=== PATIENT | female | born 1945 | race Caucasian/White ===

== ENCOUNTER 2016-11-24 05:26 | Day surgery (SDC) | payer MEDICARE, BC ==
[2016-11-24] MEDS ORDERED: Midazolam 1 MG/ML 2 ML SDV IV ONE ×3 (05:27→06:35)
[2016-11-24] MEDS ORDERED: fentaNYL 100 MCG/2 ML SDV IV ONE ×2 (05:27→06:34)
[2016-11-24] MEDS ORDERED: Dextrose 5%-0.45% NaCl 1,000 ML IV SCH ×2 (06:00→07:15)
[2016-11-24] MEDS ORDERED: Sodium Chloride 0.9% 10 ML Syringe FLUSH PRN ×2 (06:00→07:08)
[2016-11-24] MEDS ORDERED: Midazolam 1 MG/ML 2 ML SDV ONE (06:17)
[2016-11-24] MEDS ORDERED: fentaNYL 100 MCG/2 ML SDV ONE (06:17)
[2016-11-24 07:40] VITALS: BP 103/49
--- NOTE | 2016-11-24 14:05 | OR ---
DATE: 11/24/2016 PROCEDURE: Esophagogastroduodenoscopy and multiple pinch biopsies. INSTRUMENT USED: GIF-Q180 Olympus video panendoscope. PREMEDICATIONS: No oral topical anesthesia used. Fentanyl 100 mcg intravenous, Versed 2 mg intravenous, nasal O2 cannula. 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 INDICATION: The patient with persistent abdominal pain, dyspepsia, as well as nausea, unexplained, and not responsive to medical measures, on PPI. Esophagogastroduodenoscopy is performed for detection of any active erosive lesions, Talavera's esophagus and/or malignancy also under consideration, H. pylori status to be determined, small bowel biopsies to be obtained for celiac disease if indicated, endoscopic hemostasis therapy if needed. DESCRIPTION OF PROCEDURE: The scope was passed with ease. Adequate visualization of the esophagus was made from proximal to distal areas. No upper esophageal lesions identified. No distal esophageal stricture. No uphill or downhill esophageal varices. No Glendy-Goodwin tear. No evidence of erosive esophagitis by [place] criteria. No esophageal polyp or tumor mass identified. Z-line was seen at 40 cm distal to the oral verge, configuration consistent with grade 1 by ZAP classification. No proximal gastric varices noted. Gastric fundus examination by retroflexion showed no malignant lesions, no gastric ulcer, malignant mass, or vascular ectasia identified. Patchy areas of erythema were noted in the antrum. Duodenal bulb showed no ulcer. Visualized second part of the duodenum, showed some prominent fold. Photographs were taken, multiple pinch biopsies were obtained. Ampulla of Vater was found to be normal. Multiple pinch biopsies 4 in number were taken from different areas of the 2nd part of the duodenum and tissues were also obtained from the duodenal bulb at 9 o'clock and 12 o'clock positions and sent for any histopathologic evidence of celiac disease. Multiple pinch biopsies were obtained from the gastric antrum and proximal body and sent for PyloriTek test for H. pylori and histopathology. No bleeding was noted from any of the visualized areas at the completion of examination. IMPRESSION: Patchy antral gastritis. The patient tolerated the procedure well. [facility] /[id number]
== END 2016-11-24 08:57 | disposition home or self-care (01) ==
LOC: DL.ENDO 05:26
PROVIDERS: ATTEND Internal Medicine Gastroenterology
DX: K29.50 Unspecified chronic gastritis without bleeding (principal); F41.1 Generalized anxiety disorder; M19.90 Unspecified osteoarthritis, unspecified site; E78.5 Hyperlipidemia, unspecified; K21.9 Gastro-esophageal reflux disease without esophagitis; E03.9 Hypothyroidism, unspecified; M81.0 Age-related osteoporosis without current pathological fracture; K57.30 Diverticulosis of large intestine without perforation or abscess without bleeding; K80.20 Calculus of gallbladder without cholecystitis without obstruction; Z87.891 Personal history of nicotine dependence; Z98.890 Other specified postprocedural states
CPT/HCPCS: 43239; 87077; J2250; J3010; J7042; 88305; 88342

== ENCOUNTER 2017-05-30 13:20 | Emergency (ER) | payer MEDICARE, BC ==
[2017-05-30 13:32] VITALS: BP 82/64
[2017-05-30] MEDS ORDERED: Sodium Chloride 0.9% 10 ML Syringe FLUSH PRN (13:56)
[2017-05-30] MEDS ORDERED: Sodium Chloride 0.9% 1,000 ML IV ONE (13:58)
[2017-05-30] MEDS ORDERED: Sodium Chloride 0.9% 1,000 ML IV SCH (16:00)
--- NOTE | 2017-05-30 17:11 | EDM.PDOC ---
Scribed by Marleny Vuong 05/30/17 [id number] for Mario Weiss MD ED HPI GENERAL MEDICAL PROBLEM - General Chief Complaint: General Stated Complaint: [id number] LOW BLOOD PRESSURE Time Seen by Provider: 05/30/17 13:30 Source of Information: Reports: Patient, RN, RN Notes Reviewed History Limitations: Reports: No Limitations - History of Present Illness INITIAL COMMENTS - FREE TEXT/NARRATIVE: Patient presents from home by POV with complaint of generalized abdominal pain, loss of appetite, generalized weakness, and profound orthostatic dizziness with a brief syncopal episode this morning. Patient had her first chemo treatment on May 26. She felt fine the day of chemo and began to have abdominal pain. She denies any fever, chills, nausea, vomiting or diarrhea. She does admit to some generalized body aches. Duration: Getting Worse Location: Reports: Generalized Quality: Reports: Ache Severity: Severe Improves with: Reports: None Worsens with: Reports: None Associated Symptoms: Reports: No Other Symptoms Right Upper Abdomen Pain Score (Numeric/FACES): 10 - Related Data Allergies Allergy/AdvReac Type Severity Reaction Status Date / Time adhesive tape Allergy Rash Verified 11/24/16 05:42 benzalkonium chloride Allergy Rash Verified 11/24/16 05:42 [From Neosporin Nickolas To Go] Iodinated Contrast- Oral and Allergy Hives Verified 11/24/16 05:42 IV Dye pramoxine HCl Allergy Rash Verified 11/24/16 05:42 [From Neosporin Nickolas To Go] Home Meds: Home Meds Gabapentin [Neurontin] 300 mg PO BID 04/15/15 [History] Metoprolol Succinate [Toprol XL] 25 mg PO WITHDINNER 04/15/15 [History] Multivitamin [Multiple Vitamins] 1 tab PO DAILY 04/15/15 [History] Timolol [Betimol 0.5% Ophth Soln] 1 drop EYERT BID 04/15/15 [History] atorvaSTATin [Lipitor] 10 mg PO BEDTIME 04/15/15 [History] Cholecalciferol (Vitamin D3) [Vitamin D3] 400 units PO WITHLUNCH 04/16/15 [ History] Calcium Carbonate/Vitamin D3 [Calcium 500-Vit D3 400 Tablet] 1 tab PO DAILY [History] Fluocinonide 1 applic PO BID PRN 10/24/15 [History] Levothyroxine [Synthroid] 100 mcg PO ACBREAKFAST 10/24/15 [History] Acetaminophen [Tylenol Arthritis] 650 mg PO Q4HR PRN 08/10/16 [History] Cyanocobalamin (Vitamin B-12) [Vitamin B-12] 5,000 mcg SL DAILY 08/10/16 [ History] Loteprednol Etabonate [Alrex] 1 drop EYEBOTH DAILY 08/11/16 [History] Albuterol [Ventolin HFA] 2 puff INH Q4H PRN 11/23/16 [History] Omeprazole [Omeprazole] 1 cap PO ACBREAKFAST 11/23/16 [History] Ondansetron [Zofran] 1 tab PO Q8H PRN 11/23/16 [History] Zoledronic Acid in Water [Reclast] 1 injection IM .YEARLY 11/23/16 [History] Past Medical History HEENT History: Reports: Cataract, Glaucoma, Other (See Below) Other HEENT History: dry eye disease, Lichen Planus Cardiovascular History: Reports: Arrhythmia, High Cholesterol Respiratory History: Reports: Asthma, Bronchitis, Recurrent, Other (See Below) Other Respiratory History: LUNG NODULES Gastrointestinal History: Reports: Cholelithiasis, Chronic Constipation, Colon Polyp, Diverticulosis, GERD Genitourinary History: Reports: None 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 HX OF RIGHT HIP FRACTURE Neurological History: Reports: Migraines, Other (See Below) Other Neuro History: restless legs Psychiatric History: Reports: Anxiety Endocrine/Metabolic History: Reports: Hypothyroidism, Osteoporosis Hematologic History: Reports: B12 Deficiency Immunologic History: Reports: None Oncologic (Cancer) History: Reports: Breast Dermatologic History: Reports: None - Infectious Disease History Infectious Disease History: Reports: Chicken Pox, Measles, Mumps, Pertussis ( Whooping Cough) - Past Surgical History Head Surgeries/Procedures: Reports: None HEENT Surgical History: Reports: Cataract Surgery, Laser Surgery Cardiovascular Surgical History: Reports: None Respiratory Surgical History: Reports: None GI Surgical History: Reports: Colonoscopy, EGD, Polypectomy Female Surgical History: Reports: Mastectomy Other Female Surgeries/Procedures: LEFT SIDED MASTECTOMY Endocrine Surgical History: Reports: None Neurological Surgical History: Reports: None Musculoskeletal Surgical History: Reports: Other (See Below) Other Musculoskeletal Surgeries/Procedures:: Right hip fracture with repair, nail placed. left great screws placed with fusion, pin in right foot above right great toe for bunyon. right hand two knuckles replaced. Oncologic Surgical History: Reports: Mastectomy, Other (See Below) Other Oncologic Surgeries/Procedures: Left breast mastectomy Dermatological Surgical History: Reports: Skin Biopsy Social & Family History - Family History Family Medical History: Noncontributory - Tobacco Use Smoking Status *Q: Former Smoker Years of Tobacco use: 25 Used Tobacco, but Quit: Yes Month Tobacco Last Used: 03/29/1988 Second Hand Smoke Exposure: No - Caffeine Use Caffeine Use: Reports: Coffee Other Caffeine Use: 1 CUP OF TEA OR COFFEE, OCCASIONALLY - Recreational Drug Use Recreational Drug Use: No Drug Use in Last 12 Months: No ED ROS GENERAL - Review of Systems Review Of Systems: ROS reveals no pertinent complaints other than HPI. ED EXAM, GENERAL - Physical Exam Exam: See Below Exam Limited By: No Limitations General Appearance: Other (chronically ill appearing. ) Eye Exam: Bilateral Eye: Normal Inspection Ears: Normal External Exam, Normal Canal, Hearing Grossly Normal, Normal TMs Nose: Normal Inspection, Normal Mucosa, No Blood Throat/Mouth: Other (dry oral membranes) Head: Atraumatic, Normocephalic Neck: Normal Inspection, Supple, Non-Tender, Full Range of Motion Respiratory/Chest: No Respiratory Distress, Lungs Clear, Normal Breath Sounds, No Accessory Muscle Use, Chest Non-Tender Cardiovascular: Normal Peripheral Pulses, Regular Rate, Rhythm, No Edema, No Gallop, No JVD, No Murmur, No Rub GI/Abdominal: Normal Bowel Sounds, Other (Non-distended abdomen with generalized upper abdominal tenderness, noperitoneal signs. ) (Female) Exam: Deferred Rectal (Female) Exam: Deferred Back Exam: Normal Inspection, Full Range of Motion, NT Extremities: Normal Inspection, Normal Range of Motion, Non-Tender, Normal Capillary Refill, No Pedal Edema Neurological: Alert, Oriented, CN II-XII Intact, Normal Cognition, Normal Gait, Normal Reflexes, No Motor/Sensory Deficits Psychiatric: Normal Affect, Normal Mood Skin Exam: Warm, Dry, Intact, No Rash, Pallor EKG INTERPRETATION EKG Date: 05/30/17 Time: 14:22 Rhythm: Other (Sinus rhythm) Rate (Beats/Min): 90 [place]: Normal P-Wave: Present QRS: Other (First degree AV block. LAD. LAFB. R-wave progression.) ST-T: Normal QT: Normal Course - Vital Signs Last Recorded V/S: Last Vital Signs Temp 36.3 C 05/30/17 13:28 Pulse 91 05/30/17 13:28 Resp 18 05/30/17 13:28 BP 82/64 L 05/30/17 13:28 Pulse Ox 97 05/30/17 13:28 Orthostatic Blood Pressure [ 78/59 Sitting] Orthostatic Blood Pressure [ 91/41 Supine] - Orders/Labs/Meds Orders: Active Orders 24 hr Category Date Time Status EKG 12 Lead [EKG Documentation Completion] [] STAT Care 05/30/17 13:57 Active Peripheral IV Care [RC] . DIRECTED Care 05/30/17 13:57 Active CULTURE BLOOD [BC] Stat Lab 05/30/17 13:56 Received CULTURE BLOOD [BC] Stat Lab 05/30/17 14:25 Results Blood Culture x2 Reflex Set [OM.PC] Stat Oth 05/30/17 13:57 Ordered Peripheral IV Insertion Adult [OM.PC] Stat Oth 05/30/17 13:57 Ordered Labs: Laboratory Tests 05/30/17 05/30/17 05/30/17 Range/Units 13:56 13:56 13:56 WBC 8.6 (5.0-10.0) 10^3/uL RBC 4.25 (4.2-5.4) 10^6/uL Hgb 12.7 (12.0-16.0) g/dL Hct 38.2 (37.0-47.0) % MCV 89.9 (80-100) fL MCH 29.9 (27.0-34.0) pg MCHC 33.2 (33.0-35.0) g/dL Plt Count 242 (150-450) 10^3/uL Neut % (Auto) 66.1 (42.2-75.2) % Lymph % (Auto) 19.6 L (20.5-50.1) % [place] % (Auto) 10.4 H (2-8) % Eos % (Auto) 3.4 H (1.0-3.0) % Baso % (Auto) 0.5 (0.0-1.0) % Sodium 133 L (135-145) mmol/L Potassium 4.4 (3.6-5.0) mmol/L Chloride 99 L (101-111) mmol/L Carbon Dioxide 28.0 (21.0-31.0) mmol/L Anion Gap 10.4 BUN 33 H (7-18) mg/dL Creatinine 1.6 H (0.6-1.3) mg/dL Est Cr Clr Drug Dosing 25.14 mL/min Estimated GFR (MDRD) 32 BUN/Creatinine Ratio 20.62 Glucose 148 H (74-105) mg/dL Lactic Acid 1.2 (0.5-2.2) mmol/L Calcium 8.5 (8.4-10.2) mg/dl Total Bilirubin 0.6 (0.2-1.0) mg/dL AST 30 (10-42) IU/L ALT 26 (10-60) IU/L Alkaline Phosphatase 54 (42-121) IU/L Total Protein 5.5 L (6.7-8.2) g/dl Albumin 2.9 L (3.2-5.5) g/dl Globulin 2.6 Albumin/Globulin Ratio 1.12 Amylase 30 (28-100) U/L Lipase 14 L (22-51) U/L Urine Color (YELLOW) Urine Appearance (CLEAR) Urine pH (5.0-9.0) Ur Specific [place] (1.005-1.030) Urine Protein (NEGATIVE) Urine Glucose (UA) (NEGATIVE) Urine Ketones (NEGATIVE) Urine Occult Blood (NEGATIVE) Urine Nitrite (NEGATIVE) Urine Bilirubin (NEGATIVE) Urine Urobilinogen (0.2-1.0) mg/dL Ur Leukocyte Esterase (NEGATIVE) Urine RBC /HPF Urine WBC (0-5/HPF) /HPF Ur Epithelial Cells /HPF Urine Bacteria (0-FEW/HPF) /HPF 05/30/17 Range/Units 14:44 WBC (5.0-10.0) 10^3/uL RBC (4.2-5.4) 10^6/uL Hgb (12.0-16.0) g/dL Hct (37.0-47.0) % MCV (80-100) fL MCH (27.0-34.0) pg MCHC (33.0-35.0) g/dL Plt Count (150-450) 10^3/uL Neut % (Auto) (42.2-75.2) % Lymph % (Auto) (20.5-50.1) % [place] % (Auto) (2-8) % Eos % (Auto) (1.0-3.0) % Baso % (Auto) (0.0-1.0) % Sodium (135-145) mmol/L Potassium (3.6-5.0) mmol/L Chloride (101-111) mmol/L Carbon Dioxide (21.0-31.0) mmol/L Anion Gap BUN (7-18) mg/dL Creatinine (0.6-1.3) mg/dL Est Cr Clr Drug Dosing mL/min Estimated GFR (MDRD) BUN/Creatinine Ratio Glucose (74-105) mg/dL Lactic Acid (0.5-2.2) mmol/L Calcium (8.4-10.2) mg/dl Total Bilirubin (0.2-1.0) mg/dL AST (10-42) IU/L ALT (10-60) IU/L Alkaline Phosphatase (42-121) IU/L Total Protein (6.7-8.2) g/dl Albumin (3.2-5.5) g/dl Globulin Albumin/Globulin Ratio Amylase (28-100) U/L Lipase (22-51) U/L Urine Color Yellow (YELLOW) Urine Appearance Clear (CLEAR) Urine pH 7.0 (5.0-9.0) Ur Specific [place] 1.015 (1.005-1.030) Urine Protein >=300 H (NEGATIVE) Urine Glucose (UA) Negative (NEGATIVE) Urine Ketones Negative (NEGATIVE) Urine Occult Blood Negative (NEGATIVE) Urine Nitrite Negative (NEGATIVE) Urine Bilirubin Negative (NEGATIVE) Urine Urobilinogen 0.2 (0.2-1.0) mg/dL Ur Leukocyte Esterase Negative (NEGATIVE) Urine RBC 0-5 /HPF Urine WBC 0-5 (0-5/HPF) /HPF Ur Epithelial Cells Few /HPF Urine Bacteria Rare (0-FEW/HPF) /HPF Meds: Medications Discontinued Medications Generic Name Dose Route Start Last Admin Trade Name Freq PRN Reason Stop Dose Admin Sodium Chloride 1,000 mls @ 999 mls/hr 05/30/17 13:58 05/30/17 14:00 Normal Saline IV 05/30/17 14:58 999 mls/hr .BOLUS ONE Administration Sodium Chloride 1,000 mls @ 150 mls/hr 05/30/17 16:00 05/30/17 16:10 Normal Saline IV 150 mls/hr ASDIRECTED OMID Administration Sodium Chloride 10 ml 05/30/17 13:56 05/30/17 14:00 Saline Flush FLUSH 10 ml ASDIRECTED PRN Administration Keep Vein Open Departure - Departure Time of Disposition: 16:15 Disposition: DC/Tfer to [facility] 02 Condition: Serious Clinical Impression: Dehydration, Orthostatic hypotension Chemotherapy adverse reaction Qualifiers: Encounter type: initial encounter Qualified Code(s): T45.1X5A - Adverse effect of antineoplastic and immunosuppressive drugs, initial encounter - Discharge Information Referrals: Virgen Rosales PA [Primary Care Provider] - Forms: ED Department Discharge, Interfacility Transfer EMTALA - My Orders Last 24 Hours: My Active Orders 05/30/17 13:56 CULTURE BLOOD [BC] Stat 05/30/17 13:57 EKG 12 Lead [EKG Documentation Completion] [RC] STAT Peripheral IV Care [RC] . DIRECTED Blood Culture x2 Reflex Set [OM.PC] Stat Peripheral IV Insertion Adult [OM.PC] Stat 05/30/17 14:25 CULTURE BLOOD [BC] Stat - Assessment/Plan Last 24 Hours: My Active Orders 05/30/17 13:56 CULTURE BLOOD [BC] Stat 05/30/17 13:57 EKG 12 Lead [EKG Documentation Completion] [RC] STAT Peripheral IV Care [RC] . DIRECTED Blood Culture x2 Reflex Set [OM.PC] Stat Peripheral IV Insertion Adult [OM.PC] Stat 05/30/17 14:25 CULTURE BLOOD [BC] Stat I have read and agree with the documentation that has been completed regarding this visit. By signing this record, I attest that the documentation was completed in my physical presence and is an accurate record of the encounter.
--- NOTE | 2017-06-01 11:57 | EKG ---
05/30/2017 - SAMEER ABEBA L - TIME: 1422 hours. EKG shows sinus rhythm with a heart rate of 90 beats per minute. QRS complexes have low voltage throughout. There is evidence of first-degree AV block with a CO interval 256 milliseconds. Normal axis. No T-wave changes. No ST segment changes. [facility] /[id number]
== END 2017-05-30 16:30 ==
LOC: DL.ED 13:20
DX: I95.1 Orthostatic hypotension (principal); E86.0 Dehydration; T45.1X5A Adverse effect of antineoplastic and immunosuppressive drugs, initial encounter; E78.00 Pure hypercholesterolemia, unspecified; J45.909 Unspecified asthma, uncomplicated; E03.9 Hypothyroidism, unspecified; Z87.891 Personal history of nicotine dependence; Z79.899 Other long term (current) drug therapy; Z88.8 Allergy status to other drugs, medicaments and biological substances; Z91.041 Radiographic dye allergy status; Z91.048 Other nonmedicinal substance allergy status
CPT/HCPCS: 36415; 80053; 81001; 82150; 83605; 83690; 85025; 87040; 93005; 93010; 96360; 99285; J7030; J7050

== ENCOUNTER 2017-06-08 11:04 | Observation (INO) | payer MEDICARE, BC ==
[2017-06-08] MEDS ORDERED: Sodium Chloride 0.9% 1,000 ML IV ONE (11:29)
--- NOTE | 2017-06-08 12:05 | EDM.PDOC ---
ED HPI GENERAL MEDICAL PROBLEM - General Chief Complaint: Cardiovascular Problem Stated Complaint: [id number] LOW BLOOD PRESSURE Time Seen by Provider: 06/08/17 11:20 Source of Information: Reports: Patient History Limitations: Reports: No Limitations - History of Present Illness INITIAL COMMENTS - FREE TEXT/NARRATIVE: Leisa presents to the ED today due to a low blood pressure reading at home. She reports that she checked her blood pressure this am and noted that it was 65/45 per her home monitor. She reports that she has been having dizziness off and on for last several weeks. She did have syncopal episode at home. Denies hitting her head. Denies chest pain, shortness of breath, nausea, blood in her stool or fevers at home. Reports that she has had abd pain for the last 2 weeks and was previously worked up for this with lab work and a MRI. Mild pain at this time. Onset: Gradual (Over the last two weeks ) Location: Reports: Abdomen Quality: Reports: Other (cramping pain) Severity: Mild Improves with: Reports: None Worsens with: Reports: Movement Associated Symptoms: Reports: Syncope, Other (Dizziness ) - Related Data Allergies Allergy/AdvReac Type Severity Reaction Status Date / Time adhesive tape Allergy Rash Verified 11/24/16 05:42 benzalkonium chloride Allergy Rash Verified 11/24/16 05:42 [From Neosporin Nickolas To Go] Iodinated Contrast- Oral and Allergy Hives Verified 11/24/16 05:42 IV Dye pramoxine HCl Allergy Rash Verified 11/24/16 05:42 [From Neosporin Nickolas To Go] Home Meds: Home Meds Gabapentin [Neurontin] 300 mg PO BID 04/15/15 [History] Metoprolol Succinate [Toprol XL] 25 mg PO WITHDINNER 04/15/15 [History] Multivitamin [Multiple Vitamins] 1 tab PO DAILY 04/15/15 [History] Timolol [Betimol 0.5% Ophth Soln] 1 drop EYERT BID 04/15/15 [History] atorvaSTATin [Lipitor] 10 mg PO BEDTIME 04/15/15 [History] Cholecalciferol (Vitamin D3) [Vitamin D3] 400 units PO WITHLUNCH 04/16/15 [ History] Calcium Carbonate/Vitamin D3 [Calcium 500-Vit D3 400 Tablet] 1 tab PO DAILY [History] Fluocinonide 1 applic PO BID PRN 10/24/15 [History] Levothyroxine [Synthroid] 100 mcg PO ACBREAKFAST 10/24/15 [History] Acetaminophen [Tylenol Arthritis] 650 mg PO Q4HR PRN 08/10/16 [History] Cyanocobalamin (Vitamin B-12) [Vitamin B-12] 5,000 mcg SL DAILY 08/10/16 [ History] Loteprednol Etabonate [Alrex] 1 drop EYEBOTH DAILY 08/11/16 [History] Albuterol [Ventolin HFA] 2 puff INH Q4H PRN 11/23/16 [History] Omeprazole [Omeprazole] 1 cap PO ACBREAKFAST 11/23/16 [History] Ondansetron [Zofran] 1 tab PO Q8H PRN 11/23/16 [History] Zoledronic Acid in Water [Reclast] 1 injection IM .YEARLY 11/23/16 [History] Past Medical History HEENT History: Reports: Cataract, Glaucoma, Other (See Below) Other HEENT History: dry eye disease, Lichen Planus Cardiovascular History: Reports: Arrhythmia, High Cholesterol Respiratory History: Reports: Asthma, Bronchitis, Recurrent, Other (See Below) Other Respiratory History: LUNG NODULES Gastrointestinal History: Reports: Cholelithiasis, Chronic Constipation, Colon Polyp, Diverticulosis, GERD Genitourinary History: Reports: Other (See Below) Other Genitourinary History: kidney disease-amyloidosis [employer] History: Reports: , Other (See Below) Other OB/BYN History: lichen sclerosus(vulva) Musculoskeletal History: Reports: Arthritis, Fracture, Osteoarthritis, Osteoporosis, Other (See Below) Other Musculoskeletal History: DJD. HX OF RIGHT HIP FRACTURE Neurological History: Reports: Migraines, Other (See Below) Other Neuro History: restless legs Psychiatric History: Reports: Anxiety Endocrine/Metabolic History: Reports: Hypothyroidism, Osteoporosis Hematologic History: Reports: B12 Deficiency Immunologic History: Reports: None Oncologic (Cancer) History: Reports: Breast Dermatologic History: Reports: None - Infectious Disease History Infectious Disease History: Reports: Chicken Pox, Measles, Mumps, Pertussis ( Whooping Cough) - Past Surgical History Head Surgeries/Procedures: Reports: None HEENT Surgical History: Reports: Cataract Surgery, Laser Surgery Cardiovascular Surgical History: Reports: None Respiratory Surgical History: Reports: None GI Surgical History: Reports: Colonoscopy, EGD, Polypectomy Female Surgical History: Reports: Mastectomy Other Female Surgeries/Procedures: LEFT SIDED MASTECTOMY Endocrine Surgical History: Reports: None Neurological Surgical History: Reports: None Musculoskeletal Surgical History: Reports: Other (See Below) Other Musculoskeletal Surgeries/Procedures:: Right hip fracture with repair, nail placed. left great screws placed with fusion, pin in right foot above right great toe for bunyon. right hand two knuckles replaced. Oncologic Surgical History: Reports: Mastectomy, Other (See Below) Other Oncologic Surgeries/Procedures: Left breast mastectomy Dermatological Surgical History: Reports: Skin Biopsy Social & Family History - Family History Family Medical History: Noncontributory - Tobacco Use Smoking Status *Q: Never Smoker Years of Tobacco use: 25 Used Tobacco, but Quit: Yes Month/Year Tobacco Last Used: 03/29/1988 Second Hand Smoke Exposure: No - Caffeine Use Caffeine Use: Reports: None Other Caffeine Use: 1 CUP OF TEA OR COFFEE, OCCASIONALLY - Recreational Drug Use Recreational Drug Use: No Drug Use in Last 12 Months: No ED ROS GENERAL - Review of Systems Review Of Systems: ROS reveals no pertinent complaints other than HPI. ED EXAM, GENERAL - Physical Exam Exam: See Below Exam Limited By: No Limitations General Appearance: Alert, WD/WN, No Apparent Distress Eye Exam: Right Eye: Other (Bruising present to eye. Patient denies injury. denies vision changes), Bilateral Eye: PERRL Ears: Normal External Exam, Normal Canal, Hearing Grossly Normal, Normal TMs Ear Exam: Bilateral Ear: Auricle Normal, Canal Normal, TM normal Nose: Normal Inspection, Normal Mucosa, No Blood Throat/Mouth: Normal Inspection, Normal Lips, Normal Teeth, Normal Gums, Normal Oropharynx, Normal Voice, No Airway Compromise Head: Atraumatic, Normocephalic Neck: Normal Inspection, Supple, Non-Tender, Full Range of Motion Respiratory/Chest: No Respiratory Distress, Lungs Clear, Normal Breath Sounds, No Accessory Muscle Use, Chest Non-Tender Cardiovascular: Normal Peripheral Pulses, Regular Rate, Rhythm, No Edema, No Gallop, No JVD, No Murmur, No Rub GI/Abdominal: Normal Bowel Sounds, Soft, Non-Tender, No Organomegaly, No Distention, No Abnormal Bruit, No Mass (Female) Exam: Deferred Rectal (Female) Exam: Normal Exam, Normal Rectal Tone Back Exam: Normal Inspection, Full Range of Motion, NT Extremities: Normal Inspection, Normal Range of Motion, Non-Tender, Normal Capillary Refill, No Pedal Edema Neurological: Alert, Oriented, CN II-XII Intact, Normal Cognition, Normal Gait, Normal Reflexes, No Motor/Sensory Deficits Psychiatric: Normal Affect, Normal Mood Skin Exam: Warm, Dry, Intact, Normal Color, No Rash Lymphatic: No Adenopathy EKG INTERPRETATION EKG Date: 06/08/17 Time: 11:36 Rhythm: Other (First degree AV block) Rate (Beats/Min): 92 Comparison: No Change Course - Vital Signs Last Recorded V/S: Last Vital Signs Temp 37.2 C 06/08/17 11:10 Pulse Resp 16 06/08/17 11:10 BP 75/40 L 06/08/17 11:10 Pulse Ox 95 06/08/17 11:10 Orthostatic Blood Pressure [] 103/51 Orthostatic Blood Pressure [] 100/61 Orthostatic Blood Pressure [] 101/65 - Orders/Labs/Meds Orders: Active Orders 24 hr Category Date Time Status EKG Documentation Completion [RC] URGENT Care 06/08/17 11:28 Active Labs: Laboratory Tests 06/08/17 06/08/17 06/08/17 Range/Units 11:33 11:33 11:45 WBC 8.4 (5.0-10.0) 10^3/uL RBC 3.47 L (4.2-5.4) 10^6/uL Hgb 10.4 L D (12.0-16.0) g/dL Hct 30.9 L (37.0-47.0) % MCV 89.0 (80-100) fL MCH 30.0 (27.0-34.0) pg MCHC 33.7 (33.0-35.0) g/dL Plt Count 201 (150-450) 10^3/uL Neut % (Auto) 67.0 (42.2-75.2) % Lymph % (Auto) 17.8 L (20.5-50.1) % [place] % (Auto) 11.5 H (2-8) % Eos % (Auto) 3.3 H (1.0-3.0) % Baso % (Auto) 0.4 (0.0-1.0) % Sodium 134 L (135-145) mmol/L Potassium 4.4 (3.6-5.0) mmol/L Chloride 103 (101-111) mmol/L Carbon Dioxide 26.0 (21.0-31.0) mmol/L Anion Gap 9.4 BUN 29 H (7-18) mg/dL Creatinine 1.7 H (0.6-1.3) mg/dL Est Cr Clr Drug Dosing 23.66 mL/min Estimated GFR (MDRD) 30 BUN/Creatinine Ratio 17.05 Glucose 90 (74-105) mg/dL Calcium 8.5 (8.4-10.2) mg/dl Total Bilirubin 0.6 (0.2-1.0) mg/dL AST 25 (10-42) IU/L ALT 21 (10-60) IU/L Alkaline Phosphatase 48 (42-121) IU/L Troponin I 0.04 H* (0.00-0.02) ng/ml Total Protein 4.7 L (6.7-8.2) g/dl Albumin 2.3 L (3.2-5.5) g/dl Globulin 2.4 Albumin/Globulin Ratio 0.96 Urine Color Yellow (YELLOW) Urine Appearance Clear (CLEAR) Urine pH 6.5 (5.0-9.0) Ur Specific [place] 1.020 (1.005-1.030) Urine Protein >=300 H (NEGATIVE) Urine Glucose (UA) Negative (NEGATIVE) Urine Ketones Negative (NEGATIVE) Urine Occult Blood Trace-lysed H (NEGATIVE) Urine Nitrite Negative (NEGATIVE) Urine Bilirubin Negative (NEGATIVE) Urine Urobilinogen 0.2 (0.2-1.0) mg/dL Ur Leukocyte Esterase Negative (NEGATIVE) Urine RBC 0-5 /HPF Urine WBC 0-5 (0-5/HPF) /HPF Ur Epithelial Cells Rare /HPF Urine Bacteria Rare (0-FEW/HPF) /HPF Meds: Medications Discontinued Medications Generic Name Dose Route Start Last Admin Trade Name Freq PRN Reason Stop Dose Admin Sodium Chloride 1,000 mls @ 999 mls/hr 06/08/17 11:29 06/08/17 11:48 Normal Saline IV 06/08/17 12:29 999 mls/hr .BOLUS ONE Administration - Re-Assessments/Exams Free Text/Narrative Re-Assessment/Exam: 06/13/17 1245: Attempted to call [place] and arrange for patient transfer. [facility] currently does not have telemetry beds available to take this patient. Departure - Departure Time of Disposition: 12:56 Disposition: Admitted As Inpatient 65 Condition: Fair Clinical Impression: Syncope Qualifiers: Syncope type: unspecified Qualified Code(s): R55 - Syncope and collapse Care Plan Goals: Discussed history with Dr Mills he has agreed to admit patient for observation. - My Orders Last 24 Hours: My Active Orders 06/08/17 11:28 EKG Documentation Completion [RC] URGENT - Assessment/Plan Last 24 Hours: My Active Orders 06/08/17 11:28 EKG Documentation Completion [RC] URGENT
[2017-06-08] MEDS ORDERED: Acetaminophen 325 MG Tab PO PRN (13:40)
[2017-06-08] MEDS ORDERED: Albuterol 6.7 GM Inhaler INH PRN (13:40)
[2017-06-08] MEDS ORDERED: Ondansetron 4 MG Tab.DIS PO PRN (13:40)
[2017-06-08] MEDS ORDERED: Sodium Chloride 0.9% 500 ML IV SCH (13:45)
[2017-06-08] MEDS ORDERED: Zolpidem 5 MG Tab PO PRN (14:05)
[2017-06-08] MEDS ORDERED: Sodium Chloride 0.9% 10 ML Syringe FLUSH PRN (14:05)
--- NOTE | 2017-06-08 14:24 | PCM.HP ---
H&P History of Present Illness - General Date of Service: 06/08/17 Admit Problem/Dx: Admission Diagnosis/Problem Admission Diagnosis/Problem Hypotension Source of Information: Patient - History of Present Illness Initial Comments - Free Text/Narative: The patient is a 71-year-old lady with a history of multiple myeloma. The patient has been on chemotherapy. She was recently admitted to [facility] with complaints of hypotension and abdomen pain. Extensive abdomen overt, no significant findings. Computed to the pain. She was treated with IV fluids and it was felt that the reason for the hypotension was dehydration following chemotherapy. The patient was discharged last Wednesday after a new round of chemotherapy with CyBorD, She has been measuring her blood pressure at home and noted that today it was in the 60s. Yesterday was low to at home around 80s but then followed up at the clinic and a blood pressure was better in the low 100s. She has been trying to drink a lot of fluids lately. She has had no syncopal episode this time but feeling weak. No severe abdominal pain but does have continued discomfort. No urinary burning or hematuria but she did develop a hematoma around the right eye. - Related Data Allergies/Adverse Reactions: Allergies Allergy/AdvReac Type Severity Reaction Status Date / Time adhesive tape Allergy Rash Verified 06/08/17 14:04 benzalkonium chloride Allergy Rash Verified 06/08/17 14:04 [From Neosporin Nickolas To Go] Iodinated Contrast- Oral and Allergy Hives Verified 06/08/17 14:04 IV Dye pramoxine HCl Allergy Rash Verified 06/08/17 14:04 [From Neosporin Nickolas To Go] Home Medications: Home Meds Gabapentin [Neurontin] 300 mg PO TID 04/15/15 [History] Metoprolol Succinate [Toprol XL] 12.5 mg PO WITHDINNER 04/15/15 [History] Multivitamin [Multiple Vitamins] 1 tab PO DAILY 04/15/15 [History] Timolol [Betimol 0.5% Ophth Soln] 1 drop EYERT BID 04/15/15 [History] atorvaSTATin [Lipitor] 10 mg PO BEDTIME 04/15/15 [History] Cholecalciferol (Vitamin D3) [Vitamin D3] 400 units PO DAILY 04/16/15 [History] Calcium Carbonate/Vitamin D3 [Calcium 500-Vit D3 400 Tablet] 1 tab PO ACLUNCH [History] Fluocinonide 1 applic PO BID PRN 10/24/15 [History] Levothyroxine [Synthroid] 100 mcg PO ACBREAKFAST 10/24/15 [History] Acetaminophen [Tylenol Arthritis] 650 mg PO Q4HR PRN 08/10/16 [History] Loteprednol Etabonate [Alrex] 1 drop EYEBOTH DAILY PRN 08/11/16 [History] Albuterol [Ventolin HFA] 2 puff INH Q4H PRN 11/23/16 [History] Ondansetron [Zofran] 1 tab PO Q8H PRN 11/23/16 [History] Zoledronic Acid in Water [Reclast] 1 injection IM .YEARLY 11/23/16 [History] Acyclovir [Zovirax] 400 mg PO BID 06/08/17 [History] Pantoprazole Sodium [Protonix] 40 mg PO DAILY 06/08/17 [History] Past Medical History HEENT History: Reports: Cataract, Glaucoma, Other (See Below) Other HEENT History: dry eye disease, Lichen Planus Cardiovascular History: Reports: Arrhythmia, High Cholesterol Respiratory History: Reports: Asthma, Bronchitis, Recurrent, Other (See Below) Other Respiratory History: LUNG NODULES Gastrointestinal History: Reports: Cholelithiasis, Chronic Constipation, Colon Polyp, Diverticulosis, GERD Genitourinary History: Reports: Other (See Below) Other Genitourinary History: kidney disease-amyloidosis 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 HX OF RIGHT HIP FRACTURE Neurological History: Reports: Migraines, Other (See Below) Other Neuro History: restless legs Psychiatric History: Reports: Anxiety Endocrine/Metabolic History: Reports: Hypothyroidism, Osteoporosis Hematologic History: Reports: B12 Deficiency Immunologic History: Reports: None Oncologic (Cancer) History: Reports: Breast Dermatologic History: Reports: None - Infectious Disease History Infectious Disease History: Reports: Chicken Pox, Measles, Mumps, Pertussis ( Whooping Cough) - Past Surgical History Head Surgeries/Procedures: Reports: None HEENT Surgical History: Reports: Cataract Surgery, Laser Surgery Cardiovascular Surgical History: Reports: None Respiratory Surgical History: Reports: None GI Surgical History: Reports: Colonoscopy, EGD, Polypectomy Female Surgical History: Reports: Mastectomy Other Female Surgeries/Procedures: LEFT SIDED MASTECTOMY Endocrine Surgical History: Reports: None Neurological Surgical History: Reports: None Musculoskeletal Surgical History: Reports: Other (See Below) Other Musculoskeletal Surgeries/Procedures:: Right hip fracture with repair, nail placed. left great screws placed with fusion, pin in right foot above right great toe for bunyon. right hand two knuckles replaced. Oncologic Surgical History: Reports: Mastectomy, Other (See Below) Other Oncologic Surgeries/Procedures: Left breast mastectomy Dermatological Surgical History: Reports: Skin Biopsy Social & Family History - Family History Family Medical History: Noncontributory - Tobacco Use Smoking Status *Q: Never Smoker Years of Tobacco use: 25 Used Tobacco, but Quit: Yes Month/Year Tobacco Last Used: 03/29/1988 Second Hand Smoke Exposure: No - Caffeine Use Caffeine Use: Reports: None Other Caffeine Use: 1 CUP OF TEA OR COFFEE, OCCASIONALLY - Recreational Drug Use Recreational Drug Use: No Drug Use in Last 12 Months: No H&P Review of Systems - Review of Systems: Review Of Systems: See Below General: Reports: Malaise, Weakness. Denies: Fever Pulmonary: Denies: Shortness of Breath Cardiovascular: Denies: Chest Pain Gastrointestinal: Reports: Abdominal Pain, Other ( last bowel movement on Wednesday). Denies: Diarrhea (Discomfort) Psychiatric: Denies: Confusion Hematologic/Lymphatic: Reports: Anemia, Other (Right periorbital hematoma) Exam - Exam Exam: See Below - Vital Signs Vital Signs: Last Vital Signs Temp 36.9 C 06/08/17 13:39 Pulse 72 06/08/17 13:39 Resp 20 06/08/17 13:39 BP 117/60 06/08/17 13:39 Pulse Ox 96 06/08/17 13:39 Weight: 54.703 kg - Exam General: Alert, Oriented Neck: Supple Lungs: Normal Respiratory Effort, Decreased Breath Sounds Cardiovascular: Regular Rate, Regular Rhythm GI/Abdominal Exam: Normal Bowel Sounds, Soft, Non-Tender Extremities: Pedal Edema (Trace bilateral) - Patient Data Result Diagrams: 06/08/17 11:33 06/08/17 11:33 *Q Meaningful Use (ADM) - VTE *Q VTE Criteria *Q: - Stroke *Q Stroke Criteria *Q: - AMI *Q AMI Criteria *Q: - Problem List (1) Hypotension SNOMED Code(s): 49614204 ICD Code: I95.9 - HYPOTENSION, UNSPECIFIED Status: Acute Current Visit: Yes (2) Acute renal failure SNOMED Code(s): 94064466 ICD Code: N17.9 - ACUTE KIDNEY FAILURE, UNSPECIFIED Status: Acute Current Visit: Yes (3) Dehydration SNOMED Code(s): 53057595 ICD Code: E86.0 - DEHYDRATION Status: Acute Current Visit: No Problem List Initiated/Reviewed/Updated: Yes Orders Last 24hrs: Active Orders 24 hr Category Date Time Status Patient Status [ADT] Routine ADT 06/08/17 14:05 Ordered Antiembolic Devices [RC] PER UNIT ROUTINE Care 06/08/17 14:08 Ordered Oxygen Therapy [RC] PRN Care 06/08/17 14:05 Ordered Peripheral IV Care [RC] . DIRECTED Care 06/08/17 14:08 Ordered Telemetry Monitoring [Cardiac Monitoring] [RC] . Care 06/08/17 14:17 Ordered DIRECTED Up With Assistance [RC] ASDIRECTED Care 06/08/17 14:05 Ordered Vital Signs [RC] Q4H Care 06/08/17 14:05 Ordered Regular Diet [DIET] Diet 06/08/17 Dinner Ordered BASIC METABOLIC PANEL,BMP [CHEM] AM Lab 06/09/17 05:11 Ordered CBC WITH AUTO DIFF [HEME] AM Lab 06/09/17 05:11 Ordered Acetaminophen [Tylenol Arthritis] Med 06/08/17 13:40 Ordered 650 mg PO Q4HR PRN Acyclovir [Zovirax] Med 06/08/17 21:00 Ordered 400 mg PO BID Albuterol [Proventil HFA] Med 06/08/17 13:40 Ordered 2 puff INH Q4H PRN Calcium Carbonate/Vitamin D3 [Calcium 500-Vit D3 400 Med 06/09/17 09:00 Ordered Tablet] 1 tab PO DAILY Cholecalciferol (Vitamin D3) [Vitamin D3] Med 06/09/17 12:00 Ordered 400 units PO WITHLUNCH Cyanocobalamin (Vitamin B-12) [Vitamin B-12] Med 06/09/17 09:00 Ordered 5,000 mcg SL DAILY Gabapentin [Neurontin] Med 06/08/17 21:00 Ordered 300 mg PO BID Heparin Sodium Med 06/08/17 22:00 Ordered 5,000 units SUBCUT Q8HR Levothyroxine [Synthroid] Med 06/09/17 06:00 Ordered 100 mcg PO ACBREAKFAST Loteprednol Etabonate [Alrex] Med 06/09/17 09:00 Ordered 1 drop EYEBOTH DAILY Multivitamin [Multiple Vitamins] Med 06/09/17 09:00 Ordered 1 tab PO DAILY Omeprazole Med 06/09/17 06:00 Ordered 1 cap PO ACBREAKFAST Ondansetron Med 06/08/17 13:40 Ordered 1 tab PO Q8H PRN Sodium Chloride 0.9% @ 100 MLS/HR(500ml) Med 06/08/17 13:45 Ordered Sodium Chloride 0.9% [Normal Saline] 500 ml IV ASDIRECTED Sodium Chloride 0.9% [Saline Flush] Med 06/08/17 14:05 Ordered 10 ml FLUSH ASDIRECTED PRN Timolol [Betimol 0.5% Ophth Soln] Med 06/08/17 21:00 Ordered 1 drop EYERT BID Zolpidem [Ambien] Med 06/08/17 14:05 Ordered 5 mg PO BEDTIME PRN atorvaSTATin [Lipitor] Med 06/08/17 21:00 Ordered 10 mg PO BEDTIME Antiembolic Hose [OM.PC] Per Unit Routine Oth 06/08/17 14:07 Ordered Peripheral IV Insertion Adult [OM.PC] Routine Oth 06/08/17 14:05 Ordered Resuscitation Status Routine Resus Stat 06/08/17 14:05 Ordered Medication Orders Acetaminophen (Tylenol) 650 mg PO Q4HR PRN PRN Reason: Pain Albuterol (Proventil Hfa) 0 gm INH Q4H PRN PRN Reason: ASTHMA Atorvastatin Calcium (Lipitor) 10 mg PO BEDTIME OMID Calcium Carbonate (Calcium Carbonate/Vitamin D 1250 Mg-200 Unit) 1 tab PO DAILY OMID Cholecalciferol (Vitamin D3) 400 units PO WITHLUNCH OMID Gabapentin (Neurontin) 300 mg PO BID OMID Heparin Sodium (Porcine) (Heparin Sodium) 5,000 units SUBCUT Q8HR OMID Sodium Chloride (Normal Saline) 500 mls @ 100 mls/hr IV ASDIRECTED OMID Levothyroxine Sodium (Synthroid) 100 mcg PO ACBREAKFAST OMID Multivitamins (Thera) 1 each PO DAILY OMID Non-Formulary Medication (Cyanocobalamin (Vitamin B-12) [Vitamin B-12]) 5,000 mcg SL DAILY OMID Non-Formulary Medication (Loteprednol Etabonate [Alrex]) 1 drop EYEBOTH DAILY OMID Non-Formulary Medication (Acyclovir [Zovirax]) 400 mg PO BID OMID Omeprazole (Omeprazole) 20 mg PO ACBREAKFAST OMID Ondansetron HCl (Zofran Odt) 4 mg PO Q8H PRN PRN Reason: Nausea Sodium Chloride (Saline Flush) 10 ml FLUSH ASDIRECTED PRN PRN Reason: Keep Vein Open Timolol Maleate (Timoptic 0.5% Ophth Soln) 0 ml EYERT BID OMID Zolpidem Tartrate (Ambien) 5 mg PO BEDTIME PRN PRN Reason: Sleep Assessment/Plan Comment:: The patient is a 71-year-old lady who presented with hypotension. She has been feeling weak but had no syncopal episode this time #1 hypotension Likely multifactorial due to medication, dehydration last echo 05/2017 Interpretation Summary The left ventricular ejection fraction is normal. Ejection Fraction = 65-70%. There is mild concentric left ventricular hypertrophy. There is mild tricuspid regurgitation. Trivial pericardial effusion. We'll stop the metoprolol Blood pressure improved with IV fluid and continue oral rehydration If no improvement consider aspiration for at adrenal insufficiency #2 acute renal failure Last creatinine at [facility] was around 1.2 Hydrate the patient, follow blood pressure Recheck electrolytes and creatinine in the morning #3 multiple myeloma Follow-up with oncology #4 DVT prophylaxis with subcutaneous heparin
[2017-06-08] MEDS ORDERED: atorvaSTATin 10 MG Tab PO SCH (21:00)
[2017-06-08] MEDS: Gabapentin 300 MG Cap PO SCH (22:35)
[2017-06-08] MEDS: Heparin Sodium 5,000 Units/ML Vial SUBCUT SCH (22:36)
[2017-06-08] MEDS: Acyclovir 200 MG Cap PO SCH (22:36)
[2017-06-08] MEDS: Timolol Maleate 0.5% Ophth Soln 5 ML Bottle EYERT SCH (22:36)
[2017-06-09] MEDS ORDERED: Omeprazole 20 MG Cap.CR PO SCH (06:00)
[2017-06-09] MEDS ORDERED: Levothyroxine 100 MCG Tab PO SCH (06:00)
[2017-06-09] MEDS: Heparin Sodium 5,000 Units/ML Vial SUBCUT SCH (06:55)
[2017-06-09 07:49] VITALS: BP 106/64
[2017-06-09] MEDS ORDERED: Calcium Carbonate/Vitamin D3 1250 MG-200 Unit Tab PO SCH (09:00)
[2017-06-09] MEDS ORDERED: [UNRECOGNIZED DRUG - OTHER] SL SCH (09:00)
[2017-06-09] MEDS ORDERED: CYANOCOBALAMIN 5000 MCG SL SCH (09:00)
[2017-06-09] MEDS ORDERED: LOTEPREDNOL ETABONATE EYEBOTH SCH (09:00)
[2017-06-09] MEDS ORDERED: Multivitamins,Therapeutic Tab PO SCH (09:00)
--- NOTE | 2017-06-09 09:30 | PCM.DCSUM1 ---
Discharge Summary - Hospital Course Free Text/Narrative:: The patient is a 71-year-old lady who presented with hypotension. She has been feeling weak but had no syncopal episode this time she has been CYBorD cheom for MM. #1 hypotension Likely multifactorial due to chemo, dehydration last echo 05/2017 Interpretation Summary The left ventricular ejection fraction is normal. Ejection Fraction = 65-70%. There is mild concentric left ventricular hypertrophy. There is mild tricuspid regurgitation. Trivial pericardial effusion. We'll stop the metoprolol Blood pressure improved with IV fluid and oral rehydration #2 acute renal failure with admission Cr 1.6 Last creatinine at [facility] was around 1.2 Hydrated the patient, blood pressure improved creatinine improved to 1.4 #3 multiple myeloma Follow-up with oncology on Wednesday - Discharge Data Discharge Date: 06/09/17 Discharge Disposition: Home, Self-Care 01 Condition: Good - Discharge Diagnosis/Problem(s) (1) Hypotension SNOMED Code(s): 42879023 ICD Code: I95.9 - HYPOTENSION, UNSPECIFIED Status: Acute Current Visit: Yes (2) Acute renal failure SNOMED Code(s): 03279593 ICD Code: N17.9 - ACUTE KIDNEY FAILURE, UNSPECIFIED Status: Acute Current Visit: Yes (3) Dehydration SNOMED Code(s): 92598316 ICD Code: E86.0 - DEHYDRATION Status: Acute Current Visit: No - Patient Instructions Diet: Usual Diet as Tolerated Diet, Other: encourage fluids Activity: As Tolerated Activity, Other: use ARA stocking - Discharge Plan Home Medications: Home Meds Gabapentin [Neurontin] 300 mg PO TID 04/15/15 [History] Multivitamin [Multiple Vitamins] 1 tab PO DAILY 04/15/15 [History] Timolol [Betimol 0.5% Ophth Soln] 1 drop EYERT BID 04/15/15 [History] atorvaSTATin [Lipitor] 10 mg PO BEDTIME 04/15/15 [History] Cholecalciferol (Vitamin D3) [Vitamin D3] 400 units PO DAILY 04/16/15 [History] Calcium Carbonate/Vitamin D3 [Calcium 500-Vit D3 400 Tablet] 1 tab PO ACLUNCH [History] Fluocinonide 1 applic PO BID PRN 10/24/15 [History] Levothyroxine [Synthroid] 100 mcg PO ACBREAKFAST 10/24/15 [History] Acetaminophen [Tylenol Arthritis] 650 mg PO Q4HR PRN 08/10/16 [History] Loteprednol Etabonate [Alrex] 1 drop EYEBOTH DAILY PRN 08/11/16 [History] Albuterol [Ventolin HFA] 2 puff INH Q4H PRN 11/23/16 [History] Ondansetron [Zofran] 1 tab PO Q8H PRN 11/23/16 [History] Zoledronic Acid in Water [Reclast] 1 injection IM .YEARLY 11/23/16 [History] Acyclovir [Zovirax] 400 mg PO BID 06/08/17 [History] Pantoprazole Sodium [Protonix] 40 mg PO DAILY 06/08/17 [History] - Discharge Summary/Plan Comment DC Time >30 min.: No - General Info Date of Service: 06/09/17 - Review of Systems General: Denies: Fever, Weakness Pulmonary: Denies: Shortness of Breath Cardiovascular: Reports: Edema (trace b/l Legs) Gastrointestinal: Denies: Abdominal Pain Psychiatric: Denies: Confusion - Patient Data Vitals - Most Recent: Last Vital Signs Temp 37.3 C 06/09/17 07:48 Pulse 92 06/09/17 07:48 Resp 20 06/09/17 07:48 BP 106/64 06/09/17 07:48 Pulse Ox 94 L 06/09/17 07:48 Weight - Most Recent: 54.703 kg I&O - Last 24 hours: Intake & Output 06/08/17 06/09/17 06/09/17 22:59 06:59 14:59 Intake Total 120 925 Output Total 1100 1150 600 Balance -980 -225 -600 Lab Results - Last 24 hrs: Laboratory Results - last 24 hr 06/09/17 06/09/17 Range/Units 07:02 07:02 WBC 6.8 (5.0-10.0) 10^3/uL RBC 3.47 L (4.2-5.4) 10^6/uL Hgb 10.3 L (12.0-16.0) g/dL Hct 31.2 L (37.0-47.0) % MCV 89.9 (80-100) fL MCH 29.7 (27.0-34.0) pg MCHC 33.0 (33.0-35.0) g/dL Plt Count 194 (150-450) 10^3/uL Neut % (Auto) 56.1 (42.2-75.2) % Lymph % (Auto) 27.7 (20.5-50.1) % [place] % (Auto) 11.8 H (2-8) % Eos % (Auto) 4.1 H (1.0-3.0) % Baso % (Auto) 0.3 (0.0-1.0) % Sodium 138 (135-145) mmol/L Potassium 4.1 (3.6-5.0) mmol/L Chloride 106 (101-111) mmol/L Carbon Dioxide 27.0 (21.0-31.0) mmol/L Anion Gap 9.1 BUN 22 H (7-18) mg/dL Creatinine 1.4 H (0.6-1.3) mg/dL Est Cr Clr Drug Dosing 28.73 mL/min Estimated GFR (MDRD) 37 Glucose 84 (74-105) mg/dL Calcium 8.0 L (8.4-10.2) mg/dl Med Orders - Current: Current Medications Acetaminophen (Tylenol) 650 mg PO Q4HR PRN PRN Reason: Pain Acyclovir (Zovirax) 400 mg PO BID [facility] Last Admin: 06/08/17 22:36 Dose: 400 mg Albuterol (Proventil Hfa) 0 gm INH Q4H PRN PRN Reason: ASTHMA Atorvastatin Calcium (Lipitor) 10 mg PO BEDTIME [facility] Last Admin: 06/08/17 22:35 Dose: 10 mg Calcium Carbonate (Calcium Carbonate/Vitamin D 1250 Mg-200 Unit) 1 tab PO DAILY [facility] Cholecalciferol (Vitamin D3) 400 units PO WITHLUNCH [facility] Gabapentin (Neurontin) 300 mg PO BID [facility] Last Admin: 06/08/17 22:35 Dose: 300 mg Heparin Sodium (Porcine) (Heparin Sodium) 5,000 units SUBCUT Q8HR [facility] Last Admin: 06/09/17 06:55 Dose: 5,000 units Sodium Chloride (Normal Saline) 500 mls @ 100 mls/hr IV ASDIRECTED [facility] Last Admin: 06/08/17 14:42 Dose: 100 mls/hr Levothyroxine Sodium (Synthroid) 100 mcg PO ACBREAKFAST [facility] Last Admin: 06/09/17 06:56 Dose: 100 mcg Multivitamins (Thera) 1 each PO DAILY [facility] Non-Formulary Medication (Loteprednol Etabonate [Alrex]) 1 drop EYEBOTH DAILY [facility] Omeprazole (Omeprazole) 20 mg PO ACBREAKFAST [facility] Last Admin: 06/09/17 06:56 Dose: 20 mg Ondansetron HCl (Zofran Odt) 4 mg PO Q8H PRN PRN Reason: Nausea Sodium Chloride (Saline Flush) 10 ml FLUSH ASDIRECTED PRN PRN Reason: Keep Vein Open Timolol Maleate (Timoptic 0.5% Ophth Soln) 0 ml EYERT BID [facility] Last Admin: 06/08/17 22:36 Dose: 1 drop Zolpidem Tartrate (Ambien) 5 mg PO BEDTIME PRN PRN Reason: Sleep Discontinued Medications Sodium Chloride (Normal Saline) 1,000 mls @ 999 mls/hr IV .BOLUS ONE Stop: 06/08/17 12:29 Last Admin: 06/08/17 11:48 Dose: 999 mls/hr Non-Formulary Medication (Cyanocobalamin (Vitamin B-12) [Vitamin B-12]) 5,000 mcg SL DAILY [facility] - Exam General: Reports: Alert, Oriented Neck: Reports: Supple Lungs: Reports: Normal Respiratory Effort, Rhonchi (basilar ) Cardiovascular: Reports: Regular Rate, Regular Rhythm GI/Abdominal Exam: Normal Bowel Sounds, Soft, Non-Tender Extremities: Pedal Edema (trace b/l) Skin: Reports: Warm, Dry Neurological: Reports: No New Focal Deficit Psy/Mental Status: Reports: Alert, Normal Affect, Normal Mood *Q Meaningful Use (DIS) - VTE *Q VTE Criteria *Q: - Stroke *Q Stroke Criteria *Q: - AMI *Q AMI Criteria *Q:
[2017-06-09] MEDS: Gabapentin 300 MG Cap PO SCH (09:33)
[2017-06-09] MEDS: Acyclovir 200 MG Cap PO SCH (09:33)
[2017-06-09] MEDS: Timolol Maleate 0.5% Ophth Soln 5 ML Bottle EYERT SCH (09:36)
[2017-06-09] MEDS ORDERED: Cholecalciferol (Vitamin D3) 400 Unit Tab PO SCH (12:00)
--- NOTE | 2017-06-09 16:24 | EKG ---
06/08/2017 - ABEBA ESTRELLA - FINDINGS: EKG, per my reading, shows sinus rhythm with SC interval of 252 and heart rate of 90s. [facility] /[id number]
== END 2017-06-09 10:55 | disposition home or self-care (01) ==
LOC: DL.ED 11:04 → UNDOADMOB 13:15 → DL.MS 13:15 → INTOOBSV 13:15 → DL.ED 13:20 → DL.MS 14:05
PROVIDERS: ADMIT Internal Medicine; ATTEND Internal Medicine
DX: I95.9 Hypotension, unspecified (principal); N17.9 Acute kidney failure, unspecified; C90.00 Multiple myeloma not having achieved remission; E86.0 Dehydration; E78.00 Pure hypercholesterolemia, unspecified; J45.909 Unspecified asthma, uncomplicated; R91.1 Solitary pulmonary nodule; K21.9 Gastro-esophageal reflux disease without esophagitis; K59.09 Other constipation; M19.90 Unspecified osteoarthritis, unspecified site; M81.0 Age-related osteoporosis without current pathological fracture; F41.9 Anxiety disorder, unspecified; E03.9 Hypothyroidism, unspecified; E53.8 Deficiency of other specified B group vitamins; Z79.899 Other long term (current) drug therapy; Z91.048 Other nonmedicinal substance allergy status; Z88.8 Allergy status to other drugs, medicaments and biological substances; Z91.041 Radiographic dye allergy status; Z86.010 Personal history of colon polyps
CPT/HCPCS: 36415; 80048; 80053; 81001; 82272; 84484; 85025; 93005; 93010; 96360; 96361; 99283; 99285; A9270; J1644; J7030; J7040; 96372; G0378

== ENCOUNTER 2017-06-23 13:07 | Emergency (ER) | payer MEDICARE, BC ==
[2017-06-23 13:28] VITALS: BP 96/47
--- NOTE | 2017-06-23 14:00 | EDM.PDOC ---
ED HPI GENERAL MEDICAL PROBLEM - General Chief Complaint: General Stated Complaint: BLOOD PRESSURE LOW PASSED OUT HURT LEG Time Seen by Provider: 06/23/17 13:45 Source of Information: Reports: Patient, Old Records, RN, RN Notes Reviewed History Limitations: Reports: No Limitations - History of Present Illness INITIAL COMMENTS - FREE TEXT/NARRATIVE: Leisa is a 71 yo female who presents with her after a syncopal episode this am around 1030 this am. She reports that she in the kitchen, became dizzy, falling to the floor. She denies hitting her head. Denies LOC or neck pain. She does relate pain to her left ankle after falling. Difficulty putting weight on her ankle since the injury. She was recently discharged from the hospital two weeks ago for a similar episode. She recently received chemo pills on Wednesday. She denies nausea, vomiting, diarrhea, constipation, or abd pain. She reports up until this am she was feeling well. Denies fevers/chills. Onset: Today Onset Time: 10:30 Location: Reports: Lower Extremity, Left Quality: Reports: Ache Severity: Mild Improves with: Reports: Rest Worsens with: Reports: Movement Associated Symptoms: Reports: Syncope Left Ankle Pain Score (Numeric/FACES): 4 - Related Data Allergies Allergy/AdvReac Type Severity Reaction Status Date / Time adhesive tape Allergy Rash Verified 06/08/17 14:04 benzalkonium chloride Allergy Rash Verified 06/08/17 14:04 [From Neosporin Nickolas To Go] Iodinated Contrast- Oral and Allergy Hives Verified 06/08/17 14:04 IV Dye pramoxine HCl Allergy Rash Verified 06/08/17 14:04 [From Neosporin Nickolas To Go] Home Meds: Home Meds Gabapentin [Neurontin] 300 mg PO TID 04/15/15 [History] Multivitamin [Multiple Vitamins] 1 tab PO DAILY 04/15/15 [History] Timolol [Betimol 0.5% Ophth Soln] 1 drop EYERT BID 04/15/15 [History] atorvaSTATin [Lipitor] 10 mg PO BEDTIME 04/15/15 [History] Cholecalciferol (Vitamin D3) [Vitamin D3] 400 units PO DAILY 04/16/15 [History] Calcium Carbonate/Vitamin D3 [Calcium 500-Vit D3 400 Tablet] 1 tab PO ACLUNCH 07 /28/16 [History] Fluocinonide 1 applic PO BID PRN 10/24/15 [History] Levothyroxine [Synthroid] 100 mcg PO ACBREAKFAST 10/24/15 [History] Acetaminophen [Tylenol Arthritis] 650 mg PO Q4HR PRN 08/10/16 [History] Loteprednol Etabonate [Alrex] 1 drop EYEBOTH DAILY PRN 08/11/16 [History] Albuterol [Ventolin HFA] 2 puff INH Q4H PRN 11/23/16 [History] Ondansetron [Zofran] 1 tab PO Q8H PRN 11/23/16 [History] Zoledronic Acid in Water [Reclast] 1 injection IM .YEARLY 11/23/16 [History] Acyclovir [Zovirax] 400 mg PO BID 06/08/17 [History] Pantoprazole Sodium [Protonix] 40 mg PO DAILY 06/08/17 [History] Past Medical History HEENT History: Reports: Cataract, Glaucoma, Other (See Below) Other HEENT History: dry eye disease, Lichen Planus Cardiovascular History: Reports: Arrhythmia, High Cholesterol Respiratory History: Reports: Asthma, Bronchitis, Recurrent, Other (See Below) Other Respiratory History: LUNG NODULES Gastrointestinal History: Reports: Cholelithiasis, Chronic Constipation, Colon Polyp, Diverticulosis, GERD Genitourinary History: Reports: Other (See Below) Other Genitourinary History: kidney disease-amyloidosis 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 HX OF RIGHT HIP FRACTURE Neurological History: Reports: Migraines, Other (See Below) Other Neuro History: restless legs Psychiatric History: Reports: Anxiety Endocrine/Metabolic History: Reports: Hypothyroidism, Osteoporosis Hematologic History: Reports: B12 Deficiency Immunologic History: Reports: None Oncologic (Cancer) History: Reports: Breast Dermatologic History: Reports: None - Infectious Disease History Infectious Disease History: Reports: Chicken Pox, Measles, Mumps, Pertussis ( Whooping Cough) - Past Surgical History Head Surgeries/Procedures: Reports: None HEENT Surgical History: Reports: Cataract Surgery, Laser Surgery Cardiovascular Surgical History: Reports: None Respiratory Surgical History: Reports: None GI Surgical History: Reports: Colonoscopy, EGD, Polypectomy Female Surgical History: Reports: Mastectomy Other Female Surgeries/Procedures: LEFT SIDED MASTECTOMY Endocrine Surgical History: Reports: None Neurological Surgical History: Reports: None Musculoskeletal Surgical History: Reports: Other (See Below) Other Musculoskeletal Surgeries/Procedures:: Right hip fracture with repair, nail placed. left great screws placed with fusion, pin in right foot above right great toe for bunyon. right hand two knuckles replaced. Oncologic Surgical History: Reports: Mastectomy, Other (See Below) Other Oncologic Surgeries/Procedures: Left breast mastectomy Dermatological Surgical History: Reports: Skin Biopsy Social & Family History - Family History Family Medical History: Noncontributory - Tobacco Use Smoking Status *Q: Never Smoker Years of Tobacco use: 25 Used Tobacco, but Quit: Yes Month/Year Tobacco Last Used: 03/29/1988 Second Hand Smoke Exposure: No - Caffeine Use Caffeine Use: Reports: None Other Caffeine Use: 1 CUP OF TEA OR COFFEE, OCCASIONALLY - Recreational Drug Use Recreational Drug Use: No Drug Use in Last 12 Months: No ED ROS GENERAL - Review of Systems Review Of Systems: ROS reveals no pertinent complaints other than HPI. ED EXAM, GENERAL - Physical Exam Exam: See Below Exam Limited By: No Limitations General Appearance: Alert, WD/WN, No Apparent Distress Eye Exam: Bilateral Eye: PERRL Ears: Normal External Exam, Normal Canal, Hearing Grossly Normal, Normal TMs Ear Exam: Bilateral Ear: Auricle Normal, Canal Normal, TM normal Nose: Normal Inspection, Normal Mucosa, No Blood Throat/Mouth: Normal Inspection, Normal Lips, Normal Teeth, Normal Gums, Normal Oropharynx, Normal Voice, No Airway Compromise Head: Atraumatic, Normocephalic Neck: Normal Inspection, Supple, Non-Tender, Full Range of Motion Respiratory/Chest: No Respiratory Distress, Lungs Clear, Normal Breath Sounds, No Accessory Muscle Use, Chest Non-Tender Cardiovascular: Normal Peripheral Pulses, Regular Rate, Rhythm, No Edema, No Gallop, No JVD, No Murmur, No Rub GI/Abdominal: Normal Bowel Sounds, Soft, Non-Tender, No Organomegaly, No Distention, No Abnormal Bruit, No Mass (Female) Exam: Deferred Rectal (Female) Exam: Deferred Back Exam: Normal Inspection, Full Range of Motion, NT Extremities: Normal Range of Motion, Normal Capillary Refill, Leg Pain (Pain to left ankle post fall. Ankle is swollen. No redness or ecchymosis noted. Pedal and posterior pulses strong. Capillary refill less than 2 seconds. Sensation intact. ) Neurological: Alert, Oriented, CN II-XII Intact, Normal Cognition, Normal Gait, Normal Reflexes, No Motor/Sensory Deficits Psychiatric: Normal Affect, Normal Mood Skin Exam: Warm, Dry, Intact, Normal Color, No Rash Lymphatic: No Adenopathy EKG INTERPRETATION EKG Date: 06/23/17 Time: 13:40 Rhythm: Other (Sinus rhythm first degree block) Comparison: No Change Course - Vital Signs Last Recorded V/S: Last Vital Signs Temp 98.8 F 06/23/17 13:27 Pulse 92 06/23/17 13:27 Resp 16 06/23/17 13:27 BP 96/47 L 06/23/17 13:27 Pulse Ox 99 06/23/17 13:27 Orthostatic Blood Pressure [ 72/43 Standing] Orthostatic Blood Pressure [ 95/61 Sitting] Orthostatic Blood Pressure [ 105/35 Supine] - Orders/Labs/Meds Orders: Active Orders 24 hr Category Date Time Status EKG Documentation Completion [RC] URGENT Care 06/23/17 13:20 Active UA W/MICROSCOPIC [URIN] Stat Lab 06/23/17 15:09 Ordered DME for Discharge [COMM] Urgent Oth 06/23/17 15:38 Ordered Labs: Laboratory Tests 06/23/17 06/23/17 06/23/17 Range/Units 13:28 13:28 15:09 WBC 5.0 (5.0-10.0) 10^3/uL RBC 3.66 L (4.2-5.4) 10^6/uL Hgb 11.2 L (12.0-16.0) g/dL Hct 33.4 L (37.0-47.0) % MCV 91.3 (80-100) fL MCH 30.6 (27.0-34.0) pg MCHC 33.5 (33.0-35.0) g/dL Plt Count 240 (150-450) 10^3/uL Neut % (Auto) 75.8 H (42.2-75.2) % Lymph % (Auto) 9.4 L (20.5-50.1) % [place] % (Auto) 11.0 H (2-8) % Eos % (Auto) 3.2 H (1.0-3.0) % Baso % (Auto) 0.6 (0.0-1.0) % Sodium 136 (135-145) mmol/L Potassium 4.9 (3.6-5.0) mmol/L Chloride 103 (101-111) mmol/L Carbon Dioxide 28.0 (21.0-31.0) mmol/L Anion Gap 9.9 BUN 26 H (7-18) mg/dL Creatinine 1.8 H (0.6-1.3) mg/dL Est Cr Clr Drug Dosing 22.34 mL/min Estimated GFR (MDRD) 28 BUN/Creatinine Ratio 14.44 Glucose 99 (74-105) mg/dL Calcium 8.2 L (8.4-10.2) mg/dl Total Bilirubin 1.0 (0.2-1.0) mg/dL AST 21 (10-42) IU/L ALT 21 (10-60) IU/L Alkaline Phosphatase 53 (42-121) IU/L Troponin I 0.04 H* (0.00-0.02) ng/ml Total Protein 5.2 L (6.7-8.2) g/dl Albumin 2.6 L (3.2-5.5) g/dl Globulin 2.6 Albumin/Globulin Ratio 1.00 Urine Color Yellow (YELLOW) Urine Appearance Slightly cloudy (CLEAR) Urine pH 7.0 (5.0-9.0) Ur Specific [place] 1.015 (1.005-1.030) Urine Protein >=300 H (NEGATIVE) Urine Glucose (UA) Negative (NEGATIVE) Urine Ketones Negative (NEGATIVE) Urine Occult Blood Trace-intact H (NEGATIVE) Urine Nitrite Negative (NEGATIVE) Urine Bilirubin Negative (NEGATIVE) Urine Urobilinogen 0.2 (0.2-1.0) mg/dL Ur Leukocyte Esterase Negative (NEGATIVE) Urine RBC 0-5 /HPF Urine WBC 0-5 (0-5/HPF) /HPF Ur Epithelial Cells Few /HPF Urine Bacteria Rare (0-FEW/HPF) /HPF Urine Mucus Rare /LPF Meds: Medications Discontinued Medications Generic Name Dose Route Start Last Admin Trade Name Freq PRN Reason Stop Dose Admin Sodium Chloride 1,000 mls @ 999 mls/hr 06/23/17 14:08 06/23/17 14:38 Normal Saline IV 06/23/17 15:08 999 mls/hr .BOLUS ONE Administration Departure - Departure Time of Disposition: 15:50 Disposition: Home, Self-Care 01 Condition: Good Clinical Impression: Dehydration Syncope Qualifiers: Syncope type: unspecified Qualified Code(s): R55 - Syncope and collapse - Discharge Information Referrals: Virgen Rosales PA [Primary Care Provider] - Forms: ED Department Discharge Care Plan Goals: Walking cast for support to manage the chip fracture in your ankle. Elevate, Ice, tylenol as needed for pain. Follow-up with your primary care provider early next week. Drink plenty of fluids. Return if you have worsening symptoms or other concerns
[2017-06-23] MEDS ORDERED: Sodium Chloride 0.9% 1,000 ML IV ONE (14:08)
--- NOTE | 2017-06-23 14:23 | CR ---
CLINICAL HISTORY: 71-year-old female injured left ankle in a fall. INTERPRETATION: Three views left ankle confirm asymmetric pronounced soft tissue swelling over the la teral malleolus and apparent subtle nondisplaced intraosseous bony avulsion fracture from the medial cortex of the distal left fibula. No fractures body of the fibula. No fracture or tibiotalar dislocation adjacent tibia. No arthritic degenerative changes mortise joint . Tiny bone spurs os calcis.
== END 2017-06-23 16:12 | disposition home or self-care (01) ==
LOC: DL.ED 13:07
DX: R55 Syncope and collapse (principal); E86.0 Dehydration; J45.909 Unspecified asthma, uncomplicated; E78.00 Pure hypercholesterolemia, unspecified; E03.9 Hypothyroidism, unspecified; F41.9 Anxiety disorder, unspecified; Z91.048 Other nonmedicinal substance allergy status; Z88.8 Allergy status to other drugs, medicaments and biological substances; Z79.899 Other long term (current) drug therapy; Z87.891 Personal history of nicotine dependence
CPT/HCPCS: 36415; 73610; 80053; 81001; 84484; 85025; 93005; 93010; 96360; 99284; J7030

== ENCOUNTER 2017-07-08 08:54 | Inpatient (IN) | payer MEDICARE, BC ==
[2017-07-08] MEDS ORDERED: Sodium Chloride 0.9% 10 ML Syringe FLUSH PRN (09:06)
--- NOTE | 2017-07-08 09:19 | EDM.PDOC ---
ED HPI GENERAL MEDICAL PROBLEM - General Source of Information: Reports: Patient, EMS, Family, Old Records, RN History Limitations: Reports: No Limitations - History of Present Illness Onset: Sudden, Other (Hx of AM syncope ) Onset Date: 07/08/17 Onset Time: 07:00 Duration: Minutes:, Getting Worse (Remained unconscious for 5 minutes ) Location: Reports: Head, Generalized Quality: Reports: Same as Previous Episode Improves with: Reports: Eating, Rest, Other (Fluid bolus ) Worsens with: Reports: Movement Context: Reports: Activity (Passing out after walking and bowel movements ) Associated Symptoms: Reports: Loss of Appetite, Nausea/Vomiting, Syncope, Weakness. Denies: Chest Pain, Cough, Fever/Chills, Headaches, Shortness of Breath Treatments LIEUTENANT/DEPUTY: Reports: IV/IO - General Chief Complaint: Syncope Stated Complaint: BY AMBULANCE Time Seen by Provider: 07/08/17 09:58 - History of Present Illness INITIAL COMMENTS - FREE TEXT/NARRATIVE: Patient presents to ED by EMS with report the patient had syncopal episode immediately after a bowel movement. Report per patient and that Leisa has passed out twice this morning, at 0500 and 0700. The second syncopal episode was after standing up from a bowel movement. Patient remained unconscious for 5 minutes, was not confused and did not lose control of bladder when she returned to consciousness. Patient was seen by PCP 4 days ago and given 1000 mL bolus in clinic for hypotension. She was to return to clinic today for BP check. Patient has presented to ED with syncope on 05/30/17, 06/09/17 and 06/23/17. ROS negative for blood in stool or urine, fever, abdominal pain, or chest pain. ROS positive for decreased appetite, light headedness, and nausea. PMH positive for Multiple Myeloma treated with CyBorD (Cyclophosphamide, bortezomib, dexamethasone), treatment ended 4 weeks ago. Amyloidosis affecting the kidneys, patient has appointment at [facility] next week. (Lisa Malcolm) - Related Data Allergies Allergy/AdvReac Type Severity Reaction Status Date / Time adhesive tape Allergy Rash Verified 07/08/17 09:06 benzalkonium chloride Allergy Rash Verified 07/08/17 09:06 [From Neosporin Nickolas To Go] Iodinated Contrast- Oral and Allergy Hives Verified 07/08/17 09:06 IV Dye pramoxine HCl Allergy Rash Verified 07/08/17 09:06 [From Neosporin Nickolas To Go] Home Meds: Home Meds Gabapentin [Neurontin] 600 mg PO TID 04/15/15 [History] Multivitamin [Multiple Vitamins] 1 tab PO DAILY 04/15/15 [History] Timolol [Betimol 0.5% Ophth Soln] 1 drop EYERT BID 04/15/15 [History] atorvaSTATin [Lipitor] 10 mg PO BEDTIME 04/15/15 [History] Cholecalciferol (Vitamin D3) [Vitamin D3] 400 units PO DAILY 04/16/15 [History] Calcium Carbonate/Vitamin D3 [Calcium 500-Vit D3 400 Tablet] 1 tab PO ACLUNCH [History] Fluocinonide 1 applic PO BID PRN 10/24/15 [History] Levothyroxine [Synthroid] 100 mcg PO ACBREAKFAST 10/24/15 [History] Acetaminophen [Tylenol Arthritis] 650 mg PO Q4HR PRN 08/10/16 [History] Loteprednol Etabonate [Alrex] 1 drop EYEBOTH DAILY PRN 08/11/16 [History] Albuterol [Ventolin HFA] 2 puff INH Q4H PRN 11/23/16 [History] Ondansetron [Zofran] 1 tab PO Q8H PRN 11/23/16 [History] Zoledronic Acid in Water [Reclast] 1 injection IM .YEARLY 11/23/16 [History] Pantoprazole Sodium [Protonix] 40 mg PO DAILY 06/08/17 [History] Midodrine 10 mg PO DAILY 07/08/17 [History] Prochlorperazine Maleate [Compazine] 10 mg PO Q6HR PRN 07/08/17 [History] Past Medical History HEENT History: Reports: Cataract, Glaucoma, Other (See Below) Other HEENT History: dry eye disease, Lichen Planus Cardiovascular History: Reports: Arrhythmia, High Cholesterol Respiratory History: Reports: Asthma, Bronchitis, Recurrent, Other (See Below) Other Respiratory History: LUNG NODULES Gastrointestinal History: Reports: Cholelithiasis, Chronic Constipation, Colon Polyp, Diverticulosis, GERD Genitourinary History: Reports: Other (See Below) Other Genitourinary History: kidney disease-amyloidosis [employer] 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 HX OF RIGHT HIP FRACTURE Neurological History: Reports: Migraines, Other (See Below) Other Neuro History: restless legs Psychiatric History: Reports: Anxiety Endocrine/Metabolic History: Reports: Hypothyroidism, Osteoporosis Hematologic History: Reports: B12 Deficiency Immunologic History: Reports: None Oncologic (Cancer) History: Reports: Breast Dermatologic History: Reports: None - Infectious Disease History Infectious Disease History: Reports: Chicken Pox, Measles, Mumps, Pertussis ( Whooping Cough) - Past Surgical History Head Surgeries/Procedures: Reports: None HEENT Surgical History: Reports: Cataract Surgery, Laser Surgery Cardiovascular Surgical History: Reports: None Respiratory Surgical History: Reports: None GI Surgical History: Reports: Colonoscopy, EGD, Polypectomy Female Surgical History: Reports: Mastectomy Other Female Surgeries/Procedures: LEFT SIDED MASTECTOMY Endocrine Surgical History: Reports: None Neurological Surgical History: Reports: None Musculoskeletal Surgical History: Reports: Other (See Below) Other Musculoskeletal Surgeries/Procedures:: Right hip fracture with repair, nail placed. left great screws placed with fusion, pin in right foot above right great toe for bunyon. right hand two knuckles replaced. Oncologic Surgical History: Reports: Mastectomy, Other (See Below) Other Oncologic Surgeries/Procedures: Left breast mastectomy Dermatological Surgical History: Reports: Skin Biopsy Social & Family History - Family History Family Medical History: Noncontributory - Tobacco Use Smoking Status *Q: Never Smoker Years of Tobacco use: 25 Used Tobacco, but Quit: Yes Month/Year Tobacco Last Used: 03/29/1988 Second Hand Smoke Exposure: No - Caffeine Use Caffeine Use: Reports: None Other Caffeine Use: 1 CUP OF TEA OR COFFEE, OCCASIONALLY - Recreational Drug Use Recreational Drug Use: No Drug Use in Last 12 Months: No ED ROS GENERAL - Review of Systems Review Of Systems: See Below Constitutional: Reports: Weakness, Fatigue, Decreased Appetite, Weight Loss. Denies: Fever, Chills HEENT: Reports: No Symptoms. Denies: Sinus Problem, Throat Pain, Vertigo Respiratory: Reports: No Symptoms. Denies: Shortness of Breath, Cough Cardiovascular: Reports: Blood Pressure Problem, Lightheadedness, Syncope. Denies: Chest Pain, Edema Endocrine: Reports: Fatigue. Denies: Polyuria GI/Abdominal: Reports: Decreased Appetite. Denies: Abdominal Pain, Bloody Stool : Denies: Hematuria Musculoskeletal: Reports: No Symptoms (Right foot in walking boot ) Skin: Reports: No Symptoms, Pallor Neurological: Reports: Dizziness (prior to syncopal episodes ), Syncope, Weakness. Denies: Confusion, Difficulty Walking Psychiatric: Reports: No Symptoms. Denies: Confusion - Physical Exam Exam: See Below Exam Limited By: No Limitations General Appearance: Alert, Cachetic Eye Exam: Bilateral Eye: Normal Fundi, PERRL Ears: Normal External Exam Nose: Normal Inspection, No Blood Throat/Mouth: Normal Inspection, Normal Teeth, Normal Oropharynx, Normal Voice, No Airway Compromise Head Exam: Atraumatic, Normocephalic. No: Scalp Swelling, Scalp Tenderness, Facial Abrasions, Facial Ecchymosis Neck: Normal Inspection, Supple, Non-Tender Respiratory/Chest: No Respiratory Distress, Lungs Clear, Normal Breath Sounds, No Accessory Muscle Use, Chest Non-Tender. No: Crackles, Rhonchi Cardiovascular: Normal Peripheral Pulses, Systolic Murmur (Grade 2/6 over Mitral valve ) GI/Abdominal: Normal Bowel Sounds, Non-Tender, No Distention Neuro Exam (Abbreviated): Alert, Oriented, Normal Cognition. No: Confused Extremities: Normal Capillary Refill Psychiatric: Normal Affect, Normal Mood Skin Exam: Dry, Cool EKG INTERPRETATION EKG Date: 07/08/17 Time: 09:22 Rhythm: Other (Sinus Tachycardia) Rate (Beats/Min): 100 [place]: Normal P-Wave: Present QRS: Normal ST-T: Normal QT: Normal ME/PQ Interval: Increased at 216 (nml < 200) Comparison: No Change EKG Interpretation Comments: Sinus tachycardia 1st degree AV block Incomplete RBBB Compared to 06/23/17: Old Q waves (Lisa Malcolm) Course - Vital Signs Last Recorded V/S: Last Vital Signs Temp 36.6 C 07/08/17 08:59 Pulse 102 H 07/08/17 08:59 Resp 16 07/08/17 08:59 BP 107/63 07/08/17 08:59 Pulse Ox 95 07/08/17 08:59 Orthostatic Blood Pressure [ 109/62 Supine] Orthostatic Blood Pressure [ 70/45 Standing] Orthostatic Blood Pressure [ 104/53 Sitting] - Orders/Labs/Meds Orders: Active Orders 24 hr Category Date Time Status EKG 12 Lead [EKG Documentation Completion] [RC] ROUTINE Care 07/08/17 09:03 Active Orthostatic Vital Signs [RC] ASDIRECTED Care 07/08/17 09:05 Active Peripheral IV Care [RC] . DIRECTED Care 07/08/17 09:07 Active UA W/MICROSCOPIC [URIN] Stat Lab 07/08/17 10:35 Ordered Sodium Chloride 0.9% [Normal Saline] 1,000 ml Med 07/08/17 10:00 Active IV ASDIRECTED Sodium Chloride 0.9% [Saline Flush] Med 07/08/17 09:06 Active 10 ml FLUSH ASDIRECTED PRN Peripheral IV Insertion Adult [OM.PC] Routine Oth 07/08/17 09:06 Ordered Medication Orders Sodium Chloride (Normal Saline) 1,000 mls @ 999 mls/hr IV ASDIRECTED OMID Sodium Chloride (Saline Flush) 10 ml FLUSH ASDIRECTED PRN PRN Reason: Keep Vein Open Labs: Laboratory Tests 07/08/17 07/08/17 07/08/17 Range/Units 09:45 09:45 10:35 WBC 7.0 (5.0-10.0) 10^3/uL RBC 4.15 L (4.2-5.4) 10^6/uL Hgb 12.6 (12.0-16.0) g/dL Hct 38.5 (37.0-47.0) % MCV 92.8 (80-100) fL MCH 30.4 (27.0-34.0) pg MCHC 32.7 L (33.0-35.0) g/dL Plt Count 316 D (150-450) 10^3/uL Neut % (Auto) 66.1 (42.2-75.2) % Lymph % (Auto) 20.1 L (20.5-50.1) % [place] % (Auto) 9.7 H (2-8) % Eos % (Auto) 3.4 H (1.0-3.0) % Baso % (Auto) 0.7 (0.0-1.0) % Sodium 138 (135-145) mmol/L Potassium 4.6 (3.6-5.0) mmol/L Chloride 105 (101-111) mmol/L Carbon Dioxide 27.0 (21.0-31.0) mmol/L Anion Gap 10.6 BUN 23 H (7-18) mg/dL Creatinine 1.3 (0.6-1.3) mg/dL Est Cr Clr Drug Dosing 30.94 mL/min Estimated GFR (MDRD) 40 BUN/Creatinine Ratio 17.69 Glucose 102 (74-105) mg/dL Calcium 8.3 L (8.4-10.2) mg/dl Total Bilirubin 0.8 (0.2-1.0) mg/dL AST 24 (10-42) IU/L ALT 16 (10-60) IU/L Alkaline Phosphatase 77 (42-121) IU/L Total Protein 5.2 L (6.7-8.2) g/dl Albumin 2.7 L (3.2-5.5) g/dl Globulin 2.5 Albumin/Globulin Ratio 1.08 Urine Color Yellow (YELLOW) Urine Appearance Clear (CLEAR) Urine pH 7.5 (5.0-9.0) Ur Specific [place] 1.025 (1.005-1.030) Urine Protein >=300 H (NEGATIVE) Urine Glucose (UA) Negative (NEGATIVE) Urine Ketones Negative (NEGATIVE) Urine Occult Blood Trace-intact H (NEGATIVE) Urine Nitrite Negative (NEGATIVE) Urine Bilirubin Negative (NEGATIVE) Urine Urobilinogen 0.2 (0.2-1.0) mg/dL Ur Leukocyte Esterase Negative (NEGATIVE) Urine RBC 0-5 /HPF Urine WBC 0-5 (0-5/HPF) /HPF Ur Epithelial Cells Few /HPF Urine Bacteria Not seen (0-FEW/HPF) /HPF Urine Mucus Few H /LPF Meds: Medications Generic Name Dose Route Start Last Admin Trade Name Freq PRN Reason Stop Dose Admin Sodium Chloride 1,000 mls @ 999 mls/hr 07/08/17 10:00 Normal Saline IV ASDIRECTED OMID Sodium Chloride 10 ml 07/08/17 09:06 Saline Flush FLUSH ASDIRECTED PRN Keep Vein Open - Re-Assessments/Exams Free Text/Narrative Re-Assessment/Exam: 07/08/17 11:22 Re-assessment after 1000mL NS bolus. Patient is sitting up at side of the bed and eating toast. She was able to provide a urine sample. Patient states she is feeling better. has concerns about Leisa being discharged today. On exam, her mood is more alert, less lethargic. Orthostatic blood pressure shows Orthostatic hypo-tension when she stands up. 104/53 (sitting) to 70/45 (standing) No other changes to prior physical exam findings 07/08/17 11:25 (Lisa Malcolm) Free Text/Narrative Re-Assessment/Exam: 07/08/17 11:28 Planning to admit to [facility] for dehydration and syncope. Paging Hospitalist. 07/08/17 11:[address] Davidson accepting admission for observation. (Lisa Malcolm) Departure - Departure Time of Disposition: 11:36 (Admitted to Dr. Davidson ) Condition: Fair - Departure Disposition: Admitted As Inpatient 65 Clinical Impression: Dehydration, Orthostatic hypotension Syncope Qualifiers: Syncope type: unspecified Qualified Code(s): R55 - Syncope and collapse - Discharge Information Referrals: Virgen Rosales PA [Primary Care Provider] - Forms: ED Department Discharge - Problem List & Annotations (1) Dehydration SNOMED Code(s): 70878021 Code(s): E86.0 - DEHYDRATION Status: Acute Current Visit: No (2) Orthostatic hypotension SNOMED Code(s): 82133674 Code(s): I95.1 - ORTHOSTATIC HYPOTENSION Status: Acute Current Visit: No (3) Syncope SNOMED Code(s): 748966539 Code(s): R55 - SYNCOPE AND COLLAPSE Status: Acute Current Visit: No Qualifiers: Syncope type: unspecified Qualified Code(s): R55 - Syncope and collapse (4) Hypotension SNOMED Code(s): 06794601 Code(s): I95.9 - HYPOTENSION, UNSPECIFIED Status: Acute Current Visit: No - Problem List Review Problem List Initiated/Reviewed/Updated: Yes
[2017-07-08] MEDS ORDERED: Sodium Chloride 0.9% 1,000 ML IV SCH (10:00)
[2017-07-08] MEDS ORDERED: Ondansetron 4 MG/2 ML SDV IVPUSH PRN (11:50)
[2017-07-08] MEDS ORDERED: Acetaminophen 325 MG Tab PO PRN (11:50)
[2017-07-08] MEDS ORDERED: Prochlorperazine 5 MG Tab PO PRN (12:41)
[2017-07-08] MEDS ORDERED: Ondansetron 4 MG Tab.DIS PO PRN (12:41)
[2017-07-08] MEDS ORDERED: LOTEPREDNOL ETABONATE EYEBOTH PRN (12:41)
[2017-07-08] MEDS ORDERED: Albuterol 6.7 GM Inhaler INH PRN (12:41)
[2017-07-08] MEDS ORDERED: Non-Formulary Medication 1 Each (Acetaminophen [Tylenol Arthritis] 650 MG) PO PRN (12:41)
--- NOTE | 2017-07-08 12:52 | PCM.HP ---
H&P History of Present Illness - General Date of Service: 07/08/17 Admit Problem/Dx: Admission Diagnosis/Problem Admission Diagnosis/Problem Syncope and collapse Source of Information: Patient, Family, Significant Other History Limitations: Reports: No Limitations - History of Present Illness Initial Comments - Free Text/Narative: 71 y.o.with PMH oflight chain (AL) amyloidosis. The amyloidosis is associated with nephrotic syndrome and peripheral neuropathy. Was on chemo in the past, however, this was stopped because of peripheral neuropathy. Her other comobidities include HTN, HLD, GERD, restless leg syndrome, CKD and Hypothyroidism. She presented to the ED with feeling light headed and having two episodes of syncope today. Patient ambulates with assistance from her and with a walker. She woke up this morning and went to the bathroom, after she attempted to leave the loo, she had an episode of syncope at 5am. Syncope was witnessed by , it was preceded by lightheadedness and lasted for a few minutes. There was no tonic- clonic contractions, no incontinence of urine or feces, no foaming at the mouth , no chest pain, no SOB, no palpitations, no nausea, no vomiting. No fever or chills. No head trauma. She usually has lightheadedness in the morning, but feels better after eating breakfast Has had several episodes of syncope in the past and has had work up for syncope. 2D echo was done three months ago which was normal. In the ED, she was orthostatic, IV fluids were continued and an admission for observation was recommended. Onset of Symptoms: Reports: Today, Sudden Symptom Onset Date: 07/08/17 Duration of Symptoms: Reports: Hour(s): Associated Symptoms: Reports: Syncope - Related Data Allergies/Adverse Reactions: Allergies Allergy/AdvReac Type Severity Reaction Status Date / Time Iodinated Contrast- Oral and Allergy Intermediate Hives Verified 07/08/17 12:34 IV Dye adhesive tape Allergy Mild Rash Verified 07/08/17 12:34 benzalkonium chloride Allergy Mild Rash Verified 07/08/17 12:34 [From Neosporin Nickolas To Go] pramoxine HCl Allergy Mild Rash Verified 07/08/17 12:34 [From Neosporin Nickolas To Go] Home Medications: Home Meds Gabapentin [Neurontin] 600 mg PO TID 04/15/15 [History] Multivitamin [Multiple Vitamins] 1 tab PO DAILY 04/15/15 [History] Timolol [Betimol 0.5% Ophth Soln] 1 drop EYERT BID 04/15/15 [History] atorvaSTATin [Lipitor] 10 mg PO BEDTIME 04/15/15 [History] Cholecalciferol (Vitamin D3) [Vitamin D3] 400 units PO DAILY 04/16/15 [History] Calcium Carbonate/Vitamin D3 [Calcium 500-Vit D3 400 Tablet] 1 tab PO ACLUNCH [History] Levothyroxine [Synthroid] 100 mcg PO ACBREAKFAST 10/24/15 [History] Acetaminophen [Tylenol Arthritis] 650 mg PO Q4HR PRN 08/10/16 [History] Loteprednol Etabonate [Alrex] 1 drop EYEBOTH DAILY PRN 08/11/16 [History] Albuterol [Ventolin HFA] 2 puff INH Q4H PRN 11/23/16 [History] Ondansetron [Zofran] 1 tab PO Q8H PRN 11/23/16 [History] Zoledronic Acid in Water [Reclast] 1 injection IM .YEARLY 11/23/16 [History] Pantoprazole Sodium [Protonix] 40 mg PO DAILY 06/08/17 [History] Midodrine 10 mg PO BID 07/08/17 [History] Prochlorperazine Maleate [Compazine] 10 mg PO Q6HR PRN 07/08/17 [History] Past Medical History HEENT History: Reports: Cataract, Glaucoma, Other (See Below) Other HEENT History: dry eye disease, Lichen Planus Cardiovascular History: Reports: Arrhythmia, High Cholesterol Respiratory History: Reports: Asthma, Bronchitis, Recurrent, Other (See Below) Other Respiratory History: LUNG NODULES Gastrointestinal History: Reports: Cholelithiasis, Chronic Constipation, Colon Polyp, Diverticulosis, GERD Genitourinary History: Reports: Other (See Below) Other Genitourinary History: kidney disease-amyloidosis 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 HX OF RIGHT HIP FRACTURE Neurological History: Reports: Migraines, Other (See Below) Other Neuro History: restless legs Psychiatric History: Reports: Anxiety Endocrine/Metabolic History: Reports: Hypothyroidism, Osteoporosis Hematologic History: Reports: B12 Deficiency Immunologic History: Reports: None Oncologic (Cancer) History: Reports: Breast Dermatologic History: Reports: None - Infectious Disease History Infectious Disease History: Reports: Chicken Pox, Measles, Mumps, Pertussis ( Whooping Cough) - Past Surgical History Head Surgeries/Procedures: Reports: None HEENT Surgical History: Reports: Cataract Surgery, Laser Surgery Cardiovascular Surgical History: Reports: None Respiratory Surgical History: Reports: None GI Surgical History: Reports: Colonoscopy, EGD, Polypectomy Female Surgical History: Reports: Mastectomy Other Female Surgeries/Procedures: LEFT SIDED MASTECTOMY Endocrine Surgical History: Reports: None Neurological Surgical History: Reports: None Musculoskeletal Surgical History: Reports: Other (See Below) Other Musculoskeletal Surgeries/Procedures:: Right hip fracture with repair, nail placed. left great screws placed with fusion, pin in right foot above right great toe for bunyon. right hand two knuckles replaced. Oncologic Surgical History: Reports: Mastectomy, Other (See Below) Other Oncologic Surgeries/Procedures: Left breast mastectomy Dermatological Surgical History: Reports: Skin Biopsy Social & Family History - Family History Family Medical History: Noncontributory - Tobacco Use Smoking Status *Q: Never Smoker Years of Tobacco use: 25 Used Tobacco, but Quit: Yes Month/Year Tobacco Last Used: 03/29/1988 Second Hand Smoke Exposure: No - Caffeine Use Caffeine Use: Reports: None Other Caffeine Use: 1 CUP OF TEA OR COFFEE, OCCASIONALLY - Recreational Drug Use Recreational Drug Use: No Drug Use in Last 12 Months: No H&P Review of Systems - Review of Systems: Review Of Systems: See Below HEENT: Reports: No Symptoms Pulmonary: Reports: No Symptoms Cardiovascular: Reports: No Symptoms Gastrointestinal: Reports: No Symptoms Genitourinary: Reports: No Symptoms Musculoskeletal: Reports: No Symptoms Exam - Exam Exam: See Below - Vital Signs Vital Signs: Last Vital Signs Temp 36.9 C 07/08/17 11:50 Pulse 101 H 07/08/17 11:50 Resp 20 07/08/17 11:50 BP 62/36 L 07/08/17 11:50 Pulse Ox 95 07/08/17 11:50 Orthostatic Blood Pressure [ 109/62 Supine] Orthostatic Blood Pressure [ 70/45 Standing] Orthostatic Blood Pressure [ 104/53 Sitting] Weight: 50.349 kg - Exam General: Alert, Oriented HEENT: Conjunctiva Clear Neck: Supple Lungs: Clear to Auscultation Cardiovascular: Regular Rate, Regular Rhythm GI/Abdominal Exam: Normal Bowel Sounds - Patient Data Lab Results Last 24 hrs: Laboratory Results - last 24 hr 07/08/17 07/08/17 07/08/17 Range/Units 09:45 09:45 10:35 WBC 7.0 (5.0-10.0) 10^3/uL RBC 4.15 L (4.2-5.4) 10^6/uL Hgb 12.6 (12.0-16.0) g/dL Hct 38.5 (37.0-47.0) % MCV 92.8 (80-100) fL MCH 30.4 (27.0-34.0) pg MCHC 32.7 L (33.0-35.0) g/dL Plt Count 316 D (150-450) 10^3/uL Neut % (Auto) 66.1 (42.2-75.2) % Lymph % (Auto) 20.1 L (20.5-50.1) % Power % (Auto) 9.7 H (2-8) % Eos % (Auto) 3.4 H (1.0-3.0) % Baso % (Auto) 0.7 (0.0-1.0) % Sodium 138 (135-145) mmol/L Potassium 4.6 (3.6-5.0) mmol/L Chloride 105 (101-111) mmol/L Carbon Dioxide 27.0 (21.0-31.0) mmol/L Anion Gap 10.6 BUN 23 H (7-18) mg/dL Creatinine 1.3 (0.6-1.3) mg/dL Est Cr Clr Drug Dosing 30.94 mL/min Estimated GFR (MDRD) 40 BUN/Creatinine Ratio 17.69 Glucose 102 (74-105) mg/dL Calcium 8.3 L (8.4-10.2) mg/dl Total Bilirubin 0.8 (0.2-1.0) mg/dL AST 24 (10-42) IU/L ALT 16 (10-60) IU/L Alkaline Phosphatase 77 (42-121) IU/L Total Protein 5.2 L (6.7-8.2) g/dl Albumin 2.7 L (3.2-5.5) g/dl Globulin 2.5 Albumin/Globulin Ratio 1.08 Urine Color Yellow (YELLOW) Urine Appearance Clear (CLEAR) Urine pH 7.5 (5.0-9.0) Ur Specific [place] 1.025 (1.005-1.030) Urine Protein >=300 H (NEGATIVE) Urine Glucose (UA) Negative (NEGATIVE) Urine Ketones Negative (NEGATIVE) Urine Occult Blood Trace-intact H (NEGATIVE) Urine Nitrite Negative (NEGATIVE) Urine Bilirubin Negative (NEGATIVE) Urine Urobilinogen 0.2 (0.2-1.0) mg/dL Ur Leukocyte Esterase Negative (NEGATIVE) Urine RBC 0-5 /HPF Urine WBC 0-5 (0-5/HPF) /HPF Ur Epithelial Cells Few /HPF Urine Bacteria Not seen (0-FEW/HPF) /HPF Urine Mucus Few H /LPF Result Diagrams: 07/08/17 09:45 07/08/17 09:45 EKG INTERPRETATION Rhythm: NSR Problem List Initiated/Reviewed/Updated: Yes Orders Last 24hrs: Active Orders 24 hr Category Date Time Status Patient Status [ADT] Routine ADT 07/08/17 11:50 Ordered Ambulate [RC] ASDIRECTED Care 07/08/17 11:50 Ordered Cardiac Monitoring [RC] CONTINUOUS Care 07/08/17 12:12 Ordered Intake and Output [RC] QSHIFT Care 07/08/17 12:12 Ordered Orthostatic Vital Signs [RC] ASDIRECTED Care 07/08/17 09:05 Active Oxygen Therapy [RC] PRN Care 07/08/17 11:50 Ordered Up ad Zahraa [RC] ASDIRECTED Care 07/08/17 11:50 Ordered Up to Chair [RC] ASDIRECTED Care 07/08/17 11:50 Ordered VTE/DVT Education [RC] PER UNIT ROUTINE Care 07/08/17 11:50 Ordered Vital Signs [RC] Q4H Care 07/08/17 11:50 Ordered OT Evaluation and Treatment [CONS] Routine Cons 07/08/17 11:50 Ordered PT Evaluation and Treatment [CONS] Routine Cons 07/08/17 11:50 Ordered BASIC METABOLIC PANEL,BMP [CHEM] AM Lab 07/09/17 05:11 Ordered CBC WITH AUTO DIFF [HEME] AM Lab 07/09/17 05:11 Ordered UA W/MICROSCOPIC [URIN] Stat Lab 07/08/17 10:35 Ordered Acetaminophen [Tylenol Arthritis] Med 07/08/17 12:41 Ordered 650 mg PO Q4HR PRN Acetaminophen [Tylenol] Med 07/08/17 11:50 Ordered 650 mg PO Q4H PRN Albuterol [Proventil HFA] Med 07/08/17 12:41 Ordered 2 puff INH Q4H PRN Calcium Carbonate/Vitamin D3 [Calcium 500-Vit D3 400 Med 07/09/17 11:00 Ordered Tablet] 1 tab PO ACLUNCH Cholecalciferol (Vitamin D3) [Vitamin D3] Med 07/09/17 09:00 Ordered 400 units PO DAILY Gabapentin [Neurontin] Med 07/08/17 14:00 Ordered 600 mg PO TID Levothyroxine [Synthroid] Med 07/08/17 12:41 Ordered 100 mcg PO ACBREAKFAST Loteprednol Etabonate [Alrex] Med 07/08/17 12:41 Ordered 1 drop EYEBOTH DAILY PRN Midodrine [Midodrine] Med 07/08/17 14:00 Ordered 10 mg PO TID Multivitamin [Multiple Vitamins] Med 07/08/17 12:45 Ordered 1 tab PO DAILY Ondansetron Med 07/08/17 12:41 Ordered 1 tab PO Q8H PRN Ondansetron [Zofran] Med 07/08/17 11:50 Ordered 4 mg IVPUSH Q4H PRN Pantoprazole [ProTONIX] Med 07/08/17 12:45 Ordered 40 mg PO DAILY Prochlorperazine Maleate [Compazine] Med 07/08/17 12:41 Ordered 10 mg PO Q6HR PRN Sodium Chloride 0.9% @ 125 MLS/HR (1000ml) Med 07/08/17 12:00 Ordered Sodium Chloride 0.9% [Normal Saline] 1,000 ml IV ASDIRECTED Sodium Chloride 0.9% [Normal Saline] 1,000 ml Med 07/08/17 10:00 Active IV ASDIRECTED Sodium Chloride 0.9% [Saline Flush] Med 07/08/17 09:06 Active 10 ml FLUSH ASDIRECTED PRN Timolol [Betimol 0.5% Ophth Soln] Med 07/08/17 21:00 Ordered 1 drop EYERT BID atorvaSTATin [Lipitor] Med 07/08/17 21:00 Ordered 10 mg PO BEDTIME Peripheral IV Insertion Adult [OM.PC] Routine Oth 07/08/17 09:06 Ordered Resuscitation Status Routine Resus Stat 07/08/17 12:40 Ordered Medication Orders Acetaminophen (Tylenol) 650 mg PO Q4H PRN PRN Reason: Pain (Mild 1-3)/fever Sodium Chloride (Normal Saline) 1,000 mls @ 999 mls/hr IV ASDIRECTED OMID Sodium Chloride (Normal Saline) 1,000 mls @ 125 mls/hr IV ASDIRECTED OMID Ondansetron HCl (Zofran) 4 mg IVPUSH Q4H PRN PRN Reason: Nausea/Vomiting Sodium Chloride (Saline Flush) 10 ml FLUSH ASDIRECTED PRN PRN Reason: Keep Vein Open Assessment/Plan Comment:: 71 yo F with PMH of L chain AL amyloidosis with complications of peripheral neuropathy and nephrotic syndrome p/w syncope 1. Syncope likely 2/2 orthostatic hypotension from autonomic neuropathy and nephrotic syndrome admit to observation IVF NSS @ 125cc/hr for 24 hours Increase midodrine to 10 mg tid monitor on Tele has had recent 2D echo, unlikely cardiac etiology follow up with nephrology clinic 2. hx of glaucoma continue home meds 3. Hx of GERD continue protonix 4. Diet Regular diet 5. Code status Full code 6. DVT ppx SC heparin
[2017-07-08] MEDS: Sodium Chloride 0.9% 1,000 ML IV SCH ×2 (13:08→20:49)
[2017-07-08] MEDS: Levothyroxine 100 MCG Tab PO SCH (13:34)
[2017-07-08] MEDS: Pantoprazole 40 MG Tab.CR PO SCH (13:34)
[2017-07-08] MEDS: Gabapentin 300 MG Cap PO SCH ×2 (14:45→20:53)
[2017-07-08] MEDS: Multivitamins,Therapeutic Tab PO SCH (14:45)
[2017-07-08] MEDS: Midodrine 2.5 MG Tab PO SCH ×2 (14:45→20:51)
[2017-07-08] MEDS: Enoxaparin 30 MG/0.3 ML Syringe SUBCUT SCH (14:46)
[2017-07-08] MEDS: atorvaSTATin 10 MG Tab PO SCH (20:53)
[2017-07-08] MEDS: Timolol Maleate 0.5% Ophth Soln 5 ML Bottle EYERT SCH (20:53)
[2017-07-09] MEDS: Sodium Chloride 0.9% 1,000 ML IV SCH ×2 (04:39→12:49)
[2017-07-09] MEDS: Levothyroxine 100 MCG Tab PO SCH (05:28)
[2017-07-09] MEDS: Pantoprazole 40 MG Tab.CR PO SCH (05:28)
[2017-07-09] MEDS: Cholecalciferol (Vitamin D3) 400 Unit Tab PO SCH (08:34)
[2017-07-09] MEDS: Multivitamins,Therapeutic Tab PO SCH (08:34)
[2017-07-09] MEDS: Midodrine 2.5 MG Tab PO SCH ×3 (08:34→20:40)
[2017-07-09] MEDS: Enoxaparin 30 MG/0.3 ML Syringe SUBCUT SCH (08:34)
[2017-07-09] MEDS: Gabapentin 300 MG Cap PO SCH ×3 (08:34→20:39)
[2017-07-09] MEDS: Timolol Maleate 0.5% Ophth Soln 5 ML Bottle EYERT SCH ×2 (08:36→20:38)
[2017-07-09] MEDS: Calcium Carbonate/Vitamin D3 1250 MG-200 Unit Tab PO SCH (11:32)
--- NOTE | 2017-07-09 11:39 | PN ---
DATE: 07/09/2017 SUBJECTIVE: The patient this morning is doing fairly well. She denies any significant ongoing complaints. Denies any syncope, lightheadedness, chest pain, shortness of breath, abdominal pain, or any other significant complaints. LABORATORY DATA: Lab workup this morning, WBC 6.4, hemoglobin is 11.2, hematocrit is 34.5, platelet is 321. Basic metabolic panel, BUN is 20, the rest of the panel is unremarkable. OBJECTIVE: Vital Signs: Blood pressure is 106/47, pulse of 88, respiration is 16. Heart: Regular rate and rhythm. Normal S1 and S2. No gallops. No rubs. Lungs: Equal bilaterally. No crackles. No wheezing. Abdomen: Soft and nontender. Extremities: Remarkable for the immobilizer in the left foot. MEDICATIONS: Reviewed. PLAN: We will continue with her midodrine and the rest of her management, and we will continue with PT and OT, and if she continues to do well, we will discharge the patient in a.m. We will also increase her activity today. [facility] /[id number]
[2017-07-09] MEDS: atorvaSTATin 10 MG Tab PO SCH (20:39)
[2017-07-10] MEDS: Levothyroxine 100 MCG Tab PO SCH (05:39)
[2017-07-10] MEDS: Pantoprazole 40 MG Tab.CR PO SCH (05:39)
[2017-07-10] MEDS ORDERED: Sodium Chloride 0.9% 1,000 ML IV SCH (08:15)
--- NOTE | 2017-07-10 08:42 | PN ---
DATE: 07/10/2017 SUBJECTIVE: The patient did very well yesterday, and she has been ambulating, and also last night did well, but this morning had an episode again of syncope and was noted to have orthostatic vital sign changes. Telemetry though remained in sinus rhythm with no significant arrhythmias noted. The patient denies any injury from the recent syncope. Denies any headache or chest pain associated with the syncope. Otherwise, no other complaints. PHYSICAL EXAMINATION: Vital Signs: Blood pressure supine is 107/61, pulse of 76, and standing blood pressure 76/52 with a pulse of 104. SHEENT: Normocephalic. No facial droop. Neck is supple. Heart: Regular rate and rhythm. Normal S1 and S2. No gallops. No rubs. Lungs: Equal bilaterally. No crackles. No wheezing. Abdomen: Soft and nontender. Bowel sounds positive. Extremities: Negative for any pedal edema. No calf tenderness and there is still the immobilizer on the left lower leg. PLAN: We will admit the patient to acute care. I am going to start her on fludrocortisone to see if it is going to help with the orthostatic vital signs, and I am going to put her again on some fluid, and we will see how she does. [facility] /[id number]
[2017-07-10] MEDS: Midodrine 2.5 MG Tab PO SCH ×3 (08:56→21:06)
[2017-07-10] MEDS: Cholecalciferol (Vitamin D3) 400 Unit Tab PO SCH (08:56)
[2017-07-10] MEDS: Multivitamins,Therapeutic Tab PO SCH (08:56)
[2017-07-10] MEDS: Gabapentin 300 MG Cap PO SCH ×3 (08:56→21:06)
[2017-07-10] MEDS: Enoxaparin 30 MG/0.3 ML Syringe SUBCUT SCH (08:56)
[2017-07-10] MEDS: Timolol Maleate 0.5% Ophth Soln 5 ML Bottle EYERT SCH ×2 (08:57→21:08)
[2017-07-10] MEDS: Fludrocortisone 0.1 MG Tab PO SCH ×2 (09:38→17:08)
[2017-07-10] MEDS: Calcium Carbonate/Vitamin D3 1250 MG-200 Unit Tab PO SCH (11:56)
[2017-07-10] MEDS: atorvaSTATin 10 MG Tab PO SCH (21:06)
[2017-07-11] MEDS: Midodrine 2.5 MG Tab PO SCH ×2 (06:24→12:37)
[2017-07-11] MEDS: Pantoprazole 40 MG Tab.CR PO SCH (06:25)
[2017-07-11] MEDS: Levothyroxine 100 MCG Tab PO SCH (06:25)
[2017-07-11] MEDS: Fludrocortisone 0.1 MG Tab PO SCH (08:24)
[2017-07-11] MEDS: Gabapentin 300 MG Cap PO SCH (08:24)
[2017-07-11] MEDS: Multivitamins,Therapeutic Tab PO SCH (08:25)
[2017-07-11] MEDS: Cholecalciferol (Vitamin D3) 400 Unit Tab PO SCH (08:25)
[2017-07-11] MEDS: Enoxaparin 30 MG/0.3 ML Syringe SUBCUT SCH (08:25)
[2017-07-11] MEDS: Timolol Maleate 0.5% Ophth Soln 5 ML Bottle EYERT SCH (08:27)
[2017-07-11] MEDS: Calcium Carbonate/Vitamin D3 1250 MG-200 Unit Tab PO SCH (11:03)
[2017-07-11 11:40] VITALS: BP 104/65
--- NOTE | 2017-07-11 11:47 | PN ---
DATE: 07/11/2017 SUBJECTIVE: The patient had a good night and so far has not had any problems with syncope, but the patient still showing some manifestation of orthostasis. Telemetry remains in sinus rhythm with no significant arrhythmia. This morning, the patient denies any chest pain, shortness of breath, headache, nor any other complaints; and she is insisting that she be discharged today as she is going to [facility] tomorrow for appointment. OBJECTIVE: Vital Signs: Blood pressure is 140/74, pulse of 77. Orthostatic Vital Signs: Standing blood pressure is 104/63, supine is 140/74. Heart: Regular rate and rhythm. Normal S1 and S2. No gallops. No rubs. Lungs: Equal bilaterally. No crackles. No wheezing. Abdomen: Soft and nontender. Bowel sounds positive. Extremities: Remarkable for the boot on the left foot. MEDICATIONS: Reviewed. PLAN: We will continue with her present management, and we will discharge the patient home today, and she will be going to [facility] tomorrow; and I am going to have her follow up with Virgen Rosales NP, in 7 to 10 days. [facility] /[id number]
--- NOTE | 2017-07-12 07:21 | DISCH ---
DATE OF SERVICE: 07/11/2017 FINAL DIAGNOSES: 1. Recurrent syncope, secondary to orthostatic hypotension from autonomic neuropathy and nephrotic syndrome. 2. Primary amyloidosis. 3. Hypothyroidism. 4. Gastroesophageal reflux. 5. Restless legs syndrome. BRIEF HISTORY OF PRESENT ILLNESS: Please see H and P. PERTINENT LABORATORY DATA, X-RAY, AND OTHER TESTS: Please see H and P. HOSPITAL COURSE: The patient was initially admitted to observation, and the patient's midodrine was increased to 10 mg three times a day. She was placed on telemetry, and telemetry remained in sinus rhythm with no significant arrhythmia. The patient continued to have symptoms of orthostasis, and while in observation, the patient developed again an episode of syncope; and because of this, the patient was started on fludrocortisone in addition to the midodrine, and the patient's IV fluids was continued. She was still closely observed, and during this time after 24 hours of observation with the midodrine and fludrocortisone on board, the patient did not have any more episodes of syncope but continued to have signs of orthostasis. Because the patient has an appointment in [facility] on Wednesday, she insisted to be discharged. CONDITION ON DISCHARGE: Improved. PLAN: The patient was advised to keep her appointment in [facility], and she will also follow up with Virgen Rosales NP, who is her primary care provider in [address] [facility] /[id number]
== END 2017-07-11 13:30 | disposition home or self-care (01) | DRG 312 ==
LOC: DL.ED 08:54 → DL.MS 11:45 → UNDOADMOB 11:45 → DL.MS 11:50 → OBSVTOIN 07-10 08:13 → INTOOBSV 07-10 08:13 → DL.MS 07-10 11:50 → OBSVTOIN 07-10 11:50
PROVIDERS: ADMIT Hospitalist; ATTEND Hospitalist
DX: R55 Syncope and collapse (principal); I95.1 Orthostatic hypotension; C90.00 Multiple myeloma not having achieved remission; E85.81 Light chain (AL) amyloidosis; E85.4 Organ-limited amyloidosis; E85.1 Neuropathic heredofamilial amyloidosis; E86.0 Dehydration; G25.81 Restless legs syndrome; I44.0 Atrioventricular block, first degree; I45.10 Unspecified right bundle-branch block; N08 Glomerular disorders in diseases classified elsewhere; G63 Polyneuropathy in diseases classified elsewhere; E78.5 Hyperlipidemia, unspecified; E85.9 Amyloidosis, unspecified; I12.9 Hypertensive chronic kidney disease with stage 1 through stage 4 chronic kidney disease, or unspecified chronic kidney disease; N18.9 Chronic kidney disease, unspecified; F41.9 Anxiety disorder, unspecified; E03.9 Hypothyroidism, unspecified; E53.8 Deficiency of other specified B group vitamins; E78.00 Pure hypercholesterolemia, unspecified; J45.909 Unspecified asthma, uncomplicated; K21.9 Gastro-esophageal reflux disease without esophagitis; M19.90 Unspecified osteoarthritis, unspecified site; M81.0 Age-related osteoporosis without current pathological fracture; H40.9 Unspecified glaucoma; R53.83 Other fatigue; R53.1 Weakness; R06.02 Shortness of breath; L43.9 Lichen planus, unspecified; H04.129 Dry eye syndrome of unspecified lacrimal gland; R91.8 Other nonspecific abnormal finding of lung field; K59.09 Other constipation; K57.90 Diverticulosis of intestine, part unspecified, without perforation or abscess without bleeding; L90.0 Lichen sclerosus et atrophicus; R11.2 Nausea with vomiting, unspecified; G43.909 Migraine, unspecified, not intractable, without status migrainosus; Z88.8 Allergy status to other drugs, medicaments and biological substances; Z91.041 Radiographic dye allergy status; Z85.3 Personal history of malignant neoplasm of breast; Z86.010 Personal history of colon polyps; Z90.12 Acquired absence of left breast and nipple; Z87.891 Personal history of nicotine dependence; Z79.899 Other long term (current) drug therapy
CPT/HCPCS: 36415 ×2; 80048; 80053; 81001; 85025 ×2; 93005; 93010; 97165; 99285; A9270 ×26; J1650 ×3; J7030 ×5; 96361; 96372; 97162-GP; G0378

== ENCOUNTER 2017-09-07 09:01 | Emergency (ER) | payer MEDICARE, BC ==
--- NOTE | 2017-09-07 09:06 | EDM.PDOC ---
ED HPI GENERAL MEDICAL PROBLEM - General Chief Complaint: Neurological Problem Stated Complaint: CONFUSSION, ? TIA, FROM [facility] Time Seen by Provider: 09/07/17 09:05 Source of Information: Reports: Patient, Family, Old Records, RN, RN Notes Reviewed History Limitations: Reports: No Limitations - History of Present Illness INITIAL COMMENTS - FREE TEXT/NARRATIVE: Pt sent from [facility] by her tele-medicine oncologist (Dr. Buchanan) due to possible stroke/TIA. Pt states that she was having a normal morning other than having diarrhea x3 days. Pt states that she had 3 "back to back" diarrhea BMs at 0745HRS after which she she felt confused, and could figure out how to zip her pants, or use a light switch. During the period of confusion pt states that she could not make her right hand/arm do what she wanted it to do. Pt's granddaughter was present and noticed the pt's speech was very slurred. Pt alerted the granddaughter that she thought she was having a stroke. The granddaughter called 911 for an ambulance. In less than 10 minutes from the onset the symptoms completely resolved, so they called off the ambulance. The pt then got ready and went to her oncology appointment. Pt denies current or recent headache, chest pain, palpitations, visual changes, difficulty swallowing, loss of bowel or bladder control, or lower extremity weakness. While in the ER the pt experienced a second episode of the same symptoms which lasted less than a minute. Onset: Today, Sudden Duration: Resolved Prior to Arrival Location: Reports: Upper Extremity, Right, Other (speech) Quality: Reports: Other (denies pain) Improves with: Reports: None Worsens with: Reports: None Associated Symptoms: Reports: No Other Symptoms - Related Data Allergies Allergy/AdvReac Type Severity Reaction Status Date / Time Iodinated Contrast- Oral and Allergy Intermediate Hives Verified 09/07/17 09:13 IV Dye adhesive tape Allergy Mild Rash Verified 09/07/17 09:13 benzalkonium chloride Allergy Mild Rash Verified 09/07/17 09:13 [From Neosporin Nickolas To Go] pramoxine HCl Allergy Mild Rash Verified 09/07/17 09:13 [From Neosporin Nickolas To Go] Home Meds: Home Meds Gabapentin [Neurontin] 600 mg PO TID 04/15/15 [History] Multivitamin [Multiple Vitamins] 1 tab PO DAILY 04/15/15 [History] Timolol [Betimol 0.5% Ophth Soln] 1 drop EYERT BID 04/15/15 [History] atorvaSTATin [Lipitor] 10 mg PO BEDTIME 04/15/15 [History] Cholecalciferol (Vitamin D3) [Vitamin D3] 400 units PO DAILY 04/16/15 [History] Calcium Carbonate/Vitamin D3 [Calcium 500-Vit D3 400 Tablet] 1 tab PO ACLUNCH [History] Levothyroxine [Synthroid] 100 mcg PO ACBREAKFAST 10/24/15 [History] Acetaminophen [Tylenol Arthritis] 650 mg PO Q4HR PRN 08/10/16 [History] Albuterol [Ventolin HFA] 2 puff INH Q4H PRN 11/23/16 [History] Ondansetron [Zofran] 1 tab PO Q8H PRN 11/23/16 [History] Zoledronic Acid in Water [Reclast] 1 injection IM .YEARLY 11/23/16 [History] Pantoprazole Sodium [Protonix] 40 mg PO DAILY 06/08/17 [History] Prochlorperazine Maleate [Compazine] 10 mg PO Q6HR PRN 07/08/17 [History] Fludrocortisone [Florinef] 0.1 mg PO BIDMEALS 15 Days #30 tablet 07/11/17 [Rx] Loteprednol Etabonate [Alrex] 1 drop EYEBOTH DAILY PRN 30 Days #1 drops.susp [Rx] Midodrine 10 mg PO 0600,1200,1800 30 Days #90 tablet 07/11/17 [Rx] Past Medical History HEENT History: Reports: Cataract, Glaucoma, Other (See Below) Other HEENT History: dry eye disease, Lichen Planus Cardiovascular History: Reports: Arrhythmia, High Cholesterol Respiratory History: Reports: Asthma, Bronchitis, Recurrent, Other (See Below) Other Respiratory History: LUNG NODULES Gastrointestinal History: Reports: Cholelithiasis, Chronic Constipation, Colon Polyp, Diverticulosis, GERD Genitourinary History: Reports: Other (See Below) Other Genitourinary History: kidney disease-amyloidosis 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 HX OF RIGHT HIP FRACTURE Neurological History: Reports: Migraines, Other (See Below) Other Neuro History: restless legs Psychiatric History: Reports: Anxiety Endocrine/Metabolic History: Reports: Hypothyroidism, Osteoporosis Hematologic History: Reports: B12 Deficiency Immunologic History: Reports: None Oncologic (Cancer) History: Reports: Breast Dermatologic History: Reports: None - Infectious Disease History Infectious Disease History: Reports: Chicken Pox, Measles, Mumps, Pertussis ( Whooping Cough) - Past Surgical History Head Surgeries/Procedures: Reports: None HEENT Surgical History: Reports: Cataract Surgery, Laser Surgery Cardiovascular Surgical History: Reports: None Respiratory Surgical History: Reports: None GI Surgical History: Reports: Colonoscopy, EGD, Polypectomy Female Surgical History: Reports: Mastectomy Other Female Surgeries/Procedures: LEFT SIDED MASTECTOMY Endocrine Surgical History: Reports: None Neurological Surgical History: Reports: None Musculoskeletal Surgical History: Reports: Other (See Below) Other Musculoskeletal Surgeries/Procedures:: Right hip fracture with repair, nail placed. left great screws placed with fusion, pin in right foot above right great toe for bunyon. right hand two knuckles replaced. Oncologic Surgical History: Reports: Mastectomy, Other (See Below) Other Oncologic Surgeries/Procedures: Left breast mastectomy Dermatological Surgical History: Reports: Skin Biopsy Social & Family History - Family History Family Medical History: Noncontributory - Caffeine Use Caffeine Use: Reports: None Other Caffeine Use: 1 CUP OF TEA OR COFFEE, OCCASIONALLY - Living Situation & Occupation Living situation: Reports: , with Spouse Occupation: Retired ED ROS GENERAL - Review of Systems Review Of Systems: ROS reveals no pertinent complaints other than HPI. - Physical Exam Exam: See Below Exam Limited By: No Limitations General Appearance: Alert, WD/WN, No Apparent Distress Eye Exam: Bilateral Eye: EOMI, Normal Inspection, PERRL Ears: Normal External Exam, Hearing Grossly Normal Nose: Normal Inspection, Normal Mucosa, No Blood Throat/Mouth: Normal Inspection, Normal Lips, Normal Teeth, Normal Gums, Normal Oropharynx, Normal Voice, No Airway Compromise Head Exam: Atraumatic, Normocephalic Neck: Normal Inspection, Supple, Non-Tender, Full Range of Motion Respiratory/Chest: No Respiratory Distress, Lungs Clear, Normal Breath Sounds, No Accessory Muscle Use, Chest Non-Tender Cardiovascular: Regular Rate, Rhythm, No Gallop, No JVD, No Rub GI/Abdominal: Normal Bowel Sounds, Soft, Non-Tender, No Distention, No Abnormal Bruit. No: Guarding, Rigid, Rebound (Female) Exam: Deferred Rectal (Female) Exam: Deferred Neuro Exam (Abbreviated): Alert, Oriented, CN II-XII Intact, Normal Cognition, Normal Gait, No Motor/Sensory Deficits Back Exam: Normal Inspection Extremities: Normal Range of Motion, Non-Tender, Pedal Edema (chronic/stable) Psychiatric: Normal Affect, Normal Mood Skin Exam: Warm, Dry, Intact, Normal Color, No Rash EKG INTERPRETATION EKG Date: 09/07/17 Time: 09:34 Rhythm: Other (SR) Rate (Beats/Min): 85 P-Wave: Present (with 1st degree AVB) QRS: RBBB (atypical RBBB/IVCD) ST-T: Normal QT: Normal Comparison: NA - No Prior EKG Course - Vital Signs Last Recorded V/S: Last Vital Signs Temp 36.6 C 09/07/17 09:12 Pulse 85 09/07/17 09:12 Resp 16 09/07/17 09:12 BP 115/65 09/07/17 09:12 Pulse Ox 100 09/07/17 09:12 - Orders/Labs/Meds Orders: Active Orders 24 hr Category Date Time Status EKG 12 Lead [EKG Documentation Completion] [RC] STAT Care 09/07/17 09:21 Active UA W/MICROSCOPIC [URIN] Stat Lab 09/07/17 09:59 Ordered Labs: Laboratory Tests 09/07/17 09/07/17 09/07/17 Range/Units 09:38 09:38 09:59 WBC 5.3 (5.0-10.0) 10^3/uL RBC 3.21 L (4.2-5.4) 10^6/uL Hgb 10.3 L (12.0-16.0) g/dL Hct 30.8 L (37.0-47.0) % MCV 96.0 (80-100) fL MCH 32.1 (27.0-34.0) pg MCHC 33.4 (33.0-35.0) g/dL Plt Count 170 D (150-450) 10^3/uL Neut % (Auto) 64.5 (42.2-75.2) % Lymph % (Auto) 14.4 L (20.5-50.1) % [place] % (Auto) 15.6 H (2-8) % Eos % (Auto) 4.9 H (1.0-3.0) % Baso % (Auto) 0.6 (0.0-1.0) % Sodium 138 (135-145) mmol/L Potassium 3.0 L (3.6-5.0) mmol/L Chloride 101 (101-111) mmol/L Carbon Dioxide 30.0 (21.0-31.0) mmol/L Anion Gap 10.0 BUN 17 (7-18) mg/dL Creatinine 1.0 (0.6-1.3) mg/dL Est Cr Clr Drug Dosing TNP Estimated GFR (MDRD) 54 BUN/Creatinine Ratio 17.00 Glucose 100 (74-105) mg/dL Calcium 8.6 (8.4-10.2) mg/dl Magnesium 2.1 (1.8-2.5) mg/dL Total Bilirubin 0.8 (0.2-1.0) mg/dL AST 28 (10-42) IU/L ALT 25 (10-60) IU/L Alkaline Phosphatase 62 (42-121) IU/L Total Protein 4.9 L (6.7-8.2) g/dl Albumin 2.8 L (3.2-5.5) g/dl Globulin 2.1 Albumin/Globulin Ratio 1.33 Urine Color Yellow (YELLOW) Urine Appearance Clear (CLEAR) Urine pH 7.0 (5.0-9.0) Ur Specific [place] 1.015 (1.005-1.030) Urine Protein >=300 H (NEGATIVE) Urine Glucose (UA) Negative (NEGATIVE) Urine Ketones Negative (NEGATIVE) Urine Occult Blood Trace-lysed H (NEGATIVE) Urine Nitrite Negative (NEGATIVE) Urine Bilirubin Negative (NEGATIVE) Urine Urobilinogen 0.2 (0.2-1.0) mg/dL Ur Leukocyte Esterase Trace H (NEGATIVE) Urine RBC 0-5 /HPF Urine WBC 0-5 (0-5/HPF) /HPF Ur Epithelial Cells Few /HPF Urine Bacteria Few (0-FEW/HPF) /HPF Urine Mucus Not seen /LPF - Radiology Interpretation Free Text/Narrative:: CT Head: tiny calcium deposit vs blood at Rt deep basal ganglia (present on prior study per Dr. Jaquez, [facility] neurologist); see Rad. report. - Re-Assessments/Exams Free Text/Narrative Re-Assessment/Exam: 09/07/17 Dr. Jaquez (neuro.) was consulted via [facility]. He advises to have the pt transferred to [facility] ER without any treatment/thrombolytic tx at this time. Departure - Departure Time of Disposition: 10:33 Disposition: DC/Tfer to Acute Hospital 02 Condition: Serious Clinical Impression: TIA (transient ischemic attack) Qualifiers: Transient cerebral ischemia type: unspecified Qualified Code(s): G45.9 - Transient cerebral ischemic attack, unspecified - Discharge Information Forms: ED Department Discharge, Interfacility Transfer EMTALA - My Orders Last 24 Hours: My Active Orders 09/07/17 09:21 EKG 12 Lead [EKG Documentation Completion] [RC] STAT 09/07/17 09:59 UA W/MICROSCOPIC [URIN] Stat - Assessment/Plan Last 24 Hours: My Active Orders 09/07/17 09:21 EKG 12 Lead [EKG Documentation Completion] [RC] STAT 09/07/17 09:59 UA W/MICROSCOPIC [URIN] Stat
[2017-09-07 09:13] VITALS: BP 115/65
[2017-09-07 10:03] LABS: CHLORIDE,CL 101 mmol/L (101-111); SODIUM,NA 138 mmol/L (135-145)
--- NOTE | 2017-09-07 10:07 | CT ---
Clinical history: 72-year-old female with ataxia and transient confusion (TIA). No known fall/head tr auma. No previous studies head. Scan technique: Volume acquisition of data emergency unenhanced CT scan of the head and brain obtaine d with patient lying supine on the Siemens multi slice scanner [facility]. All data archived in the PACS system for storage and study (bone/brain windows). Interpretation: 1. *Asymmetric tiny bright lesion (blood? Calcium?) at the genu internal capsule, deep basal ganglia, right cerebral hemisphere. No surrounding edema or mass effect on the ipsilateral ventricle. Suggest probably benign calcification but no comparison films. 2. No other evidence of acute intracerebral or intraventricular/subarachnoid bleed. 3. Symmetric age-appropriate atrophy with underlying mirror-image normal ventricular system. 4. Dense midline pineal and symmetric choroid plexus calcifications. No supratentorial or posterior f arlene mass lesion. 5. Uniformly thick bony calvarium without sign of skull fracture, underlying brain contusion or epidu ral/subdural hematoma. 6. Cerebellum and brainstem unremarkable. 7. Symmetric clear pneumatization of the mastoid and paranasal sinuses with the exception of a solita ry large retention cyst lateral wall right maxillary antrum. Nasal septum is straight in the midline. No foreign bodies or facial bone fractures. CONCLUSION: See comments regarding basal ganglia above (#1). Retention cyst maxillary sinus, on the r ight.
--- NOTE | 2017-09-08 12:37 | EKG ---
09/07/2017 - ABEBA ESTRELLA TIME: 9:34 a.m. FINDINGS: Sinus rhythm at 85. As per reading, felt to be AV block. [facility] /[id number]
== END 2017-09-07 11:39 ==
LOC: DL.ED 09:01
DX: G45.9 Transient cerebral ischemic attack, unspecified (principal); E78.00 Pure hypercholesterolemia, unspecified; K21.9 Gastro-esophageal reflux disease without esophagitis; J45.909 Unspecified asthma, uncomplicated; E03.9 Hypothyroidism, unspecified; Z91.041 Radiographic dye allergy status; Z88.8 Allergy status to other drugs, medicaments and biological substances; Z79.899 Other long term (current) drug therapy
CPT/HCPCS: 36415; 70450; 80053; 81001; 83735; 85025; 93005; 93010; 99285

== ENCOUNTER 2017-12-12 07:52 | Observation (INO) | payer MEDICARE, BC, MEDICAID ==
--- NOTE | 2017-12-12 08:02 | EDM.PDOC ---
ED HPI GENERAL MEDICAL PROBLEM - General Chief Complaint: Syncope Stated Complaint: IN [facility] Time Seen by Provider: 12/12/17 08:01 Source of Information: Reports: Patient, EMS, EMS Notes Reviewed, RN, RN Notes Reviewed History Limitations: Reports: No Limitations - History of Present Illness INITIAL COMMENTS - FREE TEXT/NARRATIVE: Pt to ER per [facility] with c/o fainting x4 this morning. Patient states she has amloidosis and had chemotherapy injection on Wednesday. Patient states she has had some cramping in the stomach, but this is normal after the chemo injections. Patient denies feeling ill otherwise, denies fever, chills, cough, CP, SOB. Patient states this has happened in the past and she has been drinking ample amounts of water to try to stay hydrated. Onset: Today, Sudden - Related Data Allergies Allergy/AdvReac Type Severity Reaction Status Date / Time Iodinated Contrast- Oral and Allergy Intermediate Hives Verified 09/07/17 09:13 IV Dye adhesive tape Allergy Mild Rash Verified 09/07/17 09:13 benzalkonium chloride Allergy Mild Rash Verified 09/07/17 09:13 [From Neosporin Nickolas To Go] pramoxine HCl Allergy Mild Rash Verified 09/07/17 09:13 [From Neosporin Nickolas To Go] Home Meds: Home Meds Gabapentin [Neurontin] 600 mg PO TID 04/15/15 [History] Multivitamin [Multiple Vitamins] 1 tab PO DAILY 04/15/15 [History] Timolol [Betimol 0.5% Ophth Soln] 1 drop EYERT BID 04/15/15 [History] atorvaSTATin [Lipitor] 40 mg PO BEDTIME 04/15/15 [History] Cholecalciferol (Vitamin D3) [Vitamin D3] 400 units PO DAILY 04/16/15 [History] Calcium Carbonate/Vitamin D3 [Calcium 500-Vit D3 400 Tablet] 1 tab PO ACLUNCH [History] Levothyroxine [Synthroid] 100 mcg PO ACBREAKFAST 10/24/15 [History] Acetaminophen [Tylenol Arthritis] 650 mg PO Q4HR PRN 08/10/16 [History] Albuterol [Ventolin HFA] 2 puff INH Q4H PRN 11/23/16 [History] Ondansetron [Zofran] 1 tab PO Q8H PRN 11/23/16 [History] Zoledronic Acid in Water [Reclast] 1 injection IM .YEARLY 11/23/16 [History] Prochlorperazine Maleate [Compazine] 10 mg PO Q6HR PRN 07/08/17 [History] Fludrocortisone [Florinef] 0.1 mg PO BIDMEALS 15 Days #30 tablet 07/11/17 [Rx] Midodrine 10 mg PO 0600,1200,1800 30 Days #90 tablet 07/11/17 [Rx] Acyclovir [Zovirax] 400 mg PO BID 12/12/17 [History] Aspirin [Halfprin] 81 mg PO DAILY 12/12/17 [History] Cyclophosphamide 400 mg PO WEEKLY 12/12/17 [History] Dexamethasone 20 mg PO WEEKLY 12/12/17 [History] Sulfamethoxazole/Trimethoprim [Sulfamethoxazole-Tmp Ds Tablet] 800 mg PO ASDIRECTED 12/12/17 [History] Past Medical History HEENT History: Reports: Cataract, Glaucoma, Other (See Below) Other HEENT History: dry eye disease, Lichen Planus Cardiovascular History: Reports: Arrhythmia, High Cholesterol Respiratory History: Reports: Asthma, Bronchitis, Recurrent, Other (See Below) Other Respiratory History: LUNG NODULES Gastrointestinal History: Reports: Cholelithiasis, Chronic Constipation, Colon Polyp, Diverticulosis, GERD Genitourinary History: Reports: Other (See Below) Other Genitourinary History: kidney disease-amyloidosis 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 HX OF RIGHT HIP FRACTURE Neurological History: Reports: Migraines, Other (See Below) Other Neuro History: restless legs Psychiatric History: Reports: Anxiety Endocrine/Metabolic History: Reports: Hypothyroidism, Osteoporosis Hematologic History: Reports: B12 Deficiency Immunologic History: Reports: None Oncologic (Cancer) History: Reports: Breast Dermatologic History: Reports: None - Infectious Disease History Infectious Disease History: Reports: Chicken Pox, Measles, Mumps, Pertussis ( Whooping Cough) - Past Surgical History Head Surgeries/Procedures: Reports: None HEENT Surgical History: Reports: Cataract Surgery, Laser Surgery Cardiovascular Surgical History: Reports: None Respiratory Surgical History: Reports: None GI Surgical History: Reports: Colonoscopy, EGD, Polypectomy Female Surgical History: Reports: Mastectomy Other Female Surgeries/Procedures: LEFT SIDED MASTECTOMY Endocrine Surgical History: Reports: None Neurological Surgical History: Reports: None Musculoskeletal Surgical History: Reports: Other (See Below) Other Musculoskeletal Surgeries/Procedures:: Right hip fracture with repair, nail placed. left great screws placed with fusion, pin in right foot above right great toe for bunyon. right hand two knuckles replaced. Oncologic Surgical History: Reports: Mastectomy, Other (See Below) Other Oncologic Surgeries/Procedures: Left breast mastectomy Dermatological Surgical History: Reports: Skin Biopsy Social & Family History - Family History Family Medical History: Noncontributory - Caffeine Use Caffeine Use: Reports: None Other Caffeine Use: 1 CUP OF TEA OR COFFEE, OCCASIONALLY - Living Situation & Occupation Living situation: Reports: , with Spouse Occupation: Retired ED ROS GENERAL - Review of Systems Review Of Systems: ROS reveals no pertinent complaints other than HPI. - Physical Exam Exam: See Below Exam Limited By: No Limitations General Appearance: Alert, WD/WN, Thin, Other (weary, appears weak and exhausted ) Eye Exam: Bilateral Eye: EOMI, Normal Inspection Ears: Normal External Exam, Hearing Grossly Normal Nose: Normal Inspection Throat/Mouth: Normal Inspection, Normal Voice, No Airway Compromise Head Exam: Atraumatic, Normocephalic Neck: Normal Inspection, Supple, Non-Tender, Full Range of Motion (Female) Exam: Deferred Rectal (Female) Exam: Deferred Neuro Exam (Abbreviated): Alert, Oriented, CN II-XII Intact, Normal Cognition, Normal Reflexes, No Motor/Sensory Deficits Back Exam: Normal Inspection, Full Range of Motion Extremities: Normal Inspection, Normal Range of Motion, Non-Tender, No Pedal Edema, Normal Capillary Refill Psychiatric: Normal Mood, Flat Affect Skin Exam: Warm, Dry, Intact, Normal Color, No Rash EKG INTERPRETATION EKG Date: 12/12/17 Time: 08:10 Rhythm: Other (sinus rhythm with first degree block) Rate (Beats/Min): 76 [place]: Normal P-Wave: Present QRS: Wide ST-T: Normal QT: Normal Comparison: No Change Course - Vital Signs Last Recorded V/S: Last Vital Signs Temp 97.9 F 12/12/17 07:57 Pulse 82 12/12/17 07:57 Resp 16 12/12/17 07:57 BP 105/46 L 12/12/17 07:57 Pulse Ox 99 12/12/17 07:57 Orthostatic Blood Pressure [ 83/42 Standing] Orthostatic Blood Pressure [ 88/55 Sitting] Orthostatic Blood Pressure [ 133/63 Supine] - Orders/Labs/Meds Orders: Active Orders 24 hr Category Date Time Status EKG Documentation Completion [RC] STAT Care 12/12/17 08:02 Active Implanted Port Access [RC] QSHIFT Care 12/12/17 08:03 Active Ribs 2V w Chest Lt [CR] Urgent Exams 12/12/17 08:53 Taken Labs: Laboratory Tests 12/12/17 12/12/17 12/12/17 Range/Units 08:05 08:05 09:15 WBC 6.1 (5.0-10.0) 10^3/uL RBC 3.11 L (4.2-5.4) 10^6/uL Hgb 10.4 L (12.0-16.0) g/dL Hct 31.4 L (37.0-47.0) % MCV 101.0 H D (80-100) fL MCH 33.4 (27.0-34.0) pg MCHC 33.1 (33.0-35.0) g/dL Plt Count 194 (150-450) 10^3/uL Neut % (Auto) 73.2 (42.2-75.2) % Lymph % (Auto) 7.5 L (20.5-50.1) % [place] % (Auto) 11.0 H (2-8) % Eos % (Auto) 7.5 H (1.0-3.0) % Baso % (Auto) 0.8 (0.0-1.0) % Sodium 139 (135-145) mmol/L Potassium 3.7 (3.6-5.0) mmol/L Chloride 109 (101-111) mmol/L Carbon Dioxide 23.0 (21.0-31.0) mmol/L Anion Gap 10.7 BUN 21 H (7-18) mg/dL Creatinine 1.6 H (0.6-1.3) mg/dL Est Cr Clr Drug Dosing 24.77 mL/min Estimated GFR (MDRD) 32 BUN/Creatinine Ratio 13.12 Glucose 91 (74-105) mg/dL Calcium 8.0 L (8.4-10.2) mg/dl Total Bilirubin 0.9 (0.2-1.0) mg/dL AST 31 (10-42) IU/L ALT 24 (10-60) IU/L Alkaline Phosphatase 53 (42-121) IU/L Troponin I 0.04 H* (0.00-0.02) ng/ml Total Protein 5.0 L (6.7-8.2) g/dl Albumin 2.8 L (3.2-5.5) g/dl Globulin 2.2 Albumin/Globulin Ratio 1.27 Urine Color Yellow (YELLOW) Urine Appearance Slightly cloudy (CLEAR) Urine pH 7.0 (5.0-9.0) Ur Specific [place] 1.025 (1.005-1.030) Urine Protein >=300 H (NEGATIVE) Urine Glucose (UA) Negative (NEGATIVE) Urine Ketones Trace H (NEGATIVE) Urine Occult Blood Moderate H (NEGATIVE) Urine Nitrite Negative (NEGATIVE) Urine Bilirubin Negative (NEGATIVE) Urine Urobilinogen 1.0 (0.2-1.0) mg/dL Ur Leukocyte Esterase Negative (NEGATIVE) Urine RBC 30-40 H /HPF Urine WBC 5-10 H (0-5/HPF) /HPF Ur Epithelial Cells Moderate H /HPF Amorphous Sediment Moderate H (0/HPF) /HPF Urine Bacteria Few (0-FEW/HPF) /HPF Urine Mucus Rare /LPF Meds: Medications Discontinued Medications Generic Name Dose Route Start Last Admin Trade Name Freq PRN Reason Stop Dose Admin Sodium Chloride 1,000 mls @ 999 mls/hr 12/12/17 08:03 12/12/17 08:10 Normal Saline IV 12/12/17 09:03 999 mls/hr .BOLUS ONE Administration Departure - Departure Time of Disposition: 09:54 Disposition: Refer to Observation Condition: Fair Clinical Impression: Lichen amyloidosus, Dehydration Chemotherapy adverse reaction Qualifiers: Encounter type: initial encounter Qualified Code(s): T45.1X5A - Adverse effect of antineoplastic and immunosuppressive drugs, initial encounter - Discharge Information *PRESCRIPTION DRUG MONITORING PROGRAM REVIEWED*: No *COPY OF PRESCRIPTION DRUG MONITORING REPORT IN PATIENT NERISSA: No Forms: ED Department Discharge - My Orders Last 24 Hours: My Active Orders 12/12/17 08:02 EKG Documentation Completion [RC] STAT 12/12/17 08:03 Implanted Port Access [RC] QSHIFT 12/12/17 08:53 Ribs 2V w Chest Lt [CR] Urgent - Assessment/Plan Last 24 Hours: My Active Orders 12/12/17 08:02 EKG Documentation Completion [RC] STAT 12/12/17 08:03 Implanted Port Access [RC] QSHIFT 12/12/17 08:53 Ribs 2V w Chest Lt [CR] Urgent
[2017-12-12] MEDS ORDERED: Sodium Chloride 0.9% 1,000 ML IV ONE (08:03)
[2017-12-12 08:31] LABS: ANION GAP 10.7
[2017-12-12] MEDS ORDERED: Ondansetron 4 MG/2 ML SDV IVPUSH PRN (11:05)
[2017-12-12] MEDS ORDERED: Non-Formulary Medication 1 Each (Acetaminophen [Tylenol Arthritis] 650 MG) PO PRN (11:12)
[2017-12-12] MEDS ORDERED: Albuterol 6.7 GM Inhaler INH PRN (11:12)
[2017-12-12] MEDS ORDERED: ZOLEDRONIC ACID IM SCH (11:15)
[2017-12-12] MEDS ORDERED: Sodium Chloride 0.9% 1,000 ML IV SCH (11:15)
[2017-12-12] MEDS ORDERED: CYCLOPHOSPHAMIDE PO SCH (11:15)
[2017-12-12] MEDS ORDERED: [UNRECOGNIZED DRUG - OTHER] IM SCH (11:15)
[2017-12-12] MEDS ORDERED: Ondansetron 4 MG Tab.DIS PO PRN (11:30)
[2017-12-12] MEDS ORDERED: Prochlorperazine 5 MG Tab PO PRN (11:45)
[2017-12-12] MEDS ORDERED: Midodrine 2.5 MG Tab PO ONE (11:45)
--- NOTE | 2017-12-12 11:53 | PCM.HP ---
H&P History of Present Illness - General Date of Service: 12/12/17 Admit Problem/Dx: Admission Diagnosis/Problem Admission Diagnosis/Problem Orthostatic hypotension Source of Information: Patient History Limitations: Reports: No Limitations - History of Present Illness Initial Comments - Free Text/Narative: Patient is 72 y/o F with PMH of amyloidosis and had chemotherapy injection on Wednesday, h/o orthostasis hypotension on midodrine. She presented to the ER following multiple syncope this morning x 4. Said she was well till above started this morning. She was ambulating in her house when she fell to the ground. She denies hitting her head. Loss of consciousness was very brief. She denied any prodrome. No chest pain, dizziness, palpation. SHe had 3 more episode following this and the was around to help him to the floor. Each episode lasting about 30 seconds. She denied jerky movement of the limbs, tongue biting or loss of syncope. She has not had any fever or chills. No N/V. She notes loose stool but no diarrhea. No melena. hematochezia, hematemesis. In the ER she received IVF but with improvement in BP. However patient dropped again when patient was made to stand. Onset of Symptoms: Reports: Sudden Duration of Symptoms: Reports: Improving Location: Reports: Other (syncope) Severity: Moderate Improves with: Reports: Rest Worsens with: Reports: Movement Associated Symptoms: Reports: Syncope - Related Data Allergies/Adverse Reactions: Allergies Allergy/AdvReac Type Severity Reaction Status Date / Time Iodinated Contrast- Oral and Allergy Intermediate Hives Verified 12/12/17 10:30 IV Dye adhesive tape Allergy Mild Rash Verified 12/12/17 10:30 benzalkonium chloride Allergy Mild Rash Verified 12/12/17 10:30 [From Neosporin Nickolas To Go] pramoxine HCl Allergy Mild Rash Verified 12/12/17 10:30 [From Neosporin Nickolas To Go] Home Medications: Home Meds Gabapentin [Neurontin] 600 mg PO TID 04/15/15 [History] Multivitamin [Multiple Vitamins] 1 tab PO DAILY 04/15/15 [History] Timolol [Betimol 0.5% Ophth Soln] 1 drop EYERT BID 04/15/15 [History] atorvaSTATin [Lipitor] 40 mg PO BEDTIME 04/15/15 [History] Cholecalciferol (Vitamin D3) [Vitamin D3] 400 units PO DAILY 04/16/15 [History] Calcium Carbonate/Vitamin D3 [Calcium 500-Vit D3 400 Tablet] 1 tab PO ACLUNCH [History] Levothyroxine [Synthroid] 100 mcg PO ACBREAKFAST 10/24/15 [History] Acetaminophen [Tylenol Arthritis] 650 mg PO Q4HR PRN 08/10/16 [History] Albuterol [Ventolin HFA] 2 puff INH Q4H PRN 11/23/16 [History] Ondansetron [Zofran] 1 tab PO Q8H PRN 11/23/16 [History] Zoledronic Acid in Water [Reclast] 1 injection IM .YEARLY 11/23/16 [History] Prochlorperazine Maleate [Compazine] 10 mg PO Q6HR PRN 07/08/17 [History] Fludrocortisone [Florinef] 0.1 mg PO BIDMEALS 15 Days #30 tablet 07/11/17 [Rx] Midodrine 10 mg PO 0600,1200,1800 30 Days #90 tablet 07/11/17 [Rx] Acyclovir [Zovirax] 400 mg PO BID 12/12/17 [History] Aspirin [Halfprin] 81 mg PO DAILY 12/12/17 [History] Cyclophosphamide 400 mg PO WEEKLY 12/12/17 [History] Dexamethasone 20 mg PO WEEKLY 12/12/17 [History] Sulfamethoxazole/Trimethoprim [Sulfamethoxazole-Tmp Ds Tablet] 800 mg PO ASDIRECTED 12/12/17 [History] Past Medical History HEENT History: Reports: Cataract, Glaucoma, Other (See Below) Other HEENT History: dry eye disease, Lichen Planus Cardiovascular History: Reports: Arrhythmia, High Cholesterol Respiratory History: Reports: Asthma, Bronchitis, Recurrent, Other (See Below) Other Respiratory History: LUNG NODULES Gastrointestinal History: Reports: Cholelithiasis, Chronic Constipation, Colon Polyp, Diverticulosis, GERD Genitourinary History: Reports: Other (See Below) Other Genitourinary History: kidney disease-amyloidosis 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 HX OF RIGHT HIP FRACTURE Neurological History: Reports: Migraines, Other (See Below) Other Neuro History: restless legs Psychiatric History: Reports: Anxiety Endocrine/Metabolic History: Reports: Hypothyroidism, Osteoporosis Hematologic History: Reports: B12 Deficiency Immunologic History: Reports: None Oncologic (Cancer) History: Reports: Breast Dermatologic History: Reports: None - Infectious Disease History Infectious Disease History: Reports: Chicken Pox, Measles, Mumps, Pertussis ( Whooping Cough) - Past Surgical History Head Surgeries/Procedures: Reports: None HEENT Surgical History: Reports: Cataract Surgery, Laser Surgery Cardiovascular Surgical History: Reports: None Respiratory Surgical History: Reports: None GI Surgical History: Reports: Colonoscopy, EGD, Polypectomy Female Surgical History: Reports: Mastectomy Other Female Surgeries/Procedures: LEFT SIDED MASTECTOMY Endocrine Surgical History: Reports: None Neurological Surgical History: Reports: None Musculoskeletal Surgical History: Reports: Other (See Below) Other Musculoskeletal Surgeries/Procedures:: Right hip fracture with repair, nail placed. left great screws placed with fusion, pin in right foot above right great toe for bunyon. right hand two knuckles replaced. Oncologic Surgical History: Reports: Mastectomy, Other (See Below) Other Oncologic Surgeries/Procedures: Left breast mastectomy Dermatological Surgical History: Reports: Skin Biopsy Social & Family History - Family History Family Medical History: Noncontributory - Tobacco Use Smoking Status *Q: Never Smoker Second Hand Smoke Exposure: No - Caffeine Use Caffeine Use: Reports: None Other Caffeine Use: 1 CUP OF TEA OR COFFEE, OCCASIONALLY - Recreational Drug Use Recreational Drug Use: No - Living Situation & Occupation Living situation: Reports: , with Spouse Occupation: Retired H&P Review of Systems - Review of Systems: Review Of Systems: See Below General: Reports: No Symptoms HEENT: Reports: No Symptoms Pulmonary: Reports: No Symptoms Cardiovascular: Reports: No Symptoms Gastrointestinal: Reports: No Symptoms Genitourinary: Reports: No Symptoms Musculoskeletal: Reports: No Symptoms Skin: Reports: No Symptoms Psychiatric: Reports: No Symptoms Neurological: Reports: No Symptoms Hematologic/Lymphatic: Reports: No Symptoms Immunologic: Reports: No Symptoms Exam - Exam Exam: See Below - Vital Signs Vital Signs: Last Vital Signs Temp 96.0 F 12/12/17 10:30 Pulse 101 H 12/12/17 10:30 Resp 20 12/12/17 10:30 BP 104/81 12/12/17 10:30 Pulse Ox 100 12/12/17 10:30 Orthostatic Blood Pressure [ 83/42 Standing] Orthostatic Blood Pressure [ 88/55 Sitting] Orthostatic Blood Pressure [ 133/63 Supine] Weight: 104 lb 12.8 oz - Exam Quality Assessment: DVT Prophylaxis General: Alert, Oriented, 4 HEENT: PERRLA, Hearing Intact, Mucosa Moist & [place], Nares Patent, Normal Nasal Septum, Posterior Pharynx Clear, Conjunctiva Clear, EOMI, EACs Clear, TMs Clear Neck: Supple, Trachea Midline, 2 Lungs: Clear to Auscultation, Normal Respiratory Effort Cardiovascular: Regular Rate, Regular Rhythm GI/Abdominal Exam: Normal Bowel Sounds, Soft, Non-Tender, No Organomegaly, No Distention, No Abnormal Bruit, No Mass, Pelvis Stable (Female) Exam: Normal External Exam, Normal Speculum Exam, Normal Bimanual Exam Rectal (Female) Exam: Normal Exam, Normal Rectal Tone Back Exam: Normal Inspection, Full Range of Motion, NT Extremities: Normal Inspection, Normal Range of Motion, Non-Tender, No Pedal Edema, Normal Capillary Refill Skin: Warm, Dry, Intact Neurological: Cranial Nerves Intact, Reflexes Equal Bilateral Neuro Extensive - Mental Status: Alert, Oriented x3, Normal Mood/Affect, Normal Cognition Neuro Extensive - Motor, Sensory, Reflexes: CN II-XII Intact, Normal Gait, Normal Reflexes Psychiatric: Alert, Normal Affect, Normal Mood - Patient Data Lab Results Last 24 hrs: Laboratory Results - last 24 hr 12/12/17 12/12/17 12/12/17 Range/Units 08:05 08:05 09:15 WBC 6.1 (5.0-10.0) 10^3/uL RBC 3.11 L (4.2-5.4) 10^6/uL Hgb 10.4 L (12.0-16.0) g/dL Hct 31.4 L (37.0-47.0) % MCV 101.0 H D (80-100) fL MCH 33.4 (27.0-34.0) pg MCHC 33.1 (33.0-35.0) g/dL Plt Count 194 (150-450) 10^3/uL Neut % (Auto) 73.2 (42.2-75.2) % Lymph % (Auto) 7.5 L (20.5-50.1) % [place] % (Auto) 11.0 H (2-8) % Eos % (Auto) 7.5 H (1.0-3.0) % Baso % (Auto) 0.8 (0.0-1.0) % Sodium 139 (135-145) mmol/L Potassium 3.7 (3.6-5.0) mmol/L Chloride 109 (101-111) mmol/L Carbon Dioxide 23.0 (21.0-31.0) mmol/L Anion Gap 10.7 BUN 21 H (7-18) mg/dL Creatinine 1.6 H (0.6-1.3) mg/dL Est Cr Clr Drug Dosing 24.77 mL/min Estimated GFR (MDRD) 32 BUN/Creatinine Ratio 13.12 Glucose 91 (74-105) mg/dL Calcium 8.0 L (8.4-10.2) mg/dl Total Bilirubin 0.9 (0.2-1.0) mg/dL AST 31 (10-42) IU/L ALT 24 (10-60) IU/L Alkaline Phosphatase 53 (42-121) IU/L Troponin I 0.04 H* (0.00-0.02) ng/ml Total Protein 5.0 L (6.7-8.2) g/dl Albumin 2.8 L (3.2-5.5) g/dl Globulin 2.2 Albumin/Globulin Ratio 1.27 Urine Color Yellow (YELLOW) Urine Appearance Slightly cloudy (CLEAR) Urine pH 7.0 (5.0-9.0) Ur Specific [place] 1.025 (1.005-1.030) Urine Protein >=300 H (NEGATIVE) Urine Glucose (UA) Negative (NEGATIVE) Urine Ketones Trace H (NEGATIVE) Urine Occult Blood Moderate H (NEGATIVE) Urine Nitrite Negative (NEGATIVE) Urine Bilirubin Negative (NEGATIVE) Urine Urobilinogen 1.0 (0.2-1.0) mg/dL Ur Leukocyte Esterase Negative (NEGATIVE) Urine RBC 30-40 H /HPF Urine WBC 5-10 H (0-5/HPF) /HPF Ur Epithelial Cells Moderate H /HPF Amorphous Sediment Moderate H (0/HPF) /HPF Urine Bacteria Few (0-FEW/HPF) /HPF Urine Mucus Rare /LPF Result Diagrams: 12/12/17 08:05 12/12/17 08:05 - Problem List (1) Acute renal failure SNOMED Code(s): 94538263 ICD Code: N17.9 - ACUTE KIDNEY FAILURE, UNSPECIFIED Status: Acute Current Visit: No (2) Chemotherapy adverse reaction SNOMED Code(s): 983372941 ICD Code: T45.1X5A - ADVERSE EFFECT OF ANTINEOPLASTIC AND IMMUNOSUP DRUGS, INIT Status: Acute Current Visit: No Qualifiers: Encounter type: initial encounter Qualified Code(s): T45.1X5A - Adverse effect of antineoplastic and immunosuppressive drugs, initial encounter (3) Dehydration SNOMED Code(s): 53809239 ICD Code: E86.0 - DEHYDRATION Status: Acute Current Visit: No (4) Hypotension SNOMED Code(s): 47668942 ICD Code: I95.9 - HYPOTENSION, UNSPECIFIED Status: Acute Current Visit: No (5) Orthostatic hypotension SNOMED Code(s): 71677179 ICD Code: I95.1 - ORTHOSTATIC HYPOTENSION Status: Acute Current Visit: No (6) Syncope SNOMED Code(s): 374769001 ICD Code: R55 - SYNCOPE AND COLLAPSE Status: Acute Current Visit: No Qualifiers: Syncope type: unspecified Qualified Code(s): R55 - Syncope and collapse Problem List Initiated/Reviewed/Updated: Yes Orders Last 24hrs: Active Orders 24 hr Category Date Time Status Patient Status [ADT] Routine ADT 12/12/17 11:05 Active EKG Documentation Completion [RC] STAT Care 12/12/17 08:02 Active Implanted Port Access [RC] QSHIFT Care 12/12/17 08:03 Active Oxygen Therapy [RC] PRN Care 12/12/17 11:05 Active Up With Assistance [RC] ASDIRECTED Care 12/12/17 11:05 Active VTE/DVT Education [RC] PER UNIT ROUTINE Care 12/12/17 11:05 Active Vital Signs [RC] Q4H Care 12/12/17 11:05 Active OT Evaluation and Treatment [CONS] Routine Cons 12/12/17 11:05 Active PT Evaluation and Treatment [CONS] Routine Cons 12/12/17 11:05 Active Regular Diet [DIET] Diet 12/12/17 Lunch Active Acetaminophen [Tylenol Arthritis] Med 12/12/17 11:12 Ordered 650 mg PO Q4HR PRN Acyclovir [Zovirax] Med 12/12/17 21:00 Active 400 mg PO BID Albuterol [Proventil HFA] Med 12/12/17 11:12 Active 0 gm INH Q4H PRN Aspirin [Halfprin] Med 12/13/17 09:00 Active 81 mg PO DAILY Calcium Carbonate/Vitamin D3 [Calcium 500-Vit D3 400 Med 12/13/17 11:00 Ordered Tablet] 1 tab PO ACLUNCH Cholecalciferol (Vitamin D3) [Vitamin D3] Med 12/13/17 09:00 Active 400 units PO DAILY Cyclophosphamide [Cyclophosphamide] Med 12/12/17 11:15 Pending 400 mg PO WEEKLY Dexamethasone Med 12/15/17 12:00 Active 20 mg PO We@1200 Fludrocortisone [Florinef] Med 12/12/17 18:00 Active 0.1 mg PO BIDMEALS Gabapentin [Neurontin] Med 12/12/17 12:00 Active 600 mg PO TID@0800,1200,2100 Heparin Sodium Med 12/12/17 11:30 Active 5,000 units SUBCUT Q12H Levothyroxine [Synthroid] Med 12/13/17 06:00 Active 100 mcg PO ACBREAKFAST Midodrine Med 12/12/17 17:00 Active 10 mg PO DAILY@0600,1100,1700 Midodrine Med 12/12/17 11:45 Once 10 mg PO ONETIME ONE Multivitamins,Therapeutic [Thera] Med 12/13/17 09:00 Active 1 each PO DAILY Ondansetron [Zofran ODT] Med 12/12/17 11:30 Active 4 mg PO Q8H PRN Ondansetron [Zofran] Med 12/12/17 11:05 Active 4 mg IVPUSH Q6H PRN Prochlorperazine [Compazine] Med 12/12/17 11:45 Active 10 mg PO Q6H PRN Sodium Chloride 0.9% [Normal Saline] 1,000 ml Med 12/12/17 11:15 Active IV ASDIRECTED Timolol [Betimol 0.5% Ophth Soln] Med 12/12/17 21:00 Ordered 1 drop EYERT BID Zoledronic Acid in Water [Reclast] Med 12/12/17 11:15 Pending 1 injection IM .YEARLY atorvaSTATin [Lipitor] Med 12/12/17 21:00 Active 40 mg PO BEDTIME Resuscitation Status Routine Resus Stat 12/12/17 11:05 Ordered Medication Orders Acyclovir (Zovirax) 400 mg PO BID [facility] Albuterol (Proventil Hfa) 0 gm INH Q4H PRN PRN Reason: ASTHMA Aspirin (Halfprin) 81 mg PO DAILY [facility] Atorvastatin Calcium (Lipitor) 40 mg PO BEDTIME [facility] Cholecalciferol (Vitamin D3) 400 units PO DAILY [facility] Dexamethasone (Dexamethasone) 20 mg PO We@1200 [facility] Fludrocortisone Acetate (Florinef) 0.1 mg PO BIDMEALS [facility] Gabapentin (Neurontin) 600 mg PO TID@0800,1200,2100 [facility] Heparin Sodium (Porcine) (Heparin Sodium) 5,000 units SUBCUT Q12H [facility] Sodium Chloride (Normal Saline) 1,000 mls @ 125 mls/hr IV ASDIRECTED [facility] Levothyroxine Sodium (Synthroid) 100 mcg PO ACBREAKFAST [facility] Midodrine (Midodrine) 10 mg PO DAILY@0600,1100,1700 [facility] Midodrine (Midodrine) 10 mg PO ONETIME ONE Stop: 12/12/17 11:46 Multivitamins (Thera) 1 each PO DAILY [facility] Non-Formulary Medication (Acetaminophen [Tylenol Arthritis]) 650 mg PO Q4HR PRN PRN Reason: Pain Non-Formulary Medication (Calcium Carbonate/Vitamin D3 [Calcium 500-Vit D3 400 Tablet]) 1 tab PO ACLUNCH [facility] Non-Formulary Medication (Cyclophosphamide [Cyclophosphamide]) 400 mg PO WEEKLY [facility] Non-Formulary Medication (Timolol [Betimol 0.5% Ophth Soln]) 1 drop EYERT BID [facility] Non-Formulary Medication (Zoledronic Acid In Water [Reclast]) 1 injection IM .YEARLY [facility] Ondansetron HCl (Zofran) 4 mg IVPUSH Q6H PRN PRN Reason: Nausea/Vomiting Ondansetron HCl (Zofran Odt) 4 mg PO Q8H PRN PRN Reason: NAUSEA Prochlorperazine Maleate (Compazine) 10 mg PO Q6H PRN PRN Reason: NAUSEA Assessment/Plan Comment:: Recurrent syncope due to orthostatic hypotension vs dehydration Admit to observation status IVF Continue midodrine Fall precautions Dehydration IVF JEREMY likely pre-renal azotemia IVF BMP q12h Avoid all nephrotoxic Amylodosis on chemotherapy. Last dose on 12/08 Chronic anemia stable h&h monitor closely Regular diet Full code
[2017-12-12] MEDS ORDERED: Gabapentin 300 MG Cap PO SCH (12:00)
[2017-12-12] MEDS ORDERED: Midodrine 2.5 MG Tab PO SCH ×2 (12:00)
[2017-12-12] MEDS: MIDODRINE 10 MG PO SCH ×2 (13:16→17:01)
[2017-12-12] MEDS: FLUDROCORTISONE 0.1 MG PO SCH ×2 (13:17→17:32)
[2017-12-12] MEDS: ACYCLOVIR 400 MG PO SCH ×2 (13:20→21:44)
[2017-12-12] MEDS: Heparin Sodium 5,000 Units/ML Vial SUBCUT SCH ×2 (13:31→23:04)
[2017-12-12] MEDS: Gabapentin 300 MG Cap PO SCH (17:32)
[2017-12-12] MEDS ORDERED: Non-Formulary Medication 1 Each (Timolol [Betimol 0.5% Ophth Soln] 1 DROP) EYERT SCH (21:00)
[2017-12-12] MEDS: ATORVASTATIN 40 MG TAB *PT OWN MED PO SCH (21:44)
[2017-12-13] MEDS: MIDODRINE 10 MG PO SCH ×3 (05:33→16:47)
[2017-12-13] MEDS: LEVOTHYROXINE 100 MCG PO SCH (05:33)
[2017-12-13] MEDS: FLUDROCORTISONE 0.1 MG PO SCH ×2 (08:39→18:08)
[2017-12-13] MEDS: ACYCLOVIR 400 MG PO SCH ×2 (08:41→21:06)
[2017-12-13] MEDS: Cholecalciferol (Vitamin D3) 400 Unit Tab PO SCH (08:43)
[2017-12-13] MEDS: Multivitamins,Therapeutic Tab PO SCH (08:43)
[2017-12-13] MEDS: Gabapentin 300 MG Cap PO SCH ×3 (08:46→18:07)
[2017-12-13] MEDS: Sodium Chloride 0.9% 10 ML Syringe FLUSH PRN (08:47)
[2017-12-13] MEDS ORDERED: CALCIUM CARBONATE PO SCH (11:00)
[2017-12-13] MEDS ORDERED: VITAMIN D3 PO SCH (11:00)
[2017-12-13] MEDS ORDERED: [UNRECOGNIZED DRUG - OTHER] PO SCH (11:00)
--- NOTE | 2017-12-13 11:36 | PCM.PN ---
- General Info Date of Service: 12/13/17 Admission Dx/Problem (Free Text): Admission Diagnosis/Problem Admission Diagnosis/Problem Orthostatic hypotension Subjective Update: Patient is 72 y/o F with PMH of amyloidosis and had chemotherapy injection on Wednesday, h/o orthostasis hypotension on midodrine. She presented to the ER following multiple syncope this morning x 4. She was orthostatic and was subsequently admitted. She was seen today and examined. No acute event overnight. Patient supine BP 166 /90. She is still how ever orthostatic. Functional Status: Reports: Pain Controlled - Review of Systems General: Reports: No Symptoms HEENT: Reports: No Symptoms Pulmonary: Reports: No Symptoms Cardiovascular: Reports: No Symptoms Gastrointestinal: Reports: No Symptoms Genitourinary: Reports: No Symptoms Musculoskeletal: Reports: No Symptoms Skin: Reports: No Symptoms Neurological: Reports: No Symptoms Psychiatric: Reports: No Symptoms - Patient Data Vitals - Most Recent: Last Vital Signs Temp 98.7 F 12/13/17 10:15 Pulse 94 12/13/17 10:15 Resp 20 12/13/17 10:15 BP 145/75 H 12/13/17 10:15 Pulse Ox 98 12/13/17 10:15 Orthostatic Blood Pressure [ 87/45 Standing] Orthostatic Blood Pressure [ 131/67 Sitting] Orthostatic Blood Pressure [ 145/75 Supine] Weight - Most Recent: 104 lb 12.8 oz I&O - Last 24 Hours: Intake & Output 12/12/17 12/13/17 12/13/17 22:59 06:59 14:59 Intake Total 400 500 Output Total 1100 500 Balance -700 0 Med Orders - Current: Current Medications Albuterol (Proventil Hfa) 0 gm INH Q4H PRN PRN Reason: ASTHMA Aspirin (Halfprin) 81 mg PO DAILY [facility] Last Admin: 12/13/17 08:40 Dose: 81 mg Cholecalciferol (Vitamin D3) 400 units PO DAILY [facility] Last Admin: 12/13/17 08:43 Dose: Not Given Dexamethasone (Dexamethasone) 20 mg PO We@1200 [facility] Fludrocortisone Acetate (Florinef) 0.1 mg PO BIDMEALS [facility] Last Admin: 12/13/17 08:39 Dose: 0.1 mg Gabapentin (Neurontin) 600 mg PO TID@0800,1200,1800 [facility] Last Admin: 12/13/17 08:46 Dose: 600 mg Heparin Sodium (Porcine) (Heparin Sodium) 5,000 units SUBCUT Q12H [facility] Last Admin: 12/12/17 23:04 Dose: Not Given Levothyroxine Sodium (Synthroid) 100 mcg PO ACBREAKFAST [facility] Last Admin: 12/13/17 05:33 Dose: 100 mcg Multivitamins (Thera) 1 each PO DAILY [facility] Last Admin: 12/13/17 08:43 Dose: Not Given Non-Formulary Medication (Acetaminophen [Tylenol Arthritis]) 650 mg PO Q4HR PRN PRN Reason: Pain Non-Formulary Medication (Calcium Carbonate/Vitamin D3 [Calcium 500-Vit D3 400 Tablet]) 1 tab PO ACLUNCH [facility] Non-Formulary Medication (Cyclophosphamide [Cyclophosphamide]) 400 mg PO WEEKLY [facility] Non-Formulary Medication (Timolol [Betimol 0.5% Ophth Soln]) 1 drop EYERT BID [facility] Midodrine 10 Mg (Own Med) 0 each PO DAILY@0600,1100,1700 [facility] Last Admin: 12/13/17 05:33 Dose: 1 each Ondansetron HCl (Zofran) 4 mg IVPUSH Q6H PRN PRN Reason: Nausea/Vomiting Ondansetron HCl (Zofran Odt) 4 mg PO Q8H PRN PRN Reason: NAUSEA Acyclovir 400 Mg Tab (*Pt Own Med*) 0 each PO BID [facility] Last Admin: 12/13/17 08:41 Dose: 1 each Atorvastatin 40 Mg (Tab *Pt Own Med*) 0 each PO BEDTIME [facility] Last Admin: 12/12/17 21:44 Dose: 1 each Prochlorperazine Maleate (Compazine) 10 mg PO Q6H PRN PRN Reason: NAUSEA Sodium Chloride (Saline Flush) 10 ml FLUSH ASDIRECTED PRN PRN Reason: Keep Vein Open Last Admin: 12/13/17 08:47 Dose: 10 ml Discontinued Medications Gabapentin (Neurontin) 600 mg PO TID@0800,1200,2100 [facility] Last Admin: 12/12/17 13:30 Dose: 600 mg Sodium Chloride (Normal Saline) 1,000 mls @ 999 mls/hr IV .BOLUS ONE Stop: 12/12/17 09:03 Last Admin: 12/12/17 08:10 Dose: 999 mls/hr Sodium Chloride (Normal Saline) 1,000 mls @ 125 mls/hr IV ASDIRECTED [facility] Stop: 12/13/17 00:00 Last Infusion: 12/12/17 21:45 Dose: Infused Midodrine (Midodrine) 10 mg PO 0600,1200,1800 [facility] Midodrine (Midodrine) 10 mg PO DAILY@0600,1200,1700 [facility] Midodrine (Midodrine) 10 mg PO DAILY@0600,1100,1700 [facility] Last Admin: 12/12/17 17:01 Dose: 10 mg Midodrine (Midodrine) 10 mg PO ONETIME ONE Stop: 12/12/17 11:46 Last Admin: 12/12/17 13:15 Dose: 10 mg Non-Formulary Medication (Zoledronic Acid In Water [Reclast]) 1 injection IM .YEARLY [facility] - Exam Quality Assessment: DVT Prophylaxis General: Alert, Oriented HEENT: Pupils Equal, Pupils Reactive, EOMI, Mucous Membr. Moist/[place] Neck: Supple Lungs: Clear to Auscultation, Normal Respiratory Effort Cardiovascular: Regular Rate, Regular Rhythm GI/Abdominal Exam: Normal Bowel Sounds, Soft, Non-Tender, No Organomegaly, No Distention, No Abnormal Bruit, No Mass, Pelvis Stable (Female) Exam: Normal External Exam, Normal Speculum Exam, Normal Bimanual Exam Back Exam: Normal Inspection, Full Range of Motion Extremities: Normal Inspection, Normal Range of Motion, Non-Tender, No Pedal Edema, Normal Capillary Refill Skin: Warm, Dry, Intact Wound/Incisions: Healing Well Neurological: No New Focal Deficit Psy/Mental Status: Alert, Normal Affect, Normal Mood - Problem List & Annotations (1) Acute renal failure SNOMED Code(s): 56883453 Code(s): N17.9 - ACUTE KIDNEY FAILURE, UNSPECIFIED Status: Acute Current Visit: No (2) Chemotherapy adverse reaction SNOMED Code(s): 348007688 Code(s): T45.1X5A - ADVERSE EFFECT OF ANTINEOPLASTIC AND IMMUNOSUP DRUGS, INIT Status: Acute Current Visit: No Qualifiers: Encounter type: initial encounter Qualified Code(s): T45.1X5A - Adverse effect of antineoplastic and immunosuppressive drugs, initial encounter (3) Dehydration SNOMED Code(s): 02964832 Code(s): E86.0 - DEHYDRATION Status: Acute Current Visit: No (4) Hypotension SNOMED Code(s): 65928626 Code(s): I95.9 - HYPOTENSION, UNSPECIFIED Status: Acute Current Visit: No (5) Orthostatic hypotension SNOMED Code(s): 93910734 Code(s): I95.1 - ORTHOSTATIC HYPOTENSION Status: Acute Current Visit: No (6) Syncope SNOMED Code(s): 193806733 Code(s): R55 - SYNCOPE AND COLLAPSE Status: Acute Current Visit: No Qualifiers: Syncope type: unspecified Qualified Code(s): R55 - Syncope and collapse - Problem List Review Problem List Initiated/Reviewed/Updated: Yes - My Orders Last 24 Hours: My Active Orders 12/12/17 11:05 Patient Status [ADT] Routine Oxygen Therapy [RC] PRN Up With Assistance [RC] ASDIRECTED VTE/DVT Education [RC] PER UNIT ROUTINE Vital Signs [RC] Q4H OT Evaluation and Treatment [CONS] Routine PT Evaluation and Treatment [CONS] Routine Ondansetron [Zofran] 4 mg IVPUSH Q6H PRN Resuscitation Status Routine 12/12/17 11:12 Acetaminophen [Tylenol Arthritis] 650 mg PO Q4HR PRN Albuterol [Proventil HFA] 0 gm INH Q4H PRN 12/12/17 11:15 Cyclophosphamide [Cyclophosphamide] 400 mg PO WEEKLY 12/12/17 11:30 Heparin Sodium 5,000 units SUBCUT Q12H Ondansetron [Zofran ODT] 4 mg PO Q8H PRN 12/12/17 11:45 Prochlorperazine [Compazine] 10 mg PO Q6H PRN 12/12/17 11:59 Sodium Chloride 0.9% [Saline Flush] 10 ml FLUSH ASDIRECTED PRN 12/12/17 13:00 Aspirin [Halfprin] 81 mg PO DAILY Fludrocortisone [Florinef] 0.1 mg PO BIDMEALS Patient's Own Medication [Ptom] 0 each PO BID 12/12/17 18:00 Gabapentin [Neurontin] 600 mg PO TID@0800,1200,1800 12/12/17 21:00 Patient's Own Medication [Ptom] 0 each PO BEDTIME Timolol [Betimol 0.5% Ophth Soln] 1 drop EYERT BID 12/12/17 Lunch Regular Diet [DIET] 12/13/17 06:00 Levothyroxine [Synthroid] 100 mcg PO ACBREAKFAST Non-Formulary Medication [NF Drug] 0 each PO DAILY@0600,1100,1700 12/13/17 09:00 Cholecalciferol (Vitamin D3) [Vitamin D3] 400 units PO DAILY Multivitamins,Therapeutic [Thera] 1 each PO DAILY 12/13/17 11:00 Calcium Carbonate/Vitamin D3 [Calcium 500-Vit D3 400 Tablet] 1 tab PO ACLUNCH 12/15/17 12:00 Dexamethasone 20 mg PO We@1200 - Plan Plan:: Recurrent syncope due to orthostatic hypotension vs dehydration d/c IVF Continue midodrine to 10 mg tid support stocking Fall precautions Dehydration Resolved JEREMY likely pre-renal azotemia IVF BMP q12h Avoid all nephrotoxic Amylodosis on chemotherapy. Last dose on 12/08 Chronic anemia stable h&h monitor closely Regular diet Full code
[2017-12-13] MEDS: Heparin Sodium 5,000 Units/ML Vial SUBCUT SCH ×2 (12:34→23:40)
[2017-12-13 13:00] LABS: ANION GAP 9.4
[2017-12-13] MEDS: ATORVASTATIN 40 MG TAB *PT OWN MED PO SCH (21:07)
--- NOTE | 2017-12-14 00:27 | EKG ---
12/12/2017 - ABEBA ESTRELLA TIME: 8:10 a.m. FINDINGS: As per my reading, sinus rhythm at 77, first-degree AV block. [facility] /[id number]
[2017-12-14] MEDS: LEVOTHYROXINE 100 MCG PO SCH (06:22)
[2017-12-14] MEDS: MIDODRINE 10 MG PO SCH ×2 (06:22→11:29)
[2017-12-14] MEDS: FLUDROCORTISONE 0.1 MG PO SCH (08:18)
[2017-12-14] MEDS: Gabapentin 300 MG Cap PO SCH ×2 (08:18→11:29)
[2017-12-14] MEDS: Cholecalciferol (Vitamin D3) 400 Unit Tab PO SCH (08:20)
[2017-12-14] MEDS: Multivitamins,Therapeutic Tab PO SCH (08:20)
[2017-12-14] MEDS: ACYCLOVIR 400 MG PO SCH (08:20)
[2017-12-14] MEDS: Sodium Chloride 0.9% 10 ML Syringe FLUSH PRN (10:54)
[2017-12-14 11:12] VITALS: BP 131/65
--- NOTE | 2017-12-14 11:27 | PCM.DCSUM1 ---
Discharge Summary - Hospital Course HPI Initial Comments: Patient is 72 y/o F with PMH of amyloidosis and had chemotherapy injection on Wednesday, h/o orthostasis hypotension on midodrine. She presented to the ER following multiple syncope this x 4. She was positive for orthostatic and was subsequently admitted. She received IVF and continued on her midodrine. Her symptoms improved. She did well with PT/OT. Patient did not experience anymore syncope since admission. She is being discharge home to follow with PCP on Wednesday. She is advised to use a compressor stockings and also ensure adequate oral intake. She was also advised on getting up slowly from the lying and sitting position. Diagnosis: Stroke: No - Discharge Data Discharge Date: 12/14/17 Discharge Disposition: Home, Self-Care 01 Condition: Good - Discharge Diagnosis/Problem(s) (1) Acute renal failure SNOMED Code(s): 49229918 ICD Code: N17.9 - ACUTE KIDNEY FAILURE, UNSPECIFIED Status: Acute Current Visit: No (2) Chemotherapy adverse reaction SNOMED Code(s): 108755663 ICD Code: T45.1X5A - ADVERSE EFFECT OF ANTINEOPLASTIC AND IMMUNOSUP DRUGS, INIT Status: Acute Current Visit: No Qualifiers: Encounter type: initial encounter Qualified Code(s): T45.1X5A - Adverse effect of antineoplastic and immunosuppressive drugs, initial encounter (3) Dehydration SNOMED Code(s): 15737447 ICD Code: E86.0 - DEHYDRATION Status: Acute Current Visit: No (4) Hypotension SNOMED Code(s): 94580430 ICD Code: I95.9 - HYPOTENSION, UNSPECIFIED Status: Acute Current Visit: No (5) Orthostatic hypotension SNOMED Code(s): 73104322 ICD Code: I95.1 - ORTHOSTATIC HYPOTENSION Status: Acute Current Visit: No (6) Syncope SNOMED Code(s): 770564467 ICD Code: R55 - SYNCOPE AND COLLAPSE Status: Acute Current Visit: No Qualifiers: Syncope type: unspecified Qualified Code(s): R55 - Syncope and collapse - Patient Summary/Data Consults: Consultations 12/12/17 11:05 OT Evaluation and Treatment [CONS] Routine PT Evaluation and Treatment [CONS] Routine Recommended Follow-up Testing/Procedures: Follow with PCP 3 days - Patient Instructions Diet: Heart Healthy Diet Activity: As Tolerated Notify Provider of: Fever, Increased Pain, Swelling and Redness, Nausea and/or Vomiting - Discharge Plan *PRESCRIPTION DRUG MONITORING PROGRAM REVIEWED*: No *COPY OF PRESCRIPTION DRUG MONITORING REPORT IN PATIENT NERISSA: No Prescriptions/Med Rec: Potassium Chloride [Klor-Con 10] 20 meq PO DAILY 14 Days #14 tab.er Home Medications: Home Meds Gabapentin [Neurontin] 600 mg PO TID 04/15/15 [History] Multivitamin [Multiple Vitamins] 1 tab PO DAILY 04/15/15 [History] Timolol [Betimol 0.5% Ophth Soln] 1 drop EYERT BID 04/15/15 [History] atorvaSTATin [Lipitor] 40 mg PO BEDTIME 04/15/15 [History] Cholecalciferol (Vitamin D3) [Vitamin D3] 400 units PO DAILY 04/16/15 [History] Calcium Carbonate/Vitamin D3 [Calcium 500-Vit D3 400 Tablet] 1 tab PO ACLUNCH [History] Levothyroxine [Synthroid] 100 mcg PO ACBREAKFAST 10/24/15 [History] Acetaminophen [Tylenol Arthritis] 650 mg PO Q4HR PRN 08/10/16 [History] Albuterol [Ventolin HFA] 2 puff INH Q4H PRN 11/23/16 [History] Ondansetron [Zofran] 1 tab PO Q8H PRN 11/23/16 [History] Zoledronic Acid in Water [Reclast] 1 injection IM .YEARLY 11/23/16 [History] Prochlorperazine Maleate [Compazine] 10 mg PO Q6HR PRN 07/08/17 [History] Fludrocortisone [Florinef] 0.1 mg PO BIDMEALS 15 Days #30 tablet 07/11/17 [Rx] Midodrine 10 mg PO 0600,1200,1800 30 Days #90 tablet 07/11/17 [Rx] Acyclovir [Zovirax] 400 mg PO BID 12/12/17 [History] Aspirin [Halfprin] 81 mg PO DAILY 12/12/17 [History] Cyclophosphamide 400 mg PO WEEKLY 12/12/17 [History] Dexamethasone 20 mg PO WEEKLY 12/12/17 [History] Sulfamethoxazole/Trimethoprim [Sulfamethoxazole-Tmp Ds Tablet] 800 mg PO ASDIRECTED 12/12/17 [History] Potassium Chloride [Klor-Con 10] 20 meq PO DAILY 14 Days #14 tab.er 12/14/17 [Rx ] Patient Handouts: Orthostatic Hypotension, Syncope, [id number] Forms: ED Department Discharge - Discharge Summary/Plan Comment DC Time >30 min.: Yes - General Info Admission Dx/Problem (Free Text: Admission Diagnosis/Problem Admission Diagnosis/Problem Orthostatic hypotension Subjective Update: Patient is 72 y/o F with PMH of amyloidosis and had chemotherapy injection on Wednesday, h/o orthostasis hypotension on midodrine. She presented to the ER following multiple syncope this x 4. She was positive for orthostatic and was subsequently admitted. She received IVF and continued on her midodrine. Her symptoms improved. She did well with PT/OT. Patient did not experience anymore syncope since admission. She is being discharge home to follow with PCP on Wednesday. She is advised to use a compressor stockings and also ensure adequate oral intake. She was also advised on getting up slowly from the lying and sitting position. Functional Status: Reports: Pain Controlled - Review of Systems General: Reports: No Symptoms HEENT: Reports: No Symptoms Pulmonary: Reports: No Symptoms Cardiovascular: Reports: No Symptoms Gastrointestinal: Reports: No Symptoms Genitourinary: Reports: No Symptoms Musculoskeletal: Reports: No Symptoms Skin: Reports: No Symptoms Neurological: Reports: No Symptoms Psychiatric: Reports: No Symptoms - Patient Data Vitals - Most Recent: Last Vital Signs Temp 99.2 F 12/14/17 11:11 Pulse 91 12/14/17 11:11 Resp 20 12/14/17 11:11 BP 131/65 12/14/17 11:11 Pulse Ox 100 12/14/17 11:11 Orthostatic Blood Pressure [ 124/68 Standing] Orthostatic Blood Pressure [ 154/74 Sitting] Orthostatic Blood Pressure [ 155/84 Supine] Weight - Most Recent: 104 lb 12.8 oz I&O - Last 24 hours: Intake & Output 12/13/17 12/14/17 12/14/17 22:59 06:59 14:59 Intake Total 1540 250 200 Output Total 1950 1300 700 Balance -410 -9652 -044 Lab Results - Last 24 hrs: Laboratory Results - last 24 hr 12/13/17 Range/Units 12:34 Sodium 139 (135-145) mmol/L Potassium 3.4 L (3.6-5.0) mmol/L Chloride 112 H (101-111) mmol/L Carbon Dioxide 21.0 (21.0-31.0) mmol/L Anion Gap 9.4 BUN 19 H (7-18) mg/dL Creatinine 1.8 H (0.6-1.3) mg/dL Est Cr Clr Drug Dosing 20.89 mL/min Estimated GFR (MDRD) 28 Glucose 109 H (74-105) mg/dL Calcium 7.9 L (8.4-10.2) mg/dl Med Orders - Current: Current Medications Albuterol (Proventil Hfa) 0 gm INH Q4H PRN PRN Reason: ASTHMA Aspirin (Halfprin) 81 mg PO DAILY [facility] Last Admin: 12/14/17 08:18 Dose: 81 mg Cholecalciferol (Vitamin D3) 400 units PO DAILY [facility] Last Admin: 12/14/17 08:20 Dose: Not Given Dexamethasone (Dexamethasone) 20 mg PO We@1200 [facility] Fludrocortisone Acetate (Florinef) 0.1 mg PO BIDMEALS [facility] Last Admin: 12/14/17 08:18 Dose: 0.1 mg Gabapentin (Neurontin) 600 mg PO TID@0800,1200,1800 [facility] Last Admin: 12/14/17 08:18 Dose: 600 mg Heparin Sodium (Porcine) (Heparin Sodium) 5,000 units SUBCUT Q12H [facility] Last Admin: 12/13/17 23:40 Dose: Not Given Heparin Sodium (Porcine) (Heparin Lock Flush 100 Units/Ml) 500 units FLUSH ASDIRECTED PRN PRN Reason: PORT FLUSH Levothyroxine Sodium (Synthroid) 100 mcg PO ACBREAKFAST [facility] Last Admin: 12/14/17 06:22 Dose: 100 mcg Multivitamins (Thera) 1 each PO DAILY [facility] Last Admin: 12/14/17 08:20 Dose: Not Given Non-Formulary Medication (Acetaminophen [Tylenol Arthritis]) 650 mg PO Q4HR PRN PRN Reason: Pain Non-Formulary Medication (Calcium Carbonate/Vitamin D3 [Calcium 500-Vit D3 400 Tablet]) 1 tab PO ACLUNCH [facility] Non-Formulary Medication (Cyclophosphamide [Cyclophosphamide]) 400 mg PO WEEKLY [facility] Non-Formulary Medication (Timolol [Betimol 0.5% Ophth Soln]) 1 drop EYERT BID [facility] Midodrine 10 Mg (Own Med) 0 each PO DAILY@0600,1100,1700 [facility] Last Admin: 12/14/17 06:22 Dose: 1 each Ondansetron HCl (Zofran) 4 mg IVPUSH Q6H PRN PRN Reason: Nausea/Vomiting Ondansetron HCl (Zofran Odt) 4 mg PO Q8H PRN PRN Reason: NAUSEA Acyclovir 400 Mg Tab (*Pt Own Med*) 0 each PO BID [facility] Last Admin: 12/14/17 08:20 Dose: 1 each Atorvastatin 40 Mg (Tab *Pt Own Med*) 0 each PO BEDTIME [facility] Last Admin: 12/13/17 21:07 Dose: 1 each Potassium Chloride (Klor-Con 10) 20 meq PO BIDMEALS [facility] Prochlorperazine Maleate (Compazine) 10 mg PO Q6H PRN PRN Reason: NAUSEA Sodium Chloride (Saline Flush) 10 ml FLUSH ASDIRECTED PRN PRN Reason: Keep Vein Open Last Admin: 12/13/17 08:47 Dose: 10 ml Discontinued Medications Gabapentin (Neurontin) 600 mg PO TID@0800,1200,2100 [facility] Last Admin: 12/12/17 13:30 Dose: 600 mg Sodium Chloride (Normal Saline) 1,000 mls @ 999 mls/hr IV .BOLUS ONE Stop: 12/12/17 09:03 Last Admin: 12/12/17 08:10 Dose: 999 mls/hr Sodium Chloride (Normal Saline) 1,000 mls @ 125 mls/hr IV ASDIRECTED [facility] Stop: 12/13/17 00:00 Last Infusion: 12/12/17 21:45 Dose: Infused Midodrine (Midodrine) 10 mg PO 0600,1200,1800 [facility] Midodrine (Midodrine) 10 mg PO DAILY@0600,1200,1700 [facility] Midodrine (Midodrine) 10 mg PO DAILY@0600,1100,1700 [facility] Last Admin: 12/12/17 17:01 Dose: 10 mg Midodrine (Midodrine) 10 mg PO ONETIME ONE Stop: 12/12/17 11:46 Last Admin: 12/12/17 13:15 Dose: 10 mg Non-Formulary Medication (Zoledronic Acid In Water [Reclast]) 1 injection IM .YEARLY [facility] - Exam Quality Assessment: Reports: DVT Prophylaxis General: Reports: Alert, Oriented HEENT: Reports: Pupils Equal, Pupils Reactive, EOMI, Mucous Membr. Moist/Walls Neck: Reports: Supple Lungs: Reports: Clear to Auscultation, Normal Respiratory Effort Cardiovascular: Reports: Regular Rate, Regular Rhythm GI/Abdominal Exam: Normal Bowel Sounds, Soft, Non-Tender, No Organomegaly, No Distention, No Abnormal Bruit, No Mass, Pelvis Stable (Female) Exam: Normal External Exam, Normal Speculum Exam, Normal Bimanual Exam Rectal (Female) Exam: Normal Exam, Normal Rectal Tone Back Exam: Reports: Normal Inspection, Full Range of Motion Extremities: Normal Inspection, Normal Range of Motion, Non-Tender, No Pedal Edema, Normal Capillary Refill Skin: Reports: Warm, Dry, Intact Wound/Incisions: Reports: Healing Well Neurological: Reports: No New Focal Deficit Psy/Mental Status: Reports: Alert, Normal Affect, Normal Mood
[2017-12-14] MEDS: Heparin Sodium 5,000 Units/ML Vial SUBCUT SCH (11:30)
[2017-12-14] MEDS ORDERED: Potassium Chloride 10 MEQ Tab.ER PO SCH (12:45)
[2017-12-15] MEDS ORDERED: Dexamethasone 4 MG Tab PO SCH (12:00)
== END 2017-12-14 13:35 | disposition home or self-care (01) ==
LOC: DL.ED 07:52 → DL.MS 10:06 → UNDOADMOB 10:06 → DL.MS 11:05
PROVIDERS: ADMIT Student in an Organized Health Care Education/Training Program; ATTEND Student in an Organized Health Care Education/Training Program
DX: I95.1 Orthostatic hypotension (principal); E86.0 Dehydration; N17.9 Acute kidney failure, unspecified; D64.9 Anemia, unspecified; E85.9 Amyloidosis, unspecified; Z79.899 Other long term (current) drug therapy; Z92.21 Personal history of antineoplastic chemotherapy
CPT/HCPCS: 36415; 71101; 80048; 80053; 81001; 84484; 85025; 93005; 93010; 96360; 96361; 96372; 97161; 97165; 99285; A9270; G0378; J1642; J1644; J7030; J7050; 99284

== ENCOUNTER 2019-09-06 13:52 | Emergency (ER) | payer MEDICARE, BC ==
[2019-09-06 14:06] VITALS: BP 178/74; PULSE 85
--- NOTE | 2019-09-06 14:08 | EDM.PDOC ---
ED HPI GENERAL MEDICAL PROBLEM - General Chief Complaint: Lower Extremity Injury/Pain Stated Complaint: HURT LEFT ANKLE Time Seen by Provider: 09/06/19 14:07 Source of Information: Reports: Patient, Old Records, RN, RN Notes Reviewed History Limitations: Reports: No Limitations - History of Present Illness INITIAL COMMENTS - FREE TEXT/NARRATIVE: Pt presents to ER from home by POV with c/o left ankle pain sustained this morning at 0930HRS when she was outside and rolled her left ankle, states that she went inside and put ice on it but it is still painful, pt has partial wt bearing to ankle. Denies any other injury. Onset: Today, Sudden Duration: Constant Location: Reports: Lower Extremity, Left Quality: Reports: Ache Severity: Severe Improves with: Reports: Immobilization Worsens with: Reports: Movement Associated Symptoms: Reports: No Other Symptoms Left Ankle Pain Score (Numeric/FACES): 8 - Related Data Allergies Allergy/AdvReac Type Severity Reaction Status Date / Time Iodinated Contrast Media Allergy Intermediate Hives Verified 08/08/18 09:29 [Iodinated Contrast- Oral and IV Dye] adhesive tape Allergy Mild Rash Verified 08/08/18 09:29 benzalkonium chloride Allergy Mild Rash Verified 08/08/18 09:29 [From Neosporin Nickolas To Go] pramoxine HCl Allergy Mild Rash Verified 08/08/18 09:29 [From Neosporin Nickolas To Go] Home Meds: Home Meds Gabapentin [Neurontin] 600 mg PO BID 04/15/15 [History] Multivitamin [Multiple Vitamins] 1 tab PO DAILY 04/15/15 [History] Timolol [Betimol 0.5% Ophth Soln] 1 drop EYERT BID 04/15/15 [History] atorvaSTATin [Lipitor] 40 mg PO BEDTIME 04/15/15 [History] Calcium Carbonate/Vitamin D3 [Calcium 500-Vit D3 400 Tablet] 1 tab PO ACLUNCH [History] Levothyroxine [Synthroid] 112 mcg PO ACBREAKFAST 10/24/15 [History] Albuterol [Ventolin HFA] 2 puff INH Q4H PRN 11/23/16 [History] Fludrocortisone [Florinef] 0.1 mg PO BIDMEALS 15 Days #30 tablet 07/11/17 [Rx] Aspirin [Halfprin] 81 mg PO DAILY 12/12/17 [History] Potassium Chloride [Klor-Con 10] 20 meq PO DAILY 14 Days #14 tab.er 12/14/17 [Rx ] Furosemide [Lasix] 20 mg PO DAILY 08/01/18 [History] Metoprolol Succinate [Toprol XL] 25 mg PO DAILY 08/01/18 [History] Fluticasone Propionate [Flonase Allergy Relief] 1 spray INH DAILY 08/08/18 [ History] Midodrine 10 mg PO BID 08/08/18 [History] Past Medical History HEENT History: Reports: Cataract, Glaucoma, Other (See Below) Other HEENT History: dry eye disease, Lichen Planus Cardiovascular History: Reports: Afib, Arrhythmia, High Cholesterol Respiratory History: Reports: Asthma, Bronchitis, Recurrent, Other (See Below) Other Respiratory History: LUNG NODULES Gastrointestinal History: Reports: Cholelithiasis, Chronic Constipation, Colon Polyp, Diverticulosis, GERD Genitourinary History: Reports: Other (See Below) Other Genitourinary History: kidney disease-amyloidosis REGULATED PROGRAM MANAGER History: Reports: , Other (See Below) Other REGULATED PROGRAM MANAGER History: lichen sclerosus(vulva) Musculoskeletal History: Reports: Arthritis, Fracture, Osteoarthritis, Osteoporosis, Other (See Below) Other Musculoskeletal History: DJD. HX OF RIGHT HIP FRACTURE Neurological History: Reports: CVA, Migraines, TIA, Other (See Below) Other Neuro History: restless legs Psychiatric History: Reports: Anxiety Endocrine/Metabolic History: Reports: Hypothyroidism, Osteoporosis Hematologic History: Reports: Anemia, B12 Deficiency, Other (See Below) Other Hematologic History: LIGHT CHAIN AMYLOIDOSIS Immunologic History: Reports: None Oncologic (Cancer) History: Reports: Breast Dermatologic History: Reports: None - Infectious Disease History Infectious Disease History: Reports: Chicken Pox, Measles, Mumps, Pertussis ( Whooping Cough) - Past Surgical History Head Surgeries/Procedures: Reports: None HEENT Surgical History: Reports: Cataract Surgery, Laser Surgery Cardiovascular Surgical History: Reports: None Respiratory Surgical History: Reports: None GI Surgical History: Reports: Colonoscopy, EGD, Polypectomy Female Surgical History: Reports: Mastectomy Other Female Surgeries/Procedures: LEFT SIDED MASTECTOMY Endocrine Surgical History: Reports: None Neurological Surgical History: Reports: None Musculoskeletal Surgical History: Reports: Other (See Below) Other Musculoskeletal Surgeries/Procedures:: Right hip fracture with repair, nail placed. left great screws placed with fusion, pin in right foot above right great toe for bunyon. right hand two knuckles replaced. Oncologic Surgical History: Reports: Mastectomy, Other (See Below) Other Oncologic Surgeries/Procedures: Left breast mastectomy Dermatological Surgical History: Reports: Skin Biopsy Social & Family History - Family History Family Medical History: Noncontributory - Caffeine Use Caffeine Use: Reports: None Other Caffeine Use: 1 CUP OF TEA OR COFFEE, OCCASIONALLY - Living Situation & Occupation Living situation: Reports: , with Spouse Occupation: Retired Review of Systems - Review of Systems Review Of Systems: Comprehensive ROS is negative, except as noted in HPI. ED EXAM, GENERAL - Physical Exam Exam: See Below Exam Limited By: No Limitations General Appearance: Alert, No Apparent Distress Respiratory/Chest: No Respiratory Distress Cardiovascular: Normal Peripheral Pulses Back Exam: Normal Inspection Extremities: No Pedal Edema, Normal Capillary Refill, Joint Swelling (Mild, left ankle and lateral foot, tender overlying proximal 5th MT region, skin is intact.) Neurological: Alert, Oriented, No Motor/Sensory Deficits Psychiatric: Normal Mood Skin Exam: Warm, Dry, Intact ED TRAUMA EXTREMITY PROCEDURES - Splinting Left Lower Extremity Splint Site: Left lower leg/foot Pre-Procedure NV Status: Normal Post-Procedure NV Status: Normal Splint Material: Fiberglass Splint Design: Posterior Applied & Form Fitted By: Nurse Provider Post-Splint Application NV Check: NV Status Normal, Good Position Complications: No Course - Vital Signs Last Recorded V/S: Last Vital Signs Temp 99.5 F 09/06/19 13:58 Pulse 85 09/06/19 13:58 Resp 18 09/06/19 13:58 BP 178/74 H 09/06/19 13:58 Pulse Ox 94 L 09/06/19 13:58 - Radiology Interpretation Free Text/Narrative:: XR Left ankle: Acute nondisplaced fracture 5th MT per Rad. report. - Re-Assessments/Exams Free Text/Narrative Re-Assessment/Exam: 09/06/19 14:38 Pt declines pain medication. She has crutches at home already. Departure - Departure Time of Disposition: 14:39 Disposition: Home, Self-Care 01 Condition: Good Clinical Impression: Nondisplaced fracture of fifth left metatarsal bone Qualifiers: Encounter type: initial encounter Fracture type: closed Qualified Code(s): S92.355A - Nondisplaced fracture of fifth metatarsal bone, left foot, initial encounter for closed fracture - Discharge Information *PRESCRIPTION DRUG MONITORING PROGRAM REVIEWED*: Not Applicable *COPY OF PRESCRIPTION DRUG MONITORING REPORT IN PATIENT NERISSA: Not Applicable Instructions: Metatarsal Fracture Forms: ED Department Discharge Additional Instructions: Do not remove splint. Use crutches to be non-weight bearing on left foot. Rest, ice pack, and elevate left foot to reduce pain and swelling. Call [phone] to schedule an orthopedic or podiatry appointment with [facility]. Sepsis Event Note (ED) - Evaluation Sepsis Screening Result: No Definite Risk - Focused Exam Vital Signs: Vital Signs Temp Pulse Resp BP Pulse Ox 09/06/19 13:58 99.5 F 85 18 178/74 H 94 L
--- NOTE | 2019-09-06 14:32 | CR ---
EXAMINATION: Ankle Min 3V Lt SEX: Female AGE: 74 years CLINICAL HISTORY: 74-year-old female with painful left ankle ("rolled") Interpretation: Bimalleolar soft tissue swelling, mild. Prominent heel spurs at the insertion Achilles tendon and plantar aponeurosis on the os calcis. No sign of acute ankle fracture or dislocation. Evidence of previous fusion (2 orthopedic screws) first metatarsal phalangeal joint great toe. Note: Acute, nondisplaced transverse FRACTURE base of the fifth metatarsal. CONCLUSION: Acute nondisplaced fracture fifth metatarsal left foot.
== END 2019-09-06 15:01 | disposition home or self-care (01) ==
LOC: DL.ED 13:52
DX: S92.355A Nondisplaced fracture of fifth metatarsal bone, left foot, initial encounter for closed fracture (principal); I48.91 Unspecified atrial fibrillation; E78.00 Pure hypercholesterolemia, unspecified; J45.909 Unspecified asthma, uncomplicated; E03.9 Hypothyroidism, unspecified; F41.9 Anxiety disorder, unspecified; Z91.041 Radiographic dye allergy status; Z91.048 Other nonmedicinal substance allergy status; Z88.8 Allergy status to other drugs, medicaments and biological substances; Z79.899 Other long term (current) drug therapy; Z79.82 Long term (current) use of aspirin; Z86.73 Personal history of transient ischemic attack (TIA), and cerebral infarction without residual deficits; X50.1XXA Overexertion from prolonged static or awkward postures, initial encounter
CPT/HCPCS: 29515; 73610-LT; 99283-25; 99284

== ENCOUNTER 2020-09-24 12:27 | Emergency (ER) | payer MEDICARE, BC ==
[2020-09-24 12:49] VITALS: BP 169/82; PULSE 85
--- NOTE | 2020-09-24 13:14 | CR ---
EXAMINATION: Foot Comp Min 3V Rt SEX: Female AGE: 75 years CLINICAL HISTORY: 75-year-old female with pain right foot ("twisting" injury). Interpretation: Abnormal. *Acute, nondisplaced transverse FRACTURE base of the fifth metatarsal (overlying soft tissue swelling). Generalized osteopenia. No sign of other fracture or dislocation right foot. Tiny heel spurs insertion plantar aponeurosis and Achilles tendon on the os calcis. Evidence of previous orthopedic surgery (wire) and distal first metatarsal and chronic severe arthritic degenerative changes first metatarsophalangeal joint.
--- NOTE | 2020-09-24 13:30 | EDM.PDOC ---
ED HPI GENERAL MEDICAL PROBLEM - General Chief Complaint: Lower Extremity Injury/Pain Stated Complaint: INJURED FOOT Time Seen by Provider: 09/24/20 13:25 Source of Information: Reports: Patient, RN, RN Notes Reviewed History Limitations: Reports: No Limitations - History of Present Illness INITIAL COMMENTS - FREE TEXT/NARRATIVE: Leisa is a 75 y/o female who presents to the ED via personal vehicle with complaints of right foot pain. The patient reports stepping on uneven ground earlier today and experiencing pain in her lateral, dorsal foot. She now has slight soft tissue swelling and ecchymosis to the area of pain. She is concerned about fracture as she fractured her toes on the left foot in a similar fashion about one year prior. She denies loss of motor or sensory function to the extremity. She has not taken any medications for pain and notes at rest she does not experience pain. Right Feet Pain Score (Numeric/FACES): 6 - Related Data Allergies Allergy/AdvReac Type Severity Reaction Status Date / Time Iodinated Contrast Media Allergy Intermediate Hives Verified 09/24/20 12:45 [Iodinated Contrast- Oral and IV Dye] adhesive tape Allergy Mild Rash Verified 09/24/20 12:45 benzalkonium chloride Allergy Mild Rash Verified 09/24/20 12:45 [From Neosporin Nickolas To Go] pramoxine HCl Allergy Mild Rash Verified 09/24/20 12:45 [From Neosporin Nickolas To Go] Home Meds: Home Meds Gabapentin [Neurontin] 600 mg PO BID 04/15/15 [History] Multivitamin [Multiple Vitamins] 1 tab PO DAILY 04/15/15 [History] Timolol [Betimol 0.5% Ophth Soln] 1 drop EYERT BID 04/15/15 [History] atorvaSTATin [Lipitor] 40 mg PO BEDTIME 04/15/15 [History] Calcium Carbonate/Vitamin D3 [Calcium 500-Vit D3 400 Tablet] 1 tab PO ACLUNCH 10/24/15 [History] Levothyroxine [Synthroid] 112 mcg PO ACBREAKFAST 10/24/15 [History] Albuterol [Ventolin HFA] 2 puff INH Q4H PRN 11/23/16 [History] Fludrocortisone [Florinef] 0.1 mg PO BIDMEALS 15 Days #30 tablet 07/11/17 [Rx] Aspirin [Halfprin] 81 mg PO DAILY 12/12/17 [History] Potassium Chloride [Klor-Con 10] 20 meq PO DAILY 14 Days #14 tab.er 12/14/17 [Rx] Furosemide [Lasix] 20 mg PO DAILY 08/01/18 [History] Metoprolol Succinate [Toprol XL] 25 mg PO DAILY 08/01/18 [History] Fluticasone Propionate [Flonase Allergy Relief] 1 spray INH DAILY 08/08/18 [History] Midodrine 10 mg PO BID 08/08/18 [History] Past Medical History HEENT History: Reports: Cataract, Glaucoma, Other (See Below) Other HEENT History: dry eye disease, Lichen Planus Cardiovascular History: Reports: Afib, Arrhythmia, High Cholesterol Respiratory History: Reports: Asthma, Bronchitis, Recurrent, Other (See Below) Other Respiratory History: LUNG NODULES Gastrointestinal History: Reports: Cholelithiasis, Chronic Constipation, Colon Polyp, Diverticulosis, GERD Genitourinary History: Reports: Other (See Below) Other Genitourinary History: kidney disease-amyloidosis PRESS SERVICE READER History: Reports: , Other (See Below) Other PRESS SERVICE READER History: lichen sclerosus(vulva) Musculoskeletal History: Reports: Arthritis, Fracture, Osteoarthritis, Osteoporosis, Other (See Below) Other Musculoskeletal History: DJD. HX OF RIGHT HIP FRACTURE Neurological History: Reports: CVA, Migraines, TIA, Other (See Below) Other Neuro History: restless legs Psychiatric History: Reports: Anxiety Endocrine/Metabolic History: Reports: Hypothyroidism, Osteoporosis Hematologic History: Reports: Anemia, B12 Deficiency, Other (See Below) Other Hematologic History: LIGHT CHAIN AMYLOIDOSIS Immunologic History: Reports: None Oncologic (Cancer) History: Reports: Breast Dermatologic History: Reports: None - Infectious Disease History Infectious Disease History: Reports: Chicken Pox, Measles, Mumps, Pertussis (Whooping Cough) - Past Surgical History Head Surgeries/Procedures: Reports: None HEENT Surgical History: Reports: Cataract Surgery, Laser Surgery Cardiovascular Surgical History: Reports: None Respiratory Surgical History: Reports: None GI Surgical History: Reports: Colonoscopy, EGD, Polypectomy Female Surgical History: Reports: Mastectomy Other Female Surgeries/Procedures: LEFT SIDED MASTECTOMY Endocrine Surgical History: Reports: None Neurological Surgical History: Reports: None Musculoskeletal Surgical History: Reports: Other (See Below) Other Musculoskeletal Surgeries/Procedures:: Right hip fracture with repair, nail placed. left great screws placed with fusion, pin in right foot above right great toe for bunyon. right hand two knuckles replaced. Oncologic Surgical History: Reports: Mastectomy, Other (See Below) Other Oncologic Surgeries/Procedures: Left breast mastectomy Dermatological Surgical History: Reports: Skin Biopsy Social & Family History - Family History Family Medical History: No Pertinent Family History - Tobacco Use Tobacco Use Status *Q: Never Tobacco User - Caffeine Use Caffeine Use: Reports: Coffee Other Caffeine Use: 1 CUP OF TEA OR COFFEE, OCCASIONALLY - Recreational Drug Use Recreational Drug Use: No - Living Situation & Occupation Living situation: Reports: , with Spouse Occupation: Retired Review of Systems - Review of Systems Review Of Systems: Comprehensive ROS is negative, except as noted in HPI. ED EXAM, GENERAL - Physical Exam Exam: See Below Exam Limited By: No Limitations General Appearance: Alert, No Apparent Distress Eye Exam: Bilateral Eye: EOMI, Normal Inspection, PERRL (3mm) Ears: Normal External Exam, Hearing Grossly Normal Nose: Normal Inspection, Normal Mucosa, No Blood Throat/Mouth: Normal Inspection, Normal Oropharynx, Normal Voice, No Airway Compromise Head: Atraumatic, Normocephalic Neck: Normal Inspection, Supple, Non-Tender, Full Range of Motion Respiratory/Chest: No Respiratory Distress, Lungs Clear, Normal Breath Sounds, No Accessory Muscle Use, Chest Non-Tender Cardiovascular: Normal Peripheral Pulses, Regular Rate, Rhythm, No Edema, No Gallop, No JVD, No Murmur, No Rub Peripheral Pulses: 1+: Posterior Tibial (L), Posterior Tibial (R), 2+: Radial (L), Radial (R), Dorsalis Pedis (L), Dorsalis Pedis (R) Extremities: Normal Range of Motion, Normal Capillary Refill, Leg Pain (To right dorsal lateral foot), Other (Small soft tissue swelling to right lateral dorsal foot with faint ecchymosis). No: Joint Swelling, Increased Warmth, Mottled, Pallor Neurological: Alert, Oriented, CN II-XII Intact, Normal Cognition, No Motor/Sensory Deficits. No: Abnormal Gait (Patient used walking boot for ambulation) Psychiatric: Normal Affect, Normal Mood Skin Exam: Warm, Dry, Intact, Ecchymosis (To right lateral dorsal foot). No: Increased Warmth, Mottled, Pallor Course - Vital Signs Last Recorded V/S: Last Vital Signs Temp 98.4 F 09/24/20 12:48 Pulse 85 09/24/20 12:48 Resp 16 09/24/20 12:48 BP 169/82 H 09/24/20 12:48 Pulse Ox 95 09/24/20 12:48 - Re-Assessments/Exams Free Text/Narrative Re-Assessment/Exam: 09/24/20 Findings of examination and imaging reviewed with patient. Patient to continue in walking boot, non-weightbearing for 3-5 days. Patient instructed to follow up with orthopedic surgeon regarding today's findings; images pushed to [employer] via PACs at patient's request. Supportive cares reviewed, as well as red flag signs and symptoms which would warrant reevaluation. Departure - Departure Time of Disposition: 13:40 Disposition: Home, Self-Care 01 Condition: Good Clinical Impression: Metatarsal bone fracture Qualifiers: Encounter type: initial encounter Metatarsal bone: fifth Fracture type: closed Fracture alignment: nondisplaced Laterality: right Qualified Code(s): S92.354A - Nondisplaced fracture of fifth metatarsal bone, right foot, initial encounter for closed fracture - Discharge Information *PRESCRIPTION DRUG MONITORING PROGRAM REVIEWED*: Not Applicable *COPY OF PRESCRIPTION DRUG MONITORING REPORT IN PATIENT NERISSA: Not Applicable Instructions: Metatarsal Fracture Forms: ED Department Discharge Additional Instructions: 1.) Follow up with orthopedic surgeon in 3-5 days. 2.) Keep immobilizer in place; no weight bearing to the right foot until orthopedic follow up. 3.) Apply ice to the affected area as pain and swelling persist. 4.) You may also take acetaminophen (Tylenol) 1000mg every six hours, as pain persists. Sepsis Event Note (ED) - Evaluation Sepsis Screening Result: No Definite Risk - Focused Exam Vital Signs: Vital Signs Temp Pulse Resp BP Pulse Ox 09/24/20 12:48 98.4 F 85 16 169/82 H 95
== END 2020-09-24 14:03 | disposition home or self-care (01) ==
LOC: DL.ED 12:27
DX: S92.354A Nondisplaced fracture of fifth metatarsal bone, right foot, initial encounter for closed fracture (principal); I48.91 Unspecified atrial fibrillation; E78.00 Pure hypercholesterolemia, unspecified; M19.90 Unspecified osteoarthritis, unspecified site; E03.9 Hypothyroidism, unspecified; Z91.041 Radiographic dye allergy status; Z91.048 Other nonmedicinal substance allergy status; Z88.8 Allergy status to other drugs, medicaments and biological substances; Z79.82 Long term (current) use of aspirin; Z79.899 Other long term (current) drug therapy; W22.8XXA Striking against or struck by other objects, initial encounter
CPT/HCPCS: 73630-RT; 99283-25

== ENCOUNTER 2023-10-26 06:13 | Day surgery (SDC) | payer MEDICARE, BC ==
[~2023-10-26 06:13] MED LIST: Midazolam 1 MG/ML 2 ML SDV ONE; fentaNYL 100 MCG/2 ML SDV ONE
[2023-10-26] MEDS: Dextrose 5%-0.45% NaCl 1,000 ML IV SCH (06:46)
[2023-10-26] MEDS: fentaNYL 100 MCG/2 ML SDV IV ONE ×2 (07:02→07:03)
[2023-10-26] MEDS: Midazolam 1 MG/ML 2 ML SDV IV ONE ×2 (07:04→07:05)
[2023-10-26] MEDS: Naloxone 2 MG/2 ML Syringe ONE (07:10)
[2023-10-26 09:43] VITALS: BP 145/70; PULSE 64
== END 2023-10-26 09:53 | disposition home or self-care (01) ==
LOC: DL.ENDO 06:13
PROVIDERS: ATTEND Internal Medicine Gastroenterology
DX: R15.2 Fecal urgency (principal); K57.30 Diverticulosis of large intestine without perforation or abscess without bleeding; F41.9 Anxiety disorder, unspecified; E78.5 Hyperlipidemia, unspecified; K21.9 Gastro-esophageal reflux disease without esophagitis
CPT/HCPCS: J2250; J2310; J3010; J7799

== ENCOUNTER 2024-09-20 17:29 | Emergency (ER) | payer MEDICARE, BC ==
[2024-09-20 17:52] VITALS: BP 131/81; PULSE 88
== END 2024-09-20 18:32 | disposition home or self-care (01) ==
LOC: DL.ED 17:29
DX: S89.92XA Unspecified injury of left lower leg, initial encounter (principal); S89.91XA Unspecified injury of right lower leg, initial encounter; I48.91 Unspecified atrial fibrillation; E78.00 Pure hypercholesterolemia, unspecified; Z91.041 Radiographic dye allergy status; Z91.048 Other nonmedicinal substance allergy status; Z91.09 Other allergy status, other than to drugs and biological substances; Z88.8 Allergy status to other drugs, medicaments and biological substances; Z79.82 Long term (current) use of aspirin; Z86.73 Personal history of transient ischemic attack (TIA), and cerebral infarction without residual deficits; W18.39XA Other fall on same level, initial encounter; Y93.89 Activity, other specified
CPT/HCPCS: 73562-LT; 73562-RT; 99283

== ENCOUNTER 2024-12-16 08:54 | Emergency (ER) | payer MEDICARE, BC ==
[2024-12-16 09:04] VITALS: BP 118/83; PULSE 81
== END 2024-12-16 09:41 | disposition home or self-care (01) ==
LOC: DL.ED 08:54
DX: H65.191 Other acute nonsuppurative otitis media, right ear (principal); I48.91 Unspecified atrial fibrillation; E78.00 Pure hypercholesterolemia, unspecified; Z91.041 Radiographic dye allergy status; Z91.048 Other nonmedicinal substance allergy status; Z88.8 Allergy status to other drugs, medicaments and biological substances; Z91.09 Other allergy status, other than to drugs and biological substances; Z79.899 Other long term (current) drug therapy; Z79.82 Long term (current) use of aspirin; Z79.890 Hormone replacement therapy; Z86.73 Personal history of transient ischemic attack (TIA), and cerebral infarction without residual deficits
CPT/HCPCS: 87081; 87430; 99283